=== PATIENT | male | born 1955 | race Caucasian/White ===

== ENCOUNTER 2019-09-11 01:46 | Inpatient (IN) | payer MEDICARE, OTHER ==
[2019-09-11] MEDS ORDERED: ONDANSETRON 4 MG/2 ML VIAL IVP PRN (02:03)
[2019-09-11] MEDS ORDERED: NALOXONE 0.4 MG/ML 1 ML VIAL IV PRN (02:03)
--- NOTE | 2019-09-11 02:03 | ED ---
Extremity Problem HPI - General Stated complaint: foot infection Time Seen by Provider: 09/11/19 01:48 - History of Present Illness Initial comments: This patient is 64-year-old man who presents as a transfer from [facility] to have orthopedic surgery evaluation of his left foot. The patient had been wearing a left foot boot as a constant once of having Charcot foot. Patient reportedly had been wearing the boot for extended period of weeks and then when it was taken off his foot was noted to be red, warm, and swollen. The patient states that he does have a little bit of pain but he has neuropathy so does not feel too much in either foot. He was seen at the other hospital, where he had computed tomography scan showing a what appeared to be infection into the forefoot and he was transferred here. The patient did receive dose of cefepime and reportedly vancomycin as well. MD Complaint: extremity pain, extremity swelling -: week(s) Location: left, lower extremity History of Same: No Radiation: none Quality: dull Consistency: constant Improves with: nothing Associated Symptoms: fever, other (Generalized weakness) - Related Data Home Medications Medication Instructions Recorded Confirmed Albuterol Nebulizer 1 ampul INHALATION QID PRN 03/04/14 03/09/14 Aspirin 325 mg PO DAILY 03/04/14 03/09/14 Insulin NPH Hum/Reg Insulin Hm 100 units SQ BID 03/04/14 03/09/14 [NovoLIN 70-30 100 UNIT/ML VIAL] Lisinopril-Hctz 20-12.5 mg 1 each PO DAILY 03/04/14 03/09/14 [Zestoretic 20-12.5] Metoprolol Er 200 mg PO BID 03/04/14 03/09/14 Simvastatin [Zocor] 20 mg PO DAILY 03/04/14 03/09/14 metFORMIN HCL [Glucophage] 500 mg PO BID 03/04/14 03/09/14 Allergies Allergy/AdvReac Type Severity Reaction Status Date / Time Penicillins Allergy Rash/Hives Verified 09/11/19 02:06 Review of Systems ROS Statement: Those systems with pertinent positive or pertinent negative responses have been documented in the HPI. ROS Other: All systems not noted in ROS Statement are negative. Constitutional: Reports: fever, weakness Respiratory: Denies: cough, dyspnea Cardiovascular: Reports: edema (Left foot). Denies: chest pain, palpitations, syncope Gastrointestinal: Denies: abdominal pain, nausea, vomiting Genitourinary: Denies: dysuria, hematuria Musculoskeletal: Reports: as per HPI, joint swelling (Left foot). Denies: back pain Skin: Denies: rash Neurological: Denies: headache, weakness, numbness Past Medical History Past Medical History: Asthma, Diabetes Mellitus, Hyperlipidemia, Hypertension, Myocardial Infarction ([place]) Additional Past Medical History / Comment(s): PT STATES WAS TOLD HAD SILENT MS IN LOWER HALF OF HEART. CONSTANT SINUS PROBLEMS-RUNNY NOSE-CLEAR- PHLEGM IN THROAT-. HARD TO SWALLOW FOOD AT TIMES-TRIES TO DRINK A LOT OF WATER WITH FOOD- HAS HAD UGI- WAS OK-CAUSES PRESSURE IN CHEST AREA WHEN HAS TO EAT FOOD LIKE BREADS. SOB ON EXERTION-TIRES EASILY. WAS TOLD PROBABLY HAS SLEEP APNEA BUT NEVER TESTED. DIVERTICULOSIS. CATARACT LEFT EYE Last Myocardial Infarction Date:: UNKNOWN History of Any Multi-Drug Resistant Organisms: MRSA Date of last positivie culture/infection: 11/2013 MDRO Source:: BACK Past Surgical History: Heart Catheterization Additional Past Surgical History / Comment(s): LT SHOULDER SURGERY- 4 PINS IN- INJURY @ WORK. LIPOMA OFF AREA BELOW RT BREAST & RT UPPER THIGH Past Anesthesia/Blood Transfusion Reactions: No Reported Reaction Smoking Status: Never smoker - Past Family History Father Family Medical History: Cancer, CVA/TIA, Myocardial Infarction ([place]) Additional Family Medical History / Comment(s): CA-VOICE BOX Mother Family Medical History: Cancer Additional Family Medical History / Comment(s): COLON CA General Exam General appearance: alert, in no apparent distress Head exam: Present: atraumatic, normocephalic Eye exam: Present: normal appearance. Absent: scleral icterus, conjunctival injection ENT exam: Present: normal oropharynx Respiratory exam: Present: normal lung sounds bilaterally. Absent: respiratory distress, wheezes, rales, rhonchi, stridor Cardiovascular Exam: Present: regular rate, normal rhythm, normal heart sounds. Absent: systolic murmur, diastolic murmur, rubs, gallop GI/Abdominal exam: Present: soft. Absent: distended, tenderness, guarding, rebound, rigid Extremities exam: Present: tenderness, pedal edema (Left) Neurological exam: Present: alert Skin exam: Present: warm, dry, erythema (Of the left lower extremity. Also swelling and tenderness of the left foot.). Absent: normal color, cyanosis, diaphoretic, petechiae, pallor Course Vital Signs 09/11/19 02:00 Temperature 100.5 F H Pulse Rate 95 Respiratory 18 Rate Blood Pressure 120/66 O2 Sat by Pulse 95 Oximetry Medical Decision Making - Medical Decision Making Patient is 64-year-old man with history of diabetes. He is transferred here to have evaluation and treatment of left foot infection. The patient has received initial dose of antibiotics. The case was discussed by the transferring facility with the orthopedic surgeon and they will see the patient. Disposition Clinical Impression: Left foot infection Disposition: ADMITTED IP TO THIS HOSP Condition: Serious Is patient prescribed a controlled substance at d/c from ED?: No Referrals: Stanley Murillo MD [Primary Care Provider] - 1-2 days
[2019-09-11] MEDS ORDERED: VANCOMYCIN IV PER PHARMACY 1 EACH MISC MISCELLANE PRN (02:06)
[2019-09-11] MEDS ORDERED: VANCOMYCIN 2,000 MG in SODIUM CHLORIDE 0.9% 500 ML 500 ML IVPB STA (02:08)
[2019-09-11] MEDS: ACETAMINOPHEN TAB 325 MG TAB PO PRN ×3 (02:37→22:06)
[2019-09-11] MEDS: SODIUM CHLORIDE 0.9% 1,000 ML IV SCH ×3 (02:38→17:37)
[2019-09-11] MEDS: HYDROmorphone 1 MG/ML 1 ML SYRINGE IVP PRN (02:38)
[2019-09-11 04:29] LABS: Calcium 8.5 mg/dL (8.4-10.2); Potassium 4.3 mmol/L (3.5-5.1)
[2019-09-11 05:30] LABS: Glucose,Whole Blood 226 mg/dL (75-99)
[2019-09-11 07:05] LABS: Glucose,Whole Blood 209 mg/dL (75-99)
[2019-09-11] MEDS: VANCOMYCIN 1,750 MG in SODIUM CHLORIDE 0.9% 500 ML 500 ML IVPB SCH ×2 (07:15→22:58)
[2019-09-11] MEDS: metFORMIN 500 MG TAB PO SCH ×2 (08:27→20:48)
[2019-09-11] MEDS ORDERED: LISINOPRIL-HCTZ 20-12.5 MG 1 EACH TAB PO SCH (09:00)
--- NOTE | 2019-09-11 09:51 | US ---
EXAMINATION TYPE: US venous doppler duplex LE LT DATE OF EXAM: 09/11/2019 9:36 AM COMPARISON: NONE CLINICAL HISTORY: Calf pain . Left foot infection SIDE PERFORMED: Left TECHNIQUE: The lower extremity deep venous system is examined utilizing real time linear array sonog elsi with graded compression, doppler sonography and color-flow sonography. VESSELS IMAGED: External Iliac Vein (EIV) Common Femoral Vein Deep Femoral Vein Greater Saphenous Vein * Femoral Vein Popliteal Vein Small Saphenous Vein * Proximal Calf Veins (* superficial vessels) Grayscale, color doppler, spectral doppler imaging performed of the deep veins of the left lower extr emity. There is normal flow, compressibility, vascular waveforms. Left Leg: Negative for DVT IMPRESSION: No sonographic evidence of deep venous thrombosis within the left lower extremity.
[2019-09-11] MEDS: FAMOTIDINE 20 MG TAB PO SCH ×2 (09:53→20:07)
[2019-09-11] MEDS: ATORVASTATIN 10 MG TAB PO SCH (09:53)
[2019-09-11] MEDS: LISINOPRIL 20 MG TAB PO SCH (09:53)
[2019-09-11 10:00] LABS: Glucose,Whole Blood 240 mg/dL (75-99)
[2019-09-11] MEDS: INSULIN ASPART (NovoLOG) 100 UNIT/ML VIAL SQ SCH ×4 (10:04→20:48)
--- NOTE | 2019-09-11 10:45 | P.CNOR ---
History of Present Illness - [facility] Consult date: 09/11/19 History of present illness: This patient is a 64-year-old male with a past medical history of diabetes, neuropathy, hypertension, and heart disease that was transferred to [facility] last night 09/10/2019 due to a left foot ulcer and infection. The patient has seen Dr. William as an outpatient for acute Charcot of the left fo ot. The patient states he last saw Dr. William in the office on 08/21/19. He is being followed for acute Charcot of the left foot with multiple tarsal metatarsal joint dislocations. The patient's left foot has been immobilized in a tall CAM boot. He states he takes his boot off daily and washes his foot, although he is unable to check the bottom of his foot. He states his son looked at the bottom of his foot yesterday, and told the patient that he has a large wound on the bottom of his foot. The patient therefore presented to [facility] for evaluation, where blood work and a CT scan of the left foot was obtained, which showed free air consistent with infection. The patient was grande bsequently transferred to [facility] for further evaluation and treatment. The patient was admitted under the care of internal medicine with a consult placed to orthopedic surgery for evaluation of his left foot ulcer. At the time of my exam, the patient states he isn't experiencing pain, as he has neuropathy and is unable to feel his feet. He states he has been feeling well the past week, he has been unable to eat due to nausea and "not feeling right". He states he does not check his feet regularly for wounds. He is unsure how long this ulcer has been present. He denies additional complaints today. Vital signs stable. Past Medical History Past Medical History: Asthma, Diabetes Mellitus, GERD/Reflux, Hearing Disorder / Deafness, Hyperlipidemia, Hypertension, Myocardial Infarction ([place]), Neurologic Disorder, Osteoarthritis (OA), Pneumonia, Sleep Apnea/CPAP/BIPAP Additional Past Medical History / Comment(s): parkinsons, neuropathy, Charcot's disease, PT STATES WAS TOLD HAD SILENT [place] IN LOWER HALF OF HEART. CONSTANT SINUS PROBLEMS-RUNNY NOSE-CLEAR- PHLEGM IN THROAT-. HARD TO SWALLOW FOOD AT TIMES-TRIES TO DRINK A LOT OF WATER WITH FOOD- HAS HAD UGI- WAS OK-CAUSES PRESSURE IN CHEST AREA WHEN HAS TO EAT FOOD LIKE BREADS. SOB ON EXERTION-TIRES EASILY. WAS TOLD PROBABLY HAS SLEEP APNEA BUT NEVER TESTED. DIVERTICULOSIS. CATARACT LEFT EYE Last Myocardial Infarction Date:: UNKNOWN History of Any Multi-Drug Resistant Organisms: MRSA Year Discovered:: 11/2013 MDRO Source:: BACK Past Surgical History: Cholecystectomy, Heart Catheterization, Orthopedic Surgery Additional Past Surgical History / Comment(s): LT SHOULDER SURGERY- 4 PINS IN- INJURY @ WORK. LIPOMA OFF AREA BELOW RT BREAST & RT UPPER THIGH Past Anesthesia/Blood Transfusion Reactions: No Reported Reaction Past Psychological History: No Psychological Hx Reported Smoking Status: Never smoker Past Alcohol Use History: Rare Past Drug Use History: None Reported - Past Family History Father Family Medical History: Cancer, CVA/TIA, Myocardial Infarction ([place]) Additional Family Medical History / Comment(s): CA-VOICE BOX Mother Family Medical History: Cancer Additional Family Medical History / Comment(s): COLON CA Medications and Allergies Home Medications Medication Instructions Recorded Confirmed Type Insulin NPH Hum/Reg Insulin Hm 85 units SQ BID 03/04/14 09/11/19 History [NovoLIN 70-30 100 UNIT/ML VIAL] Aspirin 81 mg PO DAILY 09/11/19 09/11/19 History Lisinopril 20 mg PO DAILY 09/11/19 09/11/19 History Metoprolol Succinate [Toprol XL] 200 mg PO DAILY 09/11/19 09/11/19 History Simvastatin 40 mg PO DAILY 09/11/19 09/11/19 History metFORMIN HCL 1,000 mg PO BID 09/11/19 09/11/19 History Allergies Allergy/AdvReac Type Severity Reaction Status Date / Time Penicillins Allergy Rash/Hives Verified 09/11/19 08:21 Physical Examination On examination, the patient is lying in bed in no apparent distress. He is alert and oriented 3. His head appears normocephalic and atraumatic. His breathing appears nonlabored. On inspection of the left lower extremity, there is diffuse swelling, erythema of the left foot, ankle, calf. There is a <1 cm plantar ulcer in the lateral aspect of the midfoot. There is foul-smelling drainage from the ulcer. No surrounding fluctuance. No pain with passive range of motion of the toes or ankle. There is tenderness to palpation of the calf. Sensation of the foot is subjectively decreased secondary to neuropathy. Motor function appears to be intact of the left lower extremity. The left lower extremity is warm and well-perfused with brisk capillary refill distally. Results Computed tomography scan left foot with contrast 09/10/2019, obtained at [facility] in [place], [place] (per radiology report): Extensive deformity of the midfoot consistent with neuropathic arthropathy with some destructive changes and subluxation deformity. There is Lis franc dislocation of the midfoot with subluxation of the bases of the metatarsals. There soft tissue air that is suspicious for infection. There is an apparent plantar ulcer at the lateral aspect of the midfoot that could be in communication with the intertarsal joints. The findings are certainly suspicious for septic arthritis of the midfoot. - Labs Labs: Abnormal Lab Results - Last 24 Hours (Table) 09/11/19 09/11/19 09/11/19 Range/Units 03:46 05:17 06:54 Sodium 135 L (137-145) mmol/L BUN 42 H (9-20) mg/dL Creatinine 1.38 H (0.66-1.25) mg/dL Glucose 212 H (74-99) mg/dL POC Glucose (mg/dL) 226 H 209 H (75-99) mg/dL Result Diagrams: 09/11/19 03:46 Assessment and Plan Assessment: Acute Charcot left foot with multiple tarsal metatarsal joint dislocations, with open plantar ulcer. Plan: I discussed the clinical and imaging findings with the patient. We will defer management of the patient's left foot plantar ulcer to Dr. Caldwell vascular surgeon and the wound care team. Patient should remain non-weight bearing on left foot. Physical therapy ordered for gait and balance training. The patient will be kept NPO until evaluation by Dr. Caldwell. Left lower extremity Doppler US ordered to rule-out DVT, as the patient has been immobilized in a tall CAM boot. The patient may follow-up in the office as an outpatient in regards to his left foot Charcot arthritis. Patient discussed with Dr. William.
--- NOTE | 2019-09-11 11:06 | P.CONS ---
History of Present Illness - Reason for Consult Consult date: 09/11/19 Wound care - History of Present Illness This is a 64-year-old male who was transferred from [facility] related pain and infection to the left forefoot plantar aspect. Patient has past medical history of diabetes, neuropathy, hypertension, and heart disease. The patient has been seen by Dr. William in the outpatient setting for acute Charcot of left foot. The patient had seen Dr. William in the office on 07/27. The left foot was immobilized in a tall cam boot. The patient stated that he takes the boot off daily and watches his feet however he has not been able to check the bottom of his foot. He was noticing some nuchal see walking, nausea and just not feeling right to the bottom of his foot and his son looked at it finding a large wound to the bottom of the foot. The patient then was presented to the [facility] for evaluation blood work and a computed tomography scan of the foot was obtained. CT showed free air consistent with infection. Review of Systems Review Of Systems: Constitutional: No fever, reports chills, no night sweats. No weight change. Report weakness and fatigue no lethargy. No daytime sleepiness. Integumentary:reports wounds, no lesions. No rash or pruritus. No unusual bruising. No change in hair or nails. Past Medical History Past Medical History: Asthma, Diabetes Mellitus, GERD/Reflux, Hearing Disorder / Deafness, Hyperlipidemia, Hypertension, Myocardial Infarction ([place]), Neurologic Disorder, Osteoarthritis ([place]), Pneumonia, Sleep Apnea/CPAP/BIPAP Additional Past Medical History / Comment(s): parkinsons, neuropathy, Charcot's disease, PT STATES WAS TOLD HAD SILENT AL IN LOWER HALF OF HEART. CONSTANT SINUS PROBLEMS-RUNNY NOSE-CLEAR- PHLEGM IN THROAT-. HARD TO SWALLOW FOOD AT TIMES-TRIES TO DRINK A LOT OF WATER WITH FOOD- HAS HAD UGI- WAS OK-CAUSES PRESSURE IN CHEST AREA WHEN HAS TO EAT FOOD LIKE BREADS. SOB ON EXERTION-TIRES EASILY. WAS TOLD PROBABLY HAS SLEEP APNEA BUT NEVER TESTED. DIVERTICULOSIS. CATARACT LEFT EYE Last Myocardial Infarction Date:: UNKNOWN History of Any Multi-Drug Resistant Organisms: MRSA Year Discovered:: 11/2013 MDRO Source:: BACK Past Surgical History: Cholecystectomy, Heart Catheterization, Orthopedic Surgery Additional Past Surgical History / Comment(s): LT SHOULDER SURGERY- 4 PINS IN- INJURY @ WORK. LIPOMA OFF AREA BELOW RT BREAST & RT UPPER THIGH Past Anesthesia/Blood Transfusion Reactions: No Reported Reaction Past Psychological History: No Psychological Hx Reported Smoking Status: Never smoker Past Alcohol Use History: Rare Past Drug Use History: None Reported - Past Family History Father Family Medical History: Cancer, CVA/TIA, Myocardial Infarction ([place]) Additional Family Medical History / Comment(s): CA-VOICE BOX Mother Family Medical History: Cancer Additional Family Medical History / Comment(s): COLON CA Medications and Allergies Home Medications Medication Instructions Recorded Confirmed Type Insulin NPH Hum/Reg Insulin Hm 85 units SQ BID 03/04/14 09/11/19 History [NovoLIN 70-30 100 UNIT/ML VIAL] Aspirin 81 mg PO DAILY 09/11/19 09/11/19 History Lisinopril 20 mg PO DAILY 09/11/19 09/11/19 History Metoprolol Succinate [Toprol XL] 200 mg PO DAILY 09/11/19 09/11/19 History Simvastatin 40 mg PO DAILY 09/11/19 09/11/19 History metFORMIN HCL 1,000 mg PO BID 09/11/19 09/11/19 History Allergies Allergy/AdvReac Type Severity Reaction Status Date / Time Penicillins Allergy Rash/Hives Verified 09/11/19 08:21 Physical Exam Vitals: Vital Signs Temp Pulse Pulse Resp BP BP Pulse Ox 09/11/19 07:00 98.4 F 90 18 134/74 95 09/11/19 04:26 15 09/11/19 04:08 98.4 F 95 15 114/66 94 L 09/11/19 03:55 88 18 100/53 98 09/11/19 02:00 100.5 F H 95 18 120/66 95 Intake and Output 09/10/19 09/11/19 09/11/19 22:59 06:59 14:59 Other: Voiding Method Urinal Toilet Urinal Weight 113.398 kg Physical exam: General Appearance: Alert, cooperative, no distress, appears stated age. Skin: Ulceration to left forefoot plantar aspect measuring approximately 0.5 x 1 x 3 cm, able to palpate bone, purulent drainage from site, large amount of slough and nonviable tissue noted, erythema and induration to the periwound. Neuropathy noted, 1+ pedal pulse, all other Skin color, texture, tugor normal, no rashes or lesions. Neurologic: Alert oriented x3 Results CBC & Chem 7: 09/11/19 03:46 Labs: Abnormal Lab Results - Last 24 Hours (Table) 09/11/19 09/11/19 09/11/19 Range/Units 03:46 05:17 06:54 Sodium 135 L (137-145) mmol/L BUN 42 H (9-20) mg/dL Creatinine 1.38 H (0.66-1.25) mg/dL Glucose 212 H (74-99) mg/dL POC Glucose (mg/dL) 226 H 209 H (75-99) mg/dL 09/11/19 Range/Units 09:48 Sodium (137-145) mmol/L BUN (9-20) mg/dL Creatinine (0.66-1.25) mg/dL Glucose (74-99) mg/dL POC Glucose (mg/dL) 240 H (75-99) mg/dL Assessment and Plan (1) Type 2 diabetes mellitus with diabetic foot ulcer Current Visit: Yes Status: Acute Code(s): E11.621 - TYPE 2 DIABETES MELLITUS WITH FOOT ULCER; L97.509 - NON-PRESSURE CHRONIC ULCER OTH PRT UNSP FOOT W UNSP SEVERITY SNOMED Code(s): 766142587 (2) Left foot infection Current Visit: Yes Status: Acute Code(s): L08.9 - LOCAL INFECTION OF THE SKIN AND SUBCUTANEOUS TISSUE, UNSP SNOMED Code(s): 749193658 Plan: Diabetic foot ulcer grade 3 Plan: Wound culture obtained, MRI of the foot with and without contrast to rule out osteomyelitis, consult for Dr. Caldwell for possible surgical wound debridement. Arterial Doppler ordered. Venous Dopplers negative for DVT. apply absorptive silver rope moistened, dry gauze and rolled gauze to secure. Remove the absorptive silver rope prior to the MRI and reapply once MRI is complete. Discussed with patient the importance of continuing care treatment in outpatient setting. Patient is agreeable verbalized understanding. Patient to be set up with wound care outpatient. Thank you for the consultation. Any questions please contact the wound care center DNP note has been reviewed and discussed with Dr. Vinson and the impression and plan of care has been directed as dictated.
[2019-09-11 12:10] LABS: Glucose,Whole Blood 199 mg/dL (75-99)
[2019-09-11] MEDS: ASPIRIN 81 MG PO SCH (12:27)
[2019-09-11 13:29] VITALS: BMI 35.9
--- NOTE | 2019-09-11 14:35 | CONS ---
CONSULTATION Patient a 64-year-old diabetic male. Patient has a left Charcot foot under care of Dr. William as an outpatient. Patient developed some redness on the dorsal aspect of the foot and there is an open wound on the plantar aspect of the left foot that she noticed a few days ago and has been admitted for further evaluation. CT scan showed there is soft tissue that is suspicious for infection. Patient also has a Charcot foot deformity of the left foot. MEDICAL HISTORY: History of diabetes mellitus, hyperlipidemia, hypertension, myocardial infarction in the past, sleep apnea. Patient is in his room, lying comfortably in bed. NECK: Supple, trachea central. CHEST: Clear. ABDOMEN: Soft, femorals are not not palpable, posterior tibial, dorsalis pedis by the Doppler. Left foot dorsal aspect has some swelling and there is an open wound on the plantar aspect of the foot which is muscle deep. PLAN: Culture has been taken. Patient on vancomycin, excess silver rope is seen in the wound. We will watch very closely and will continue with the vancomycin. Discussed the options with the patient. We will follow very closely and review this in the morning. He may need some open wound debridement if needed. First we try to use IV antibiotic if cellulitis and the dorsal aspect of the foot will be watched very closely. Thank you very much. MMODL / IJN: [id number] /
--- NOTE | 2019-09-11 16:54 | MR ---
EXAMINATION TYPE: MR foot LT wo/w con DATE OF EXAM: 09/11/2019 COMPARISON: HISTORY: Rule out osteomyelitis, diabetic foot ulceration CONTRAST: Standard multiplanar, multisequence MRI departmental protocol utilizing 11.5 mL intravenous Gadavist gadolinium contrast. There is extensive subcutaneous edema of the forefoot. There is lateral subluxation at the third and fourth and fifth tarsometatarsal joints. There is abnormal decreased signal on the T1 images in the n avicular bone and the second and third cuneiform bones. There is abnormal decreased signal in the bas e of the fourth and fifth metatarsals. There is patchy decreased signal in the first cuneiform bone. Cuboidal bone also shows edema. I see no displaced fracture. Contrast images show no pathologic enhan cement of all of the edematous bones of the midfoot. There are multiple variable sized areas of decre ased signal in multiple areas of the midfoot related to soft tissue air also seen on the CT scan yest andrew. IMPRESSION: Disruption of multiple joints of the midfoot consistent with neuropathic arthropathy. There is latera l subluxation at the third and fourth and fifth tarsal metatarsal joints consistent with Lisfranc dis ruption.. Diffuse subcutaneous edema. Multiple areas of pathologic enhancement are suspicious for ost eomyelitis. There is increase in the soft tissue air bubbles in the mid foot compared to CT scan yest erday and consistent with infection.
[2019-09-11 17:28] LABS: Glucose,Whole Blood 198 mg/dL (75-99)
[2019-09-11] MEDS: CEFEPIME 2 GM in SODIUM CHLORIDE 0.9% 100 ML IVPB SCH (17:38)
[2019-09-11] MEDS: INSULN ASP PRT/INSULIN ASPART 100 UNIT/ML 10 ML VIAL SQ SCH (18:02)
[2019-09-11] MEDS: CLINDAMYCIN 900 MG in DEXTROSE 5% IN WATER 50 ML IVPB SCH ×2 (18:22)
[2019-09-11 20:12] LABS: Glucose,Whole Blood 217 mg/dL (75-99)
[2019-09-11] MEDS: CARBIDOPA-LEVODOPA 25-100 MG 1 EACH TAB PO SCH (20:49)
--- NOTE | 2019-09-11 22:17 | P.HPIM ---
History of Present Illness H&P Date: 09/11/19 Chief Complaint: Left foot wound History of presenting complaint: This is a 64-year-old patient of Dr. Stanley Murillo. Chronic stable medical conditions include diabetes, GERD, hyperlipidemia, Parkinson's disease, severe peripheral neuropathy and some dysphagia. Patient being followed by Dr[facility]. For left Charcot foot. Hasn't his son came and discomfort is a significant wound on the plantar aspect. Patient has minimal sensation in that foot. The baseline patient's vision is slightly blurry.. Patient was sent down here to be evaluated by orthopedics. Because of the significant wound rather deep on the plantar aspect, vascular surgery Dr. Caldwell was also consulted. Has had some low-grade fevers and chills. Appetite is fair. Baseline uses a walker. Lives alone. Review of systems: GEN.: Tired EYES: Baseline blurry vision HEENT: None NECK: None RESPIRATORY: None CARDIOVASCULAR: None GASTROINTESTINAL: Normally has about average of 10 bowel movements a day GENITOURINARY: None MUSCULOSKELETAL: None LYMPHATICS: None HEMATOLOGICAL: None PSYCHIATRY: None NEUROLOGICAL: Poor peripheral sensation Past medical history to include: Diabetes, GERD, hypertension, hyperlipidemia, Parkinson's disease, peripheral neuropathy, some dysphagia, gait dysfunction uses a walker, left Charcot foot Social history: Does not smoke, alcohol, rarely, lives alone. Does use a walker Physical examination: VITAL SIGNS: 100.5, 95, 18, 120/66, 95% room air GENERAL: [BMI 35.9, sitting up, propped up in bed EYES: Pupils equal. Conjunctiva normal. HEENT: External appearance of nose and ears normal, oral cavity grossly normal. NECK: JVD not raised; masses not palpable. HEART: First and second heart sounds are normal; no edema. LUNGS: Respiratory rate normal; clear to auscultation. ABDOMEN: Soft, nontender, liver spleen not palpable, no masses palpable. PSYCH: Alert and oriented x3; mood and affect normal. NEUROLOGICAL: [Cranial nerves grossly intact; no facial asymmetry, decreased sensation distally, bradykinesia LYMPHATICS: No lymph nodes palpable in the axilla and neck EXTREMITY: Left foot is rather large disfigured, large wound on the plantar aspect more details and pictures the chart INVESTIGATIONS, reviewed in the clinical context: Impression 4.3 bun 42 creatinine 1.38 Accu-Cheks 212, 226 Left leg Doppler-negative for DVT Assessment: -This is a patient with long-standing left Charcot foot which has been in a boot for last 3-4 months. Now patient presents with a large deep wound down to the bone. Some gas bubbles noted. Strongly suspicious for gas-forming organism. Patient will need debridement and antibiotics. -Diabetic foot phone on the plantar aspect left foot -Chronic left Charcot foot -Diabetes mellitus type 2 causing peripheral neuropathy -GERD -Hyperlipidemia -Chronic dysphagia likely from Parkinson's -Idiopathic Parkinson's disease -Suspect chronic kidney disease secondary to diabetic nephropathy Plan: Patient is already started on cefepime, clindamycin and vancomycin. Given the renal failure will stopped the vancomycin . Consultations have been made to vascular surgery, ID and orthopedics. Accu-Cheks will be followed home medications resumed. Lovenox for DVT prophylaxis. Patient be taken to the or for debridement. Patient will need more radical surgery down the road. We looking into some protracted course of antibiotics here. Foot MRI was ordered. We will check UA and repeat ultrasound Past Medical History Past Medical History: Asthma, Diabetes Mellitus, GERD/Reflux, Hearing Disorder / Deafness, Hyperlipidemia, Hypertension, Myocardial Infarction ([place]), Neurologic Disorder, Osteoarthritis (OA), Pneumonia, Sleep Apnea/CPAP/BIPAP Additional Past Medical History / Comment(s): parkinsons, neuropathy, Charcot's disease, PT STATES WAS TOLD HAD SILENT [place] IN LOWER HALF OF HEART. CONSTANT SINUS PROBLEMS-RUNNY NOSE-CLEAR- PHLEGM IN THROAT-. HARD TO SWALLOW FOOD AT TIMES-TRIES TO DRINK A LOT OF WATER WITH FOOD- HAS HAD UGI- WAS OK-CAUSES PRESSURE IN CHEST AREA WHEN HAS TO EAT FOOD LIKE BREADS. SOB ON EXERTION-TIRES EASILY. WAS TOLD PROBABLY HAS SLEEP APNEA BUT NEVER TESTED. DIVERTICULOSIS. CATARACT LEFT EYE Last Myocardial Infarction Date:: UNKNOWN History of Any Multi-Drug Resistant Organisms: MRSA Date of last positivie culture/infection: 11/2013 MDRO Source:: BACK Past Surgical History: Cholecystectomy, Heart Catheterization, Orthopedic Surgery Additional Past Surgical History / Comment(s): LT SHOULDER SURGERY- 4 PINS IN- INJURY @ WORK. LIPOMA OFF AREA BELOW RT BREAST & RT UPPER THIGH Past Anesthesia/Blood Transfusion Reactions: No Reported Reaction Past Psychological History: No Psychological Hx Reported Smoking Status: Never smoker Past Alcohol Use History: Rare Past Drug Use History: None Reported - Past Family History Father Family Medical History: Cancer, CVA/TIA, Myocardial Infarction ([place]) Additional Family Medical History / Comment(s): CA-VOICE BOX Mother Family Medical History: Cancer Additional Family Medical History / Comment(s): COLON CA Medications and Allergies Home Medications Medication Instructions Recorded Confirmed Type Insulin NPH Hum/Reg Insulin Hm 85 units SQ BID 03/04/14 09/11/19 History [NovoLIN 70-30 100 UNIT/ML VIAL] Aspirin 81 mg PO DAILY 09/11/19 09/11/19 History Carbidopa-Levodopa 25-100 mg 1 each PO QID 09/11/19 09/11/19 History [Sinemet 25-100] Lisinopril 20 mg PO BID 09/11/19 09/11/19 History Metoprolol Succinate [Toprol XL] 200 mg PO DAILY 09/11/19 09/11/19 History Simvastatin 40 mg PO DAILY 09/11/19 09/11/19 History metFORMIN HCL 1,000 mg PO BID 09/11/19 09/11/19 History Allergies Allergy/AdvReac Type Severity Reaction Status Date / Time Penicillins Allergy Rash/Hives Verified 09/11/19 08:21 Physical Exam Vitals: Vital Signs Temp Pulse Pulse Resp BP BP Pulse Ox 09/11/19 07:00 98.4 F 90 18 134/74 95 09/11/19 04:26 15 09/11/19 04:08 98.4 F 95 15 114/66 94 L 09/11/19 03:55 88 18 100/53 98 09/11/19 02:00 100.5 F H 95 18 120/66 95 Intake and Output 09/10/19 09/11/19 09/11/19 22:59 06:59 14:59 Other: Voiding Method Urinal Toilet Urinal Weight 113.398 kg Results CBC & Chem 7: 09/11/19 03:46 Labs: Abnormal Lab Results - Last 24 Hours (Table) 09/11/19 09/11/19 09/11/19 Range/Units 03:46 05:17 06:54 Sodium 135 L (137-145) mmol/L BUN 42 H (9-20) mg/dL Creatinine 1.38 H (0.66-1.25) mg/dL Glucose 212 H (74-99) mg/dL POC Glucose (mg/dL) 226 H 209 H (75-99) mg/dL 09/11/19 Range/Units 09:48 Sodium (137-145) mmol/L BUN (9-20) mg/dL Creatinine (0.66-1.25) mg/dL Glucose (74-99) mg/dL POC Glucose (mg/dL) 240 H (75-99) mg/dL Thrombosis Risk Factor Assmnt - Choose All That Apply Each Factor Represents 1 point: Obesity (BMI >25), Swollen legs (current) Each Risk Factor Represents 2 Points: Age 61-74 years Each Risk Factor Represents 3 Points: Family history of DVT/PE Thrombosis Risk Factor Assessment Total Risk Factor Score: 7 Thrombosis Risk Factor Assessment Level: High Risk
--- NOTE | 2019-09-12 00:03 | P.CONS ---
History of Present Illness - Reason for Consult Consult date: 09/11/19 left foot cellulitis Requesting physician: Mohit Caldwell - Chief Complaint left foot pain and swelling x 2 days - History of Present Illness Patient is a 64-year male with a past medical history significant for left Charcot foot patient apparently has been awaiting the boot for extended periods of time and he was taken off his foot was noted to be red warm and swollen apparently the son noticed did have a wound on the plantar aspect of his right foot about 2 days ago and subsequently he noticed the foot to be getting swollen and red that has progressively get worse over the last 2 days patient has been complaining of pain to the left foot to be more of a sharp to dull aching intensity about 8 out of 10 and no radiation patient did have some drainage from his left foot plantar wound but no significant foul-smelling fluid patient initially went to [facility] with the patient was evaluated by the ER physician. Have a CT of the foot which did shows evidence of infection patient received a dose of cefepime and vancomycin and subsequently transferred to [facility] for further management patient on arrival to the ER did have a fever of 100.5 F patient was tachycardic no CBC has been done this admission creatinine is 1.38 left foot wound culture has been obtained patient has been continued on the on vancomycin infectious disease consulted for further recommendation regarding the biotics patient also have an MRI of the foot completed which did show some extensive subcutaneous edema of the forefoot foot and multiple areas of pathological enhancement suspicious osteomyelitis did not mention any patient is clinically infectious disease has been consulted for further recommendation regarding antibiotic therapy. Review of Systems CONSTITUTIONAL: Positive for weakness along with the fever. EYES: No complaint. ENT: No complaint. RESPIRATORY: No complaint. CARDIOVASCULAR: No complaint. GENITOURINARY: No complaint. GASTROINTESTINAL: No complaint. MUSCULOSKELETAL: As per history of present illness INTEGUMENTARY: As per history of present illness. PSYCHOLOGIC: No complaint. ENDOCRINE: No complaint. NEUROLOGIC: No complaint. Past Medical History Past Medical History: Asthma, Diabetes Mellitus, GERD/Reflux, Hearing Disorder / Deafness, Hyperlipidemia, Hypertension, Myocardial Infarction ([place]), Neurologic Disorder, Osteoarthritis (OA), Pneumonia, Sleep Apnea/CPAP/BIPAP Additional Past Medical History / Comment(s): parkinsons, neuropathy, Charcot's disease, PT STATES WAS TOLD HAD SILENT [place] IN LOWER HALF OF HEART. CONSTANT SINUS PROBLEMS-RUNNY NOSE-CLEAR- PHLEGM IN THROAT-. HARD TO SWALLOW FOOD AT TIMES-TRIES TO DRINK A LOT OF WATER WITH FOOD- HAS HAD UGI- WAS OK-CAUSES PRESSURE IN CHEST AREA WHEN HAS TO EAT FOOD LIKE BREADS. SOB ON EXERTION-TIRES EASILY. WAS TOLD PROBABLY HAS SLEEP APNEA BUT NEVER TESTED. DIVERTICULOSIS. CATARACT LEFT EYE Last Myocardial Infarction Date:: UNKNOWN History of Any Multi-Drug Resistant Organisms: MRSA Year Discovered:: 11/2013 MDRO Source:: BACK Past Surgical History: Cholecystectomy, Heart Catheterization, Orthopedic Surgery Additional Past Surgical History / Comment(s): LT SHOULDER SURGERY- 4 PINS IN- INJURY @ WORK. LIPOMA OFF AREA BELOW RT BREAST & RT UPPER THIGH Past Anesthesia/Blood Transfusion Reactions: No Reported Reaction Past Psychological History: No Psychological Hx Reported Smoking Status: Never smoker Past Alcohol Use History: Rare Past Drug Use History: None Reported - Past Family History Father Family Medical History: Cancer, CVA/TIA, Myocardial Infarction ([place]) Additional Family Medical History / Comment(s): CA-VOICE BOX Mother Family Medical History: Cancer Additional Family Medical History / Comment(s): COLON CA Medications and Allergies Home Medications Medication Instructions Recorded Confirmed Type Insulin NPH Hum/Reg Insulin Hm 85 units SQ BID 03/04/14 09/11/19 History [NovoLIN 70-30 100 UNIT/ML VIAL] Aspirin 81 mg PO DAILY 09/11/19 09/11/19 History Carbidopa-Levodopa 25-100 mg 1 each PO QID 09/11/19 09/11/19 History [Sinemet 25-100] Lisinopril 20 mg PO BID 09/11/19 09/11/19 History Metoprolol Succinate [Toprol XL] 200 mg PO DAILY 09/11/19 09/11/19 History Simvastatin 40 mg PO DAILY 09/11/19 09/11/19 History metFORMIN HCL 1,000 mg PO BID 09/11/19 09/11/19 History Allergies Allergy/AdvReac Type Severity Reaction Status Date / Time Penicillins Allergy Rash/Hives Verified 09/11/19 08:21 Physical Exam Vitals: Vital Signs Temp Pulse Pulse Resp BP BP Pulse Ox 09/11/19 07:00 98.4 F 90 18 134/74 95 09/11/19 04:26 15 09/11/19 04:08 98.4 F 95 15 114/66 94 L 09/11/19 03:55 88 18 100/53 98 09/11/19 02:00 100.5 F H 95 18 120/66 95 Intake and Output 09/11/19 09/11/19 09/11/19 06:59 14:59 22:59 Intake Total 1000 Balance 1000 Intake: IV 1000 Sodium Chloride 0.9% 1, 1000 000 ml @ 125 mls/hr IV . Q8H [facility] Rx#:[id number] Other: Voiding Method Urinal Toilet Toilet Urinal Urinal Weight 113.398 kg 113.398 kg GENERAL DESCRIPTION: Elderly male lying in bed, no distress. No tachypnea or accessory muscle of respiration use. HEENT: Shows Pallor , no scleral icterus. Oral mucous membrane is dry. NECK: Trachea central, no thyromegaly. LUNGS: Unlabored breathing. Clear to auscultation anteriorly. No wheeze or crackle. HEART: S1, S2, regular rate and rhythm. ABDOMEN: Soft, no tenderness , guarding or rigidity EXTREMITIES: Left foot plantar wound with some drainage no foul-smelling the patient did have a swelling and redness of the left foot which is warm to touch, no significant crepitus was elicited SKIN: No rash, no masses palpable. NEUROLOGICAL: The patient is awake, alert, oriented x3, mood and affect normal. Results CBC & Chem 7: 09/11/19 03:46 Labs: Abnormal Lab Results - Last 24 Hours (Table) 09/11/19 09/11/19 09/11/19 Range/Units 03:46 05:17 06:54 Sodium 135 L (137-145) mmol/L BUN 42 H (9-20) mg/dL Creatinine 1.38 H (0.66-1.25) mg/dL Glucose 212 H (74-99) mg/dL POC Glucose (mg/dL) 226 H 209 H (75-99) mg/dL 09/11/19 09/11/19 Range/Units 09:48 11:59 Sodium (137-145) mmol/L BUN (9-20) mg/dL Creatinine (0.66-1.25) mg/dL Glucose (74-99) mg/dL POC Glucose (mg/dL) 240 H 199 H (75-99) mg/dL Assessment and Plan Assessment: 1-patient presented to the hospital with sepsis in this patient who did have a fever tachycardia source is left foot cellulitis and concern for possible abscess though the MRI he did not show any discrete fluid collection or any features of fasciitis patient did have a CPK checked which has been normal as well we will need to cover for both gram-positive as well as gram-negative pathogen in view of his history of underlying diabetes mellitus 2-patient with penicillin allergy that would limit the number of antibiotics safe to use (1) Left foot infection Current Visit: Yes Status: Acute Code(s): L08.9 - LOCAL INFECTION OF THE SKIN AND SUBCUTANEOUS TISSUE, UNSP SNOMED Code(s): 454814416 (2) Type 2 diabetes mellitus with diabetic foot ulcer Current Visit: Yes Status: Acute Code(s): E11.621 - TYPE 2 DIABETES MELLITUS WITH FOOT ULCER; L97.509 - NON-PRESSURE CHRONIC ULCER OTH PRT UNSP FOOT W UNSP SEVERITY SNOMED Code(s): 535836311 Plan: 1-await surgical debridement and deep culture Case has been discussed in detail with vascular surgery 2-vancomycin pharmacy to dose her with a target trough of 15 while watching her kidney function and Vanco trough closely. 3-cefepime 2 g every 12 hours and clindamycin 900 every 8hr We will follow on clinical condition and cultures to further adjust medication if needed Thank you for this consultation we will follow the patient along with you Time with Patient: Greater than 30
[2019-09-12] MEDS: CLINDAMYCIN 900 MG in DEXTROSE 5% IN WATER 50 ML IVPB SCH ×6 (02:10→16:10)
[2019-09-12] MEDS: SODIUM CHLORIDE 0.9% 1,000 ML IV SCH ×3 (03:25→17:33)
[2019-09-12] MEDS: ACETAMINOPHEN TAB 325 MG TAB PO PRN (05:28)
[2019-09-12] MEDS: CEFEPIME 2 GM in SODIUM CHLORIDE 0.9% 100 ML IVPB SCH ×2 (05:57→17:29)
[2019-09-12 06:56] LABS: Basophils # (A) 0.1 k/uL (0-0.2); Basophils % (A) 1 %; Eosinophils # (A) 0.1 k/uL (0-0.7); Eosinophils % (A) 1 %; HCT 35.5 % (39.0-53.0); HGB 11.6 gm/dL (13.0-17.5); Lymphocytes # (A) 0.6 k/uL (1.0-4.8); Lymphocytes % (A) 5 %; MCHC 32.7 g/dL (31.0-37.0); MCV 88.6 fL (80.0-100.0); Mean Platelet Volume 7.7; Monocytes # (A) 0.8 k/uL (0-1.0); Monocytes % (A) 6 %; Neutrophils # (A) 11.9 k/uL (1.3-7.7); Neutrophils % (A) 86 %; Platelet Count 325 k/uL (150-450); RDW 14.4 % (11.5-15.5); WBC 13.8 k/uL (3.8-10.6)
[2019-09-12 07:05] LABS: Potassium 4.5 mmol/L (3.5-5.1)
[2019-09-12 07:10] LABS: Glucose,Whole Blood 166 mg/dL (75-99)
[2019-09-12] MEDS ORDERED: MIDAZOLAM 2 MG/2 ML VIAL ONE (08:00)
[2019-09-12] MEDS ORDERED: fentaNYL (PF) 50 MCG/ML 2 ML AMP ONE (08:00)
[2019-09-12] MEDS ORDERED: PHENYLEPHRINE-0.9% NACL SYG 1 MG/10 ML SYRINGE ONE (08:00)
[2019-09-12] MEDS ORDERED: KETAMINE 10 MG/ML 20 ML VIAL ONE (08:00)
[2019-09-12] MEDS ORDERED: SUCCINYLCHOLINE CHLORIDE 100 MG/5 ML SYR IV ONE (08:00)
[2019-09-12] MEDS ORDERED: PROPOFOL 10 MG/ML 20 ML VIAL IV ONE (08:00)
[2019-09-12] MEDS ORDERED: LIDOCAINE 1% INJ 10MG/ML (20 ML MDV) ONE (08:00)
[2019-09-12] MEDS: INSULN ASP PRT/INSULIN ASPART 100 UNIT/ML 10 ML VIAL SQ SCH ×2 (08:03→17:20)
[2019-09-12] MEDS: INSULIN ASPART (NovoLOG) 100 UNIT/ML VIAL SQ SCH ×4 (08:03→20:35)
[2019-09-12] MEDS ORDERED: LACTATED RINGERS 1,000 ML IV ONE (08:35)
[2019-09-12] MEDS ORDERED: IV FLUID CONTINUATION 100 ML IV ONE (08:35)
--- NOTE | 2019-09-12 09:19 | PN ---
PROGRESS NOTE This is a 64-year-old diabetic male with Charcot foot. The patient came with wound on plantar aspect of 5 days duration. CTA and MRI showed gas-forming organism. The patient was originally scheduled for I and D and debridement this morning when we saw the foot the whole foot is swollen and is red and infection spreading all the way to on the dorsum and plantar aspect of the foot with marked tenderness noted, most likely is a gas-forming organism. We have discussed with the patient and the family this foot is not salvageable. PLAN: Disarticulation of the foot followed by infection control, detailed above the amputation. The patient and family both agree. Anesthesia agreed. We will proceed with disarticulation of the foot. MMODL / IJN: [id number] /
[2019-09-12 09:26] LABS: Glucose,Whole Blood 237 mg/dL (75-99)
[2019-09-12] MEDS ORDERED: INSULIN ASPART (NovoLOG) 100 UNIT/ML VIAL SQ ONE (09:28)
--- NOTE | 2019-09-12 09:46 | OP ---
OPERATIVE REPORT PREOPERATIVE DIAGNOSIS: Charcot foot with gas-forming organism, plantar aspect of the _left____foot with marked redness of the dorsum aspect of the foot with marked tenderness and fluctuation on the dorsal aspect of the foot and on the plantar aspect. There is open wound which is draining pus with marked tenderness. His MRI findings are dissection of the multiple joints of the mid foot consistent with neuropathic arthropathy. There is also subluxation of the third, fourth and fifth metatarsal joint consistent with Lisfranc disruption and there is diffuse subcutaneous edema. Multiple area of pathological enhancement consistent osteomyelitis. There is increase in the soft tissue air bubbles noted at the mid foot. POSTOPERATIVE DIAGNOSIS: OPERATION: Disarticulation of the foot. DESCRIPTION OF THE PROCEDURE: This patient was seen yesterday. He was scheduled for I and D and debridement this morning. There was diffuse swelling and redness with marked tenderness on the dorsal aspect of the foot and plantar aspect of the foot seems to be this is a gas- forming organism and there was excessive drainage noted from the open wound on the plantar aspect. Discussed with the family and the son, this gentleman will need disarticulation of the foot and then patient will need BK or an AKA amputation. They all agreed. Under anesthesia, _left____leg was prepped and draped in the usual sterile manner and drapes were applied in sterile manner. Incision was made at the ankle on the dorsum aspect of the foot which went circumferentially creating the posterior flap from the tibia and fibula and the foot was kept in flexion position and all the tendons, joints, ligaments were divided. The tibial artery was identified and suture ligated with 3-0 Prolene. Tendo calcaneus was also divided and foot was . We took deep culture and swab culture from the wound. Hemostasis was well controlled and wound was irrigated with hydrogen peroxide and saline. Pressure dressing applied. Patient transferred to the recovery room in satisfactory condition. MMODL / IJN: [id number] / [facility]OREM[facility]el
[2019-09-12] MEDS: METOPROLOL SUCCINATE (ER) 100 MG TAB.ER.24H PO SCH (10:24)
[2019-09-12] MEDS: ATORVASTATIN 10 MG TAB PO SCH (10:25)
[2019-09-12] MEDS: ASPIRIN 81 MG PO SCH (10:25)
[2019-09-12] MEDS: LISINOPRIL 20 MG TAB PO SCH (10:25)
[2019-09-12] MEDS: FAMOTIDINE 20 MG TAB PO SCH ×2 (10:25→20:34)
[2019-09-12] MEDS: metFORMIN 500 MG TAB PO SCH ×2 (10:25→20:35)
[2019-09-12] MEDS: CARBIDOPA-LEVODOPA 25-100 MG 1 EACH TAB PO SCH ×4 (10:25→20:35)
[2019-09-12] MEDS: HYDROmorphone 1 MG/ML 1 ML SYRINGE IVP PRN (10:42)
--- NOTE | 2019-09-12 11:16 | XR ---
EXAMINATION TYPE: XR chest 1V portable DATE OF EXAM: 09/12/2019 HISTORY: shortness of breath. REFERENCE: NONE. FINDINGS: There is apparent elevation right hemidiaphragm. The lungs are clear. Pleural spaces are cl ear. Heart size upper limits of normal. IMPRESSION: NO ACTIVE INTRATHORACIC
[2019-09-12 11:48] LABS: Glucose,Whole Blood 193 mg/dL (75-99)
--- NOTE | 2019-09-12 11:51 | US ---
EXAMINATION TYPE: US kidneys/renal and bladder DATE OF EXAM: 09/12/2019 COMPARISON: NONE CLINICAL HISTORY: Possible CJD. Diabetic, possible CKD EXAM MEASUREMENTS: Right Kidney: 12.9 x 6.3 x 5.3 cm Left Kidney: 13.1 x 6.8 x 6.5 cm Post Void Residual Volume: not assessed on non ambulatory inpatient Right Kidney: No hydronephrosis or masses seen Left Kidney: No hydronephrosis or masses seen ; lobular mid cortex is noted Bladder: wnl Bilateral Jets seen: yes There is no evidence for hydronephrosis at this point in time. No nephrolithiasis is seen. No tigre s are identified. The urinary bladder is anechoic. Bilateral ureteral jets are seen. IMPRESSION: NO EVIDENCE OF HYDRONEPHROSIS OR NEPHROLITHIASIS AT THIS TIME.
[2019-09-12] MEDS: IPRATROPIUM-ALBUTEROL 3 ML NEB INHALATION SCH ×4 (11:52→23:39)
[2019-09-12 14:35] LABS: Appearance,Urine Cloudy (Clear); Bacteria,Urine Rare /hpf; Bilirubin,Urine Negative (Negative); Blood,Urine Small (Negative); Color,Urine Yellow; Glucose,Urine (UA) 1+ (Negative); Granular Casts,Urine 4 /lpf (0); Ketones,Urine 1+ (Negative); Leukocyte Esterase,Urine Negative (Negative); Mucus,Urine Rare /hpf; Nitrite,Urine Negative (Negative); PH, Urine 5.5 (5.0-8.0); Protein,Urine 2+ (Negative); RBC,Urine 1 /hpf (0-5); Specific Gravity,Urine 1.023 (1.001-1.035); Urobilinogen,Urine <2.0 mg/dL (<2.0); WBC,Urine 6 /hpf (0-5)
[2019-09-12 14:41] LABS: Hemoglobin A1C 7.7 % (4.0-6.0)
[2019-09-12 17:00] LABS: Glucose,Whole Blood 205 mg/dL (75-99)
[2019-09-12 20:30] LABS: Glucose,Whole Blood 245 mg/dL (75-99)
--- NOTE | 2019-09-12 22:58 | P.PN ---
Progress Note - Text Progress Note Date: 09/12/19 Chief Complaint: Left foot wound History of presenting complaint: This is a 64-year-old patient of Dr. Stanley Murillo. Chronic stable medical conditions include diabetes, GERD, hyperlipidemia, Parkinson's disease, severe peripheral neuropathy and some dysphagia. Patient being followed by Dr. [facility]. For left Charcot foot. Hasn't his son came and discomfort is a significant wound on the plantar aspect. Patient has minimal sensation in that foot. The baseline patient's vision is slightly blurry.. Patient was sent down here to be evaluated by orthopedics. Because of the significant wound rather deep on the plantar aspect, vascular surgery Dr. Caldwell was also consulted. Has had some low-grade fevers and chills. Appetite is fair. Baseline uses a walker. Lives alone. Today-T interval or by Dr. Chadwick. Patient is found to have gas-forming organism wound infection. He talked to the family and disarticulation was carried out Review of systems: Was done for constitutional, cardiovascular, GI, pulmonary. relevant finding as above Active Medications Acetaminophen (Tylenol Tab) 650 mg PO Q6HR PRN PRN Reason: Mild Pain or Fever > 100.5 Last Admin: 09/12/19 05:28 Dose: 650 mg Documented by: Albuterol/Ipratropium (Duoneb 0.5 Mg-3 Mg/3 Ml Soln) 3 ml INHALATION RT-Q4H [facility] Last Admin: 09/12/19 19:17 Dose: 3 ml Documented by: Aspirin (Aspirin) 81 mg PO DAILY [facility] Last Admin: 09/12/19 10:25 Dose: 81 mg Documented by: Atorvastatin Calcium (Lipitor) 10 mg PO DAILY [facility] Last Admin: 09/12/19 10:25 Dose: 10 mg Documented by: Carbidopa/Levodopa (Sinemet 25-100) 1 each PO QID [facility] Last Admin: 09/12/19 20:35 Dose: 1 each Documented by: Famotidine (Pepcid) 20 mg PO BID [facility] Last Admin: 09/12/19 20:34 Dose: 20 mg Documented by: Hydromorphone HCl (Dilaudid) 1 mg IVP Q3HR PRN PRN Reason: Severe Pain Last Admin: 09/12/19 10:42 Dose: 1 mg Documented by: Sodium Chloride (Saline 0.9%) 1,000 mls @ 125 mls/hr IV .Q8H [facility] Last Admin: 09/12/19 17:33 Dose: 125 mls/hr Documented by: Cefepime HCl 2 gm/ Sodium (Chloride) 100 mls @ 200 mls/hr IVPB Q12H [facility] Last Admin: 09/12/19 17:29 Dose: 200 mls/hr Documented by: Clindamycin Phosphate 900 mg/ (Dextrose/Water) 56 mls @ 50 mls/hr IVPB Q8HR [facility] Last Admin: 09/12/19 16:10 Dose: 50 mls/hr Documented by: Insulin Aspart (Novolog) 0 unit SQ ACHS [facility]; Protocol Last Admin: 09/12/19 20:35 Dose: 5 unit Documented by: Insulin Aspart (Novolog Mix 70-30 Vial) 85 unit SQ AC-BID [facility] Last Admin: 09/12/19 17:20 Dose: 40 unit Documented by: Lisinopril (Zestril) 20 mg PO DAILY [facility] Last Admin: 09/12/19 10:25 Dose: 20 mg Documented by: Metformin HCl (Glucophage) 500 mg PO BID [facility] Last Admin: 09/12/19 20:35 Dose: Not Given Documented by: Metoprolol Succinate (Toprol Xl) 200 mg PO DAILY [facility] Last Admin: 09/12/19 10:24 Dose: 200 mg Documented by: Naloxone HCl (Narcan) 0.2 mg IV Q2M PRN PRN Reason: Opioid Reversal Ondansetron HCl (Zofran) 4 mg IVP Q8HR PRN PRN Reason: Nausea And Vomiting Physical examination: VITAL SIGNS: 97.9, 83, 20, 105/64, 96% room air GENERAL: Laying in bed, awake EYES: Pupils equal. Conjunctiva normal. HEENT: External appearance of nose and ears normal, oral cavity grossly normal. NECK: JVD not raised; masses not palpable. HEART: First and second heart sounds are normal; no edema. LUNGS: Respiratory rate normal; decreased breath sounds. ABDOMEN: Soft, nontender, liver spleen not palpable, no masses palpable. PSYCH: Alert and oriented x3; mood and affect normal. NEUROLOGICAL: [Cranial nerves grossly intact; no facial asymmetry, decreased sensation distally, bradykinesia EXTREMITY: Left foot disarticulated INVESTIGATIONS, reviewed in the clinical context: White count 13.8 hemoglobin 11.6 potassium 4.5 bun 25 creatinine 1.31 Potassium 4.3 bun 42 creatinine 1.38 Accu-Cheks 212, 226 Left leg Doppler-negative for DVT Renal ultrasound unremarkable MRI of the foot-multiple disruption or joints. Multiple areas of suspicious for osteomyelitis. Increasing soft tissue air bubbles. Assessment: -Acute gas-forming organism in the left foot which is a Charcot foot leading to disarticulation today. -Diabetic foot ulcer on the plantar aspect left foot -Chronic left Charcot foot -Diabetes mellitus type 2 causing peripheral neuropathy -GERD -Hyperlipidemia -Chronic dysphagia likely from Parkinson's -Idiopathic Parkinson's disease -Suspect chronic kidney disease secondary to diabetic nephropathy Plan: Discussed surgical results with Dr. Chadwick. Continue with antibiotics. Depending on patient's vascular status will need further surgery in a few days. Care discussed with the patient.
--- NOTE | 2019-09-13 00:14 | PN ---
PROGRESS NOTE DATE OF SERVICE: 09/12/2019. REASON FOR FOLLOWUP: Left diabetic foot infection. INTERVAL HISTORY: The patient is currently afebrile. The patient was taken to the OR this morning. Apparently the patient did have significant worsening overnight and the patient is status post disarticulation at the left ankle by vascular surgery. Patient tolerated the surgery. Pain is currently controlled. Denies any chest pain, shortness of breath or cough. No abdominal pain. No diarrhea. PHYSICAL EXAMINATION: Blood pressure 100/61 with a pulse of 87, temperature 98. He is 100% on 3 L nasal cannula. General description is an elderly male lying in bed in no distress. Respiratory system: Unlabored breathing. Clear to auscultation anteriorly. Heart S1, S2. Regular rate and rhythm. Abdomen soft, no tenderness. Left foot is currently dressed up. No obvious drainage on the dressing. 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 Patient is currently covered with Cefepime. Vancomycin was discontinued while waiting for the culture to finalize. Continue supportive care. MMODL / IJN: [id number] /
[2019-09-13] MEDS: CLINDAMYCIN 900 MG in DEXTROSE 5% IN WATER 50 ML IVPB SCH ×6 (01:05→16:18)
[2019-09-13] MEDS: SODIUM CHLORIDE 0.9% 1,000 ML IV SCH ×3 (03:50→17:25)
[2019-09-13] MEDS: IPRATROPIUM-ALBUTEROL 3 ML NEB INHALATION SCH ×7 (04:11→23:18)
[2019-09-13] MEDS: CEFEPIME 2 GM in SODIUM CHLORIDE 0.9% 100 ML IVPB SCH ×2 (06:01→17:17)
[2019-09-13 07:24] LABS: Glucose,Whole Blood 221 mg/dL (75-99)
[2019-09-13] MEDS: CARBIDOPA-LEVODOPA 25-100 MG 1 EACH TAB PO SCH ×4 (07:33→20:39)
[2019-09-13] MEDS: METOPROLOL SUCCINATE (ER) 100 MG TAB.ER.24H PO SCH (07:33)
[2019-09-13] MEDS: ASPIRIN 81 MG PO SCH (07:33)
[2019-09-13] MEDS: ATORVASTATIN 10 MG TAB PO SCH (07:33)
[2019-09-13] MEDS: LISINOPRIL 20 MG TAB PO SCH (07:34)
[2019-09-13] MEDS: INSULN ASP PRT/INSULIN ASPART 100 UNIT/ML 10 ML VIAL SQ SCH ×2 (07:34→17:16)
[2019-09-13] MEDS: FAMOTIDINE 20 MG TAB PO SCH ×2 (07:34→20:39)
[2019-09-13] MEDS: INSULIN ASPART (NovoLOG) 100 UNIT/ML VIAL SQ SCH ×4 (07:35→20:39)
[2019-09-13] MEDS: metFORMIN 500 MG TAB PO SCH ×2 (07:43→20:38)
[2019-09-13 12:04] LABS: Glucose,Whole Blood 256 mg/dL (75-99)
[2019-09-13 17:21] LABS: Glucose,Whole Blood 262 mg/dL (75-99)
--- NOTE | 2019-09-13 20:44 | P.PN ---
Progress Note - Text Progress Note Date: 09/13/19 Chief Complaint: Left foot wound History of presenting complaint: This is a 64-year-old patient of Dr. Stanley Murillo. Chronic stable medical conditions include diabetes, GERD, hyperlipidemia, Parkinson's disease, severe peripheral neuropathy and some dysphagia. Patient being followed by Dr. William from [facility]. For left Charcot foot. Hasn't his son came and discomfort is a significant wound on the plantar aspect. Patient has minimal sensation in that foot. The baseline patient's vision is slightly blurry.. Patient was sent down here to be evaluated by orthopedics. Because of the significant wound rather deep on the plantar aspect, vascular surgery Dr. Caldwell was also consulted. Baseline uses a walker. Lives alone. Patient was taken to the or and disarticulation artery carried out because of gas-forming organism. Today-sitting upon a chair. Pain control. Family the bedside. Starting a diet. Patient is stable. Review of systems: Was done for constitutional, cardiovascular, GI, pulmonary. relevant finding as above Active Medications Acetaminophen (Tylenol Tab) 650 mg PO Q6HR PRN PRN Reason: Mild Pain or Fever > 100.5 Last Admin: 09/12/19 05:28 Dose: 650 mg Documented by: Albuterol/Ipratropium (Duoneb 0.5 Mg-3 Mg/3 Ml Soln) 3 ml INHALATION RT-Q4H [facility] Last Admin: 09/13/19 19:41 Dose: 3 ml Documented by: Aspirin (Aspirin) 81 mg PO DAILY [facility] Last Admin: 09/13/19 07:33 Dose: 81 mg Documented by: Atorvastatin Calcium (Lipitor) 10 mg PO DAILY [facility] Last Admin: 09/13/19 07:33 Dose: 10 mg Documented by: Carbidopa/Levodopa (Sinemet 25-100) 1 each PO QID [facility] Last Admin: 09/13/19 17:16 Dose: 1 each Documented by: Famotidine (Pepcid) 20 mg PO BID [facility] Last Admin: 09/13/19 07:34 Dose: 20 mg Documented by: Hydromorphone HCl (Dilaudid) 1 mg IVP Q3HR PRN PRN Reason: Severe Pain Last Admin: 09/12/19 10:42 Dose: 1 mg Documented by: Sodium Chloride (Saline 0.9%) 1,000 mls @ 125 mls/hr IV .Q8H [facility] Last Admin: 09/13/19 17:25 Dose: 125 mls/hr Documented by: Cefepime HCl 2 gm/ Sodium (Chloride) 100 mls @ 200 mls/hr IVPB Q12H [facility] Last Admin: 09/13/19 17:17 Dose: 200 mls/hr Documented by: Clindamycin Phosphate 900 mg/ (Dextrose/Water) 56 mls @ 50 mls/hr IVPB Q8HR [facility] Last Admin: 09/13/19 16:18 Dose: 50 mls/hr Documented by: Insulin Aspart (Novolog) 0 unit SQ ACHS [facility]; Protocol Last Admin: 09/13/19 17:16 Dose: 6 unit Documented by: Insulin Aspart (Novolog Mix 70-30 Vial) 85 unit SQ AC-BID [facility] Last Admin: 09/13/19 17:16 Dose: 50 unit Documented by: Lisinopril (Zestril) 20 mg PO DAILY [facility] Last Admin: 09/13/19 07:34 Dose: 20 mg Documented by: Metformin HCl (Glucophage) 500 mg PO BID [facility] Last Admin: 09/13/19 20:38 Dose: Not Given Documented by: Metoprolol Succinate (Toprol Xl) 200 mg PO DAILY [facility] Last Admin: 09/13/19 07:33 Dose: 200 mg Documented by: Naloxone HCl (Narcan) 0.2 mg IV Q2M PRN PRN Reason: Opioid Reversal Ondansetron HCl (Zofran) 4 mg IVP Q8HR PRN PRN Reason: Nausea And Vomiting Physical examination: VITAL SIGNS: 97.2, 94, 20, 161/77, 95% room air GENERAL: Sitting up in a recliner, comfortable awake EYES: Pupils equal. Conjunctiva normal. HEENT: External appearance of nose and ears normal, oral cavity grossly normal. NECK: JVD not raised; masses not palpable. HEART: First and second heart sounds are normal; no edema. LUNGS: Respiratory rate normal; decreased breath sounds. ABDOMEN: Soft, nontender, liver spleen not palpable, no masses palpable. PSYCH: Alert and oriented x3; mood and affect normal. NEUROLOGICAL: [Cranial nerves grossly intact; no facial asymmetry, decreased sensation distally, bradykinesia EXTREMITY: Left foot disarticulated, and a dressing INVESTIGATIONS, reviewed in the clinical context: White count 13.8 hemoglobin 11.6 potassium 4.5 bun 25 creatinine 1.31 Potassium 4.3 bun 42 creatinine 1.38 Accu-Cheks 212, 226 Left leg Doppler-negative for DVT Renal ultrasound unremarkable MRI of the foot-multiple disruption or joints. Multiple areas of suspicious for osteomyelitis. Increasing soft tissue air bubbles. Assessment: -Acute gas-forming organism in the left foot which is a Charcot foot leading to disarticulation on September 12. -Diabetic foot ulcer on the plantar aspect left foot -Chronic left Charcot foot -Diabetes mellitus type 2 causing peripheral neuropathy -GERD -Hyperlipidemia -Chronic dysphagia likely from Parkinson's -Idiopathic Parkinson's disease -Suspect chronic kidney disease secondary to diabetic nephropathy Plan: Continue current medication treatment plan. Follow labs in the morning. Antibiotics to continue. Care discussed with the patient.
[2019-09-13 20:47] LABS: Glucose,Whole Blood 264 mg/dL (75-99)
--- NOTE | 2019-09-13 22:55 | PN ---
PROGRESS NOTE DATE OF SERVICE: 09/13/2019 REASON FOR FOLLOWUP: Left diabetic foot infection. INTERVAL HISTORY: The patient is currently afebrile, has been breathing comfortably. The patient denies having any chest pain, no shortness of breath or cough. No pain to the left foot, amputated site. No nausea, vomiting and no diarrhea. PHYSICAL EXAMINATION: Blood pressure 161/77 with a pulse of 94. Temperature 97.2. He is 95% on room air. General description is an elderly male lying in bed in no distress. Respiratory system: Unlabored breathing, clear to auscultation anteriorly. Heart S1, S2. Regular rate and rhythm. ABDOMEN: Soft, no tenderness. Left foot disarticulation site with minimal drainage on the dressing. No foul smelling. LAB: No new labs have been obtained today. Cultures from the OR and initial culture so far negative. DIAGNOSTIC IMPRESSION AND PLAN: Patient with left diabetic foot infection with concern for possible necrotizing fascia. The patient is status post disarticulation with plan for further surgery down the road. Culture so far negative. We will discontinue clindamycin of C difficile colitis. Continue with vancomycin and cefepime and monitor clinical course closely. The family at the bedside. Questions were answered. MMODL / IJN: [id number] /
[2019-09-14] MEDS: SODIUM CHLORIDE 0.9% 1,000 ML IV SCH ×3 (01:15→17:46)
[2019-09-14] MEDS: IPRATROPIUM-ALBUTEROL 3 ML NEB INHALATION SCH ×5 (03:10→20:29)
[2019-09-14 06:29] LABS: HCT 31.8 % (39.0-53.0); HGB 10.3 gm/dL (13.0-17.5); MCH 28.5 pg (25.0-35.0); MCHC 32.3 g/dL (31.0-37.0); MCV 88.3 fL (80.0-100.0); Mean Platelet Volume 7.2; Platelet Count 430 k/uL (150-450); RDW 14.6 % (11.5-15.5); WBC 8.4 k/uL (3.8-10.6)
[2019-09-14] MEDS: CEFEPIME 2 GM in SODIUM CHLORIDE 0.9% 100 ML IVPB SCH (06:34)
[2019-09-14 06:39] LABS: African American GFR (CKD) >90 (>60 ml/min/1.73 sqM); Anion Gap 6 mmol/L; Blood Urea Nitrogen 17 mg/dL (9-20); Calcium 7.7 mg/dL (8.4-10.2); Carbon Dioxide 24 mmol/L (22-30); Chloride 110 mmol/L (98-107); Glucose 202 mg/dL (74-99); Non-African American GFR(CKD) 86 (>60 ml/min/1.73 sqM); Sodium 140 mmol/L (137-145)
[2019-09-14 07:01] LABS: Glucose,Whole Blood 224 mg/dL (75-99)
[2019-09-14] MEDS: FAMOTIDINE 20 MG TAB PO SCH ×2 (08:31→20:42)
[2019-09-14] MEDS: LISINOPRIL 20 MG TAB PO SCH (08:31)
[2019-09-14] MEDS: metFORMIN 500 MG TAB PO SCH ×2 (08:31→20:42)
[2019-09-14] MEDS: ATORVASTATIN 10 MG TAB PO SCH (08:31)
[2019-09-14] MEDS: ASPIRIN 81 MG PO SCH (08:31)
[2019-09-14] MEDS: INSULN ASP PRT/INSULIN ASPART 100 UNIT/ML 10 ML VIAL SQ SCH ×2 (08:32→17:46)
[2019-09-14] MEDS: INSULIN ASPART (NovoLOG) 100 UNIT/ML VIAL SQ SCH ×4 (08:32→20:42)
[2019-09-14] MEDS: METOPROLOL SUCCINATE (ER) 100 MG TAB.ER.24H PO SCH (08:32)
[2019-09-14] MEDS: CARBIDOPA-LEVODOPA 25-100 MG 1 EACH TAB PO SCH ×4 (08:32→20:42)
[2019-09-14] MEDS: ACETAMINOPHEN TAB 325 MG TAB PO PRN (08:40)
[2019-09-14 11:49] LABS: Glucose,Whole Blood 188 mg/dL (75-99)
[2019-09-14 17:08] LABS: Glucose,Whole Blood 163 mg/dL (75-99)
--- NOTE | 2019-09-14 17:56 | PN ---
PROGRESS NOTE DATE OF SERVICE: 09/14/2019 REASON FOR FOLLOWUP: Left diabetic foot infection, status post disarticulation at the ankle joint. INTERVAL HISTORY: The patient is currently afebrile. The patient has been breathing comfortably. The patient denies having any chest pain or any cough. No nausea, vomiting, abdominal pain or pain to the left leg amputation site. PHYSICAL EXAMINATION: Blood pressure 174/92 with a pulse of 98, temperature 98.3. He is 97% on 2 L nasal cannula. General description is an elderly male lying in bed in no distress. RESPIRATORY SYSTEM: Unlabored breathing. Clear to auscultation anteriorly. HEART: S1, S2. Regular rate and rhythm. ABDOMEN: Soft. No tenderness. Left leg amputation site is currently dressed up with some drainage on the dressing. LABS: Hemoglobin is 10.3, white count 8.4, BUN of 17, creatinine 0.93. DIAGNOSTIC IMPRESSION AND PLAN: Patient with left foot infection in this patient who is status post disarticulation at the ankle joint. Culture positive for Streptococcus agalactiae and coagulase-negative Staph, currently covered with vancomycin; to continue. Will switch the cefepime to cefazolin and monitor his clinical course closely. Continue with supportive care. MMODL / IJN: [id number] /
[2019-09-14 20:32] LABS: Glucose,Whole Blood 159 mg/dL (75-99)
--- NOTE | 2019-09-14 21:50 | P.PN ---
Progress Note - Text Progress Note Date: 09/14/19 Chief Complaint: Left foot wound History of presenting complaint: This is a 64-year-old patient of Dr. Stanley Murillo. Chronic stable medical conditions include diabetes, GERD, hyperlipidemia, Parkinson's disease, severe peripheral neuropathy and some dysphagia. Patient being followed by Dr. William from [facility]. For left Charcot foot. Hasn't his son came and discomfort is a significant wound on the plantar aspect. Patient has minimal sensation in that foot. The baseline patient's vision is slightly blurry.. Patient was sent down here to be evaluated by orthopedics. Because of the significant wound rather deep on the plantar aspect, vascular surgery Dr. Caldwell was also consulted. Baseline uses a walker. Lives alone. Patient had disarticulation carried out because of gas-forming organism. Today-no new issues. Comfortable. Tolerate diet. Laying in bed. Review of systems: Was done for constitutional, cardiovascular, GI, pulmonary. relevant finding as above Physical examination: VITAL SIGNS: 98.3, 87, 18, 174/84, 98% on 2 L GENERAL: Sitting up in a recliner, comfortable awake EYES: Pupils equal. Conjunctiva normal. HEENT: External appearance of nose and ears normal, oral cavity grossly normal. NECK: JVD not raised; masses not palpable. HEART: First and second heart sounds are normal; no edema. LUNGS: Respiratory rate normal; decreased breath sounds. ABDOMEN: Soft, nontender, liver spleen not palpable, no masses palpable. PSYCH: Alert and oriented x3; mood and affect normal. NEUROLOGICAL: Cranial nerves grossly intact; no facial asymmetry, decreased s ensation distally, bradykinesia EXTREMITY: Left foot disarticulated, and a dressing INVESTIGATIONS, reviewed in the clinical context: White count 8.4 hemoglobin 10.3 creatinine 0.93 Previous testing White count 13.8 hemoglobin 11.6 potassium 4.5 bun 25 creatinine 1.31 Potassium 4.3 bun 42 creatinine 1.38 Accu-Cheks 212, 226 Left leg Doppler-negative for DVT Renal ultrasound unremarkable MRI of the foot-multiple disruption or joints. Multiple areas of suspicious for osteomyelitis. Increasing soft tissue air bubbles. Assessment: -Acute gas-forming organism in the left foot which is a Charcot foot leading to disarticulation on September 12. -Diabetic foot ulcer on the plantar aspect left foot -Chronic left Charcot foot -Diabetes mellitus type 2 causing peripheral neuropathy -GERD -Hyperlipidemia -Chronic dysphagia likely from Parkinson's -Idiopathic Parkinson's disease -Acute kidney injury, improved Plan: Continue current medications for plan. Discussed with Dr. Raymon Chadwick. He spoke to the patient earlier. Patient for further amputation tomorrow. Continue antibiotics. On IV Ancef.
--- NOTE | 2019-09-14 22:03 | PN ---
PROGRESS NOTE The patient had a left leg disarticulation of the foot for gas-forming organism. The patient had a culture done which showed coagulase-negative staphylococcus and alpha- hemolytic streptococcus. The patient is on IV antibiotic under the care of Infectious Disease. Today we have changed the dressing. No drainage noted. PLAN: The plan is for left below-knee amputation. The risks and complications of bleeding, infection and nonhealing have been discussed. The patient and family agree. MMODL / IJN: [id number] /
[2019-09-15] MEDS: IPRATROPIUM-ALBUTEROL 3 ML NEB INHALATION SCH ×6 (00:57→20:10)
[2019-09-15] MEDS: SODIUM CHLORIDE 0.9% 1,000 ML IV SCH ×3 (04:33→17:36)
[2019-09-15 07:19] LABS: Glucose,Whole Blood 88 mg/dL (75-99)
[2019-09-15] MEDS: METOPROLOL SUCCINATE (ER) 100 MG TAB.ER.24H PO SCH (08:04)
[2019-09-15] MEDS: INSULIN ASPART (NovoLOG) 100 UNIT/ML VIAL SQ SCH ×4 (08:09→22:26)
[2019-09-15] MEDS: CARBIDOPA-LEVODOPA 25-100 MG 1 EACH TAB PO SCH ×4 (08:10→20:51)
[2019-09-15] MEDS: ATORVASTATIN 10 MG TAB PO SCH (08:10)
[2019-09-15] MEDS: ASPIRIN 81 MG PO SCH (08:10)
[2019-09-15] MEDS: FAMOTIDINE 20 MG TAB PO SCH ×2 (08:10→20:51)
[2019-09-15] MEDS: INSULN ASP PRT/INSULIN ASPART 100 UNIT/ML 10 ML VIAL SQ SCH ×2 (08:10→18:09)
[2019-09-15] MEDS: LISINOPRIL 20 MG TAB PO SCH (08:11)
[2019-09-15] MEDS: metFORMIN 500 MG TAB PO SCH ×2 (08:11→20:51)
[2019-09-15] MEDS ORDERED: IV FLUID CONTINUATION 1,000 ML IV ONE (09:37)
[2019-09-15] MEDS ORDERED: fentaNYL (PF) 50 MCG/ML 2 ML AMP ONE (09:37)
[2019-09-15] MEDS ORDERED: NEOSTIGMINE 1 MG/ML 10 ML VIAL ONE (09:37)
[2019-09-15] MEDS ORDERED: PHENYLEPHRINE-0.9% NACL SYG 1 MG/10 ML SYRINGE ONE (09:37)
[2019-09-15] MEDS ORDERED: ROCURONIUM BROMIDE 10 MG/ML 10 ML VIAL IV ONE (09:37)
[2019-09-15] MEDS ORDERED: MIDAZOLAM 2 MG/2 ML VIAL ONE (09:37)
[2019-09-15] MEDS ORDERED: SUCCINYLCHOLINE CHLORIDE 100 MG/5 ML SYR IV ONE (09:37)
[2019-09-15] MEDS ORDERED: PROPOFOL 10 MG/ML 20 ML VIAL IV ONE (09:37)
[2019-09-15] MEDS ORDERED: DEXAMETHASONE SOD PHOSPHATE 10 MG/ML 1 ML VIAL IV ONE (09:37)
[2019-09-15] MEDS ORDERED: GLYCOPYRROLATE 0.2 MG/ML 2 ML VIAL ONE (09:37)
[2019-09-15] MEDS ORDERED: LIDOCAINE 1% INJ 10MG/ML (20 ML MDV) ONE (09:37)
[2019-09-15] MEDS ORDERED: SODIUM CHLORIDE 0.9% 1,000 ML IV ONE (11:20)
[2019-09-15 11:53] LABS: Glucose,Whole Blood 139 mg/dL (75-99)
[2019-09-15] MEDS ORDERED: ONDANSETRON 4 MG/2 ML VIAL IVP ONE (12:04)
[2019-09-15] MEDS: HYDROmorphone 1 MG/ML 1 ML SYRINGE IVP ONE ×2 (12:06→13:40)
[2019-09-15] MEDS ORDERED: HYDROmorphone 1 MG/ML 1 ML SYRINGE IVP ONE ×2 (12:19→12:33)
[2019-09-15] MEDS ORDERED: METOPROLOL TARTRATE 5 MG/5 ML VIAL IVP ONE (13:15)
[2019-09-15] MEDS ORDERED: LABETALOL SYRINGE 5 MG/ML IVP ONE (14:00)
[2019-09-15] MEDS ORDERED: fentaNYL (PF) 50 MCG/ML 2 ML AMP IVP ONE (14:03)
[2019-09-15] MEDS ORDERED: MAGNESIUM HYDROXIDE 2,400 MG/10 ML CUP PO PRN (15:47)
[2019-09-15] MEDS: HYDROcodone/APAP 10-325MG 1 EACH TAB PO PRN (16:09)
[2019-09-15 17:16] LABS: Glucose,Whole Blood 167 mg/dL (75-99)
[2019-09-15] MEDS: HYDROmorphone 1 MG/ML 1 ML SYRINGE IVP PRN ×3 (17:45→23:55)
[2019-09-15 20:49] LABS: Glucose,Whole Blood 128 mg/dL (75-99)
--- NOTE | 2019-09-15 23:44 | PN ---
PROGRESS NOTE DATE OF SERVICE: 09/15/2019 REASON FOR FOLLOWUP: Left diabetic foot infection. INTERVAL HISTORY: The patient is currently afebrile. The patient is status post left [id number] amputation this morning. The patient tolerated the procedure. Denies any chest pain or cough. No nausea, vomiting. No abdominal pain or diarrhea. PHYSICAL EXAMINATION: Blood pressure 167/81 with a pulse of 84, temperature of 98.3. He is 97% on 2 L nasal cannula. General description is an elderly male lying in bed in no distress. RESPIRATORY SYSTEM: Unlabored breathing. Clear to auscultation anteriorly. HEART: S1, S2. Regular rate and rhythm. ABDOMEN: Soft. No tenderness. LABS: No new labs been obtained today. DIAGNOSTIC IMPRESSION AND PLAN: Patient with left diabetic foot infection, polymicrobial, with Staphylococcus simulans and anaerobic Gram-negative bacilli and streptococcus in this patient who is status post left [id number] amputation, and infected part has been removed. He will not need to be on long-term antibiotic therapy. Currently covered with cefazolin and vancomycin; to be continued for another day or two and continue with supportive care. MMODL / IJN: [id number] /
[2019-09-16] MEDS: IPRATROPIUM-ALBUTEROL 3 ML NEB INHALATION SCH ×6 (00:51→21:41)
--- NOTE | 2019-09-16 00:53 | P.PN ---
Progress Note - Text Progress Note Date: 09/15/19 Chief Complaint: Left foot wound History of presenting complaint: This is a 64-year-old patient of Dr. Stanley Murillo. Chronic stable medical conditions include diabetes, GERD, hyperlipidemia, Parkinson's disease, severe peripheral neuropathy and some dysphagia. Patient being followed by Dr. William from [facility]. For left Charcot foot. Hasn't his son came and discomfort is a significant wound on the plantar aspect. Patient has minimal sensation in that foot. The baseline patient's vision is slightly blurry.. Patient was sent down here to be evaluated by orthopedics. Because of the significant wound rather deep on the plantar aspect, vascular surgery Dr. Caldwell was also consulted. Baseline uses a walker. Lives alone. Patient had disarticulation carried out because of gas-forming organism. Taken back to the operating room earlier today. (He had palpitations carried out. Dressing in place. Had postoperative pain. 6 L of pain in the blood pressure was elevated. Review of systems: Was done for constitutional, cardiovascular, GI, pulmonary. relevant finding as above Active Medications Acetaminophen (Tylenol Tab) 650 mg PO Q6HR PRN PRN Reason: Mild Pain or Fever > 100.5 Last Admin: 09/14/19 08:40 Dose: 650 mg Documented by: Hydrocodone Bitart/Acetaminophen ([place] 10) 1 each PO Q6H PRN PRN Reason: Pain Last Admin: 09/15/19 16:09 Dose: 1 each Documented by: Albuterol/Ipratropium (Duoneb 0.5 Mg-3 Mg/3 Ml Soln) 3 ml INHALATION RT-Q4H [facility] Last Admin: 09/16/19 00:51 Dose: 3 ml Documented by: Aspirin (Aspirin) 81 mg PO DAILY [facility] Last Admin: 09/15/19 08:10 Dose: Not Given Documented by: Atorvastatin Calcium (Lipitor) 10 mg PO DAILY [facility] Last Admin: 09/15/19 08:10 Dose: Not Given Documented by: Carbidopa/Levodopa (Sinemet 25-100) 1 each PO QID [facility] Last Admin: 09/15/19 20:51 Dose: 1 each Documented by: Famotidine (Pepcid) 20 mg PO BID [facility] Last Admin: 09/15/19 20:51 Dose: 20 mg Documented by: Hydromorphone HCl (Dilaudid) 1 mg IVP Q3HR PRN PRN Reason: Severe Pain Last Admin: 09/15/19 23:55 Dose: 1 mg Documented by: Sodium Chloride (Saline 0.9%) 1,000 mls @ 125 mls/hr IV .Q8H [facility] Last Admin: 09/15/19 17:36 Dose: 125 mls/hr Documented by: Cefazolin Sodium 2 gm/ Sodium (Chloride) 50 mls @ 100 mls/hr IVPB Q8HR [facility] Last Admin: 09/15/19 23:54 Dose: 100 mls/hr Documented by: Insulin Aspart (Novolog) 0 unit SQ ACHS [facility]; Protocol Last Admin: 09/15/19 22:26 Dose: Not Given Documented by: Insulin Aspart (Novolog Mix 70-30 Vial) 85 unit SQ AC-BID [facility] Last Admin: 09/15/19 18:09 Dose: 85 unit Documented by: Lisinopril (Zestril) 20 mg PO DAILY [facility] Last Admin: 09/15/19 08:11 Dose: Not Given Documented by: Magnesium Hydroxide (Milk Of Magnesia) 1,200 mg PO QID PRN PRN Reason: Indigestion Last Admin: 09/15/19 16:10 Dose: 1,200 mg Documented by: Metformin HCl (Glucophage) 500 mg PO BID [facility] Last Admin: 09/15/19 20:51 Dose: 500 mg Documented by: Metoprolol Succinate (Toprol Xl) 200 mg PO DAILY [facility] Last Admin: 09/15/19 08:04 Dose: 200 mg Documented by: Naloxone HCl (Narcan) 0.2 mg IV Q2M PRN PRN Reason: Opioid Reversal Ondansetron HCl (Zofran) 4 mg IVP Q8HR PRN PRN Reason: Nausea And Vomiting Last Admin: 09/15/19 09:37 Dose: 4 mg Documented by: Physical examination: VITAL SIGNS: 98.3, 93, 18, 167/81, 97% on 2 L GENERAL: Resting in the bed EYES: Pupils equal. Conjunctiva normal. HEENT: External appearance of nose and ears normal, oral cavity grossly normal. NECK: JVD not raised; masses not palpable. HEART: First and second heart sounds are normal; no edema. LUNGS: Respiratory rate normal; decreased breath sounds. ABDOMEN: Soft, nontender, liver spleen not palpable, no masses palpable. PSYCH: Tired but able to answer simple question NEUROLOGICAL: Cranial nerves grossly intact; no facial asymmetry, decreased sensation distally, bradykinesia EXTREMITY: Left below-knee amputation stump and a dressing INVESTIGATIONS, reviewed in the clinical context: White count 8.4 hemoglobin 10.3 creatinine 0.93 Previous testing White count 13.8 hemoglobin 11.6 potassium 4.5 bun 25 creatinine 1.31 Potassium 4.3 bun 42 creatinine 1.38 Accu-Cheks 212, 226 Left leg Doppler-negative for DVT Renal ultrasound unremarkable MRI of the foot-multiple disruption or joints. Multiple areas of suspicious for osteomyelitis. Increasing soft tissue air bubbles. Assessment: -Acute gas-forming organism in the left foot which is a Charcot foot leading to disarticulation on September 12. Followed by left below-knee amputation on September 16 -Diabetic foot ulcer on the plantar aspect left foot -Chronic left Charcot foot -Diabetes mellitus type 2 causing peripheral neuropathy -GERD -Hyperlipidemia -Chronic dysphagia likely from Parkinson's -Idiopathic Parkinson's disease -Acute kidney injury, improved Plan: Patient remains on IV Ancef. Other medication treatment plans to continue. With better pain control his blood pressure should come down. Spoke to the nurse at length.
[2019-09-16] MEDS: SODIUM CHLORIDE 0.9% 1,000 ML IV SCH (03:28)
--- NOTE | 2019-09-16 05:51 | OP ---
OPERATIVE REPORT PREOPERATIVE DIAGNOSIS: Hemolytic streptococcus infection of the left foot causing gas-forming organism. POSTOPERATIVE DIAGNOSIS: OPERATION: Left below-knee amputation. DESCRIPTION OF PROCEDURE: This patient came with gas-forming organism. The patient will be treated in two stages, first stage we treated with disarticulation of the foot and today we brought the patient back for left below-knee amputation. Under general anesthesia, the left leg was prepped and draped for in usual sterile manner. Incision was made about 8 cm below the tibial tuberosity for anterior flap incision, deepened through skin, fat, and fascia until we reached the anterior compartment muscles which were divided and then the posterior flap incision was made deep into skin, fat and fascia. Then the posterior flap incision was longer than the anterior flap incision. After that, we divided the medial compartment muscles and also tibia and fibula were isolated. Using periosteum elevator, we elevated the periosteum from tibia and fibula. Using the electric saw, we divided the tibia and also the fibula. The fibula was divided shorter than the tibia and traction was made with a hook to retract the tibia and fibula and a posterior flap was created. At this point, the tibial vessels were isolated and divided and tied with 2-0 silk and tibial nerve was also divided by traction and tied with 0 silk. The posterior flap was created including the gastrocnemius and soleus muscles. Soleus muscle was also divided and gastrocnemius muscle was preserved. Also the saphenous vein and nerve were also divided and ligated. After that, we removed the specimen and hemostasis was well controlled. The wound was copiously irrigated with hydrogen peroxide and saline. Then the gastrocnemius muscle was approximated by the anterior compartment muscles and then fascia was approximated with 0 Vicryl with interrupted sutures and skin was approximated with 3-0 Prolene with mattress interrupted suture. Pressure dressing applied. The patient tolerated the procedure well. The blood loss was less than 200. The patient tolerated the procedure well and transferred to the recovery room in satisfactory condition. MMODL / IJN: [id number] /
[2019-09-16] MEDS: HYDROmorphone 1 MG/ML 1 ML SYRINGE IVP PRN ×4 (06:25→21:18)
[2019-09-16 07:11] LABS: Glucose,Whole Blood 46 mg/dL (75-99)
[2019-09-16 07:19] LABS: Glucose,Whole Blood 47 mg/dL (75-99)
[2019-09-16] MEDS: INSULIN ASPART (NovoLOG) 100 UNIT/ML VIAL SQ SCH ×4 (07:33→21:19)
[2019-09-16] MEDS: INSULN ASP PRT/INSULIN ASPART 100 UNIT/ML 10 ML VIAL SQ SCH ×3 (07:42→18:26)
[2019-09-16 07:56] LABS: Glucose,Whole Blood 72 mg/dL (75-99)
[2019-09-16] MEDS: metFORMIN 500 MG TAB PO SCH ×2 (07:59→21:18)
[2019-09-16] MEDS: ASPIRIN 81 MG PO SCH (07:59)
[2019-09-16] MEDS: ATORVASTATIN 10 MG TAB PO SCH (07:59)
[2019-09-16] MEDS: METOPROLOL SUCCINATE (ER) 100 MG TAB.ER.24H PO SCH (08:00)
[2019-09-16] MEDS: FAMOTIDINE 20 MG TAB PO SCH ×2 (08:00→21:18)
[2019-09-16] MEDS: CARBIDOPA-LEVODOPA 25-100 MG 1 EACH TAB PO SCH ×3 (08:01→21:18)
[2019-09-16] MEDS: LISINOPRIL 20 MG TAB PO SCH (08:01)
--- NOTE | 2019-09-16 09:44 | P.ARTDOP ---
Arterial Doppler LOWER EXTREMITY ARTERIAL DOPPLER: DATE OF SERVICE: 09/11/2019 Reason for study: Diabetic foot infection with ulcer left foot. Doppler waveforms: Multiphasic throughout on the right. Atypical throughout on the left.. Pulse volume recording: Normal configuration bilaterally. Pressure gradients: Only at the toe level. Ankle-brachial indices: Greater than 1 bilaterally. Toe pressures: 84 on the right, 73 on the left Impression: Normal study proximally. Decreased toe pressures probably related to vasospastic phenomenon. Distal diabetic type vascular disease less likely. Toe pressures should be adequate for healing..
[2019-09-16 11:47] LABS: Glucose,Whole Blood 122 mg/dL (75-99)
[2019-09-16] MEDS ORDERED: LACTULOSE 20 GM/30 ML CUP PO ONE (12:23)
[2019-09-16] MEDS: amLODIPine 5 MG TAB PO SCH (13:44)
[2019-09-16 17:25] LABS: Glucose,Whole Blood 142 mg/dL (75-99)
[2019-09-16 20:44] LABS: Glucose,Whole Blood 172 mg/dL (75-99)
[2019-09-16] MEDS: LISINOPRIL-HCTZ 10-12.5 MG 1 EACH TAB PO SCH (21:18)
--- NOTE | 2019-09-16 23:17 | PN ---
PROGRESS NOTE DATE OF SERVICE: 09/16/2019 REASON FOR FOLLOWUP: Left diabetic foot infection. INTERVAL HISTORY: The patient is currently afebrile, has been breathing comfortably. Pain is currently controlled. Denies having any chest pain. Some shortness of breath. Occasional cough. No nausea or vomiting. No abdominal pain. No diarrhea. PHYSICAL EXAMINATION: Blood pressure 100/99, pulse of 80, temperature 99, he is 95% on 2 L nasal cannula. General description is an elderly male lying in bed in no distress. Respiratory system: Unlabored breathing, clear to auscultation anteriorly. Heart S1, S2. Regular rate and rhythm. Abdomen soft, no tenderness. Left BKA stump is currently dressed. No obvious drainage on the dressing. LABS: Wound culture multiple pathogens. DIAGNOSTIC IMPRESSION AND PLAN: Patient with left diabetic foot infection in this patient who is status post disorder followed by left [id number] amputation as infected part has been removed and the patient was not bacteremic. He will not need to be on long-term antibiotic therapy. This has been discussed in detail with the patient. Cefazolin will be continued. Monitor clinical course closely. MMODL / IJN: [id number] /
--- NOTE | 2019-09-17 00:39 | P.PN ---
Progress Note - Text Progress Note Date: 09/16/19 Chief Complaint: Left foot wound Interval history: This is a 64-year-old patient of Dr. Stanley Murillo. Chronic stable medical conditions include diabetes, GERD, hyperlipidemia, Parkinson's disease, severe peripheral neuropathy and some dysphagia. Patient being followed by Dr. [facility]. For left Charcot foot. Hasn't his son came and discomfort is a significant wound on the plantar aspect. Patient has minimal sensation in that foot. The baseline patient's vision is slightly blurry.. Patient was sent down here to be evaluated by orthopedics. Because of the significant wound rather deep on the plantar aspect, vascular surgery Dr. Caldwell was also consulted. Baseline uses a walker. Lives alone. Patient had disarticulation carried out because of gas-forming organism. On September 15 left below-knee amputation was carried out. Today-pain present. Blood pressures running high. Amlodipine added. Getting IV antibiotics. Did tolerate some diet. Family present. Review of systems: Was done for constitutional, cardiovascular, GI, pulmonary. relevant finding as above Active Medications Acetaminophen (Tylenol Tab) 650 mg PO Q6HR PRN PRN Reason: Mild Pain or Fever > 100.5 Last Admin: 09/14/19 08:40 Dose: 650 mg Documented by: Hydrocodone Bitart/Acetaminophen ([place] 10) 1 each PO Q6H PRN PRN Reason: Pain Last Admin: 09/15/19 16:09 Dose: 1 each Documented by: Albuterol/Ipratropium (Duoneb 0.5 Mg-3 Mg/3 Ml Soln) 3 ml INHALATION RT-Q4H [facility] Last Admin: 09/16/19 21:41 Dose: 3 ml Documented by: Amlodipine Besylate (Norvasc) [address] [facility] Last Admin: 09/16/19 13:44 Dose: 5 mg Documented by: Aspirin (Aspirin) [address] [facility] Last Admin: 09/16/19 07:59 Dose: 81 mg Documented by: Atorvastatin Calcium (Lipitor) [address] [facility] Last Admin: 09/16/19 07:59 Dose: 10 mg Documented by: Carbidopa/Levodopa (Sinemet 25-100) [address] [facility] Last Admin: 09/16/19 21:18 Dose: 1 each Documented by: Famotidine (Pepcid) [address] [facility] Last Admin: 09/16/19 21:18 Dose: 20 mg Documented by: Lisinopril/HCTZ (Zestoretic 10-12.5) [address] [facility] Last Admin: 09/16/19 21:18 Dose: 1 each Documented by: Hydromorphone HCl (Dilaudid) 1 mg IVP Q3HR PRN PRN Reason: Severe Pain Last Admin: 09/16/19 21:18 Dose: 1 mg Documented by: Cefazolin Sodium 2 gm/ Sodium (Chloride) 50 mls @ 100 mls/hr IVPB Q8HR [facility] Last Admin: 09/16/19 16:21 Dose: 100 mls/hr Documented by: Insulin Aspart (Novolog) [address] [facility]; Protocol Last Admin: 09/16/19 21:19 Dose: 2 unit Documented by: Insulin Aspart (Novolog Mix 70-30 Vial) 60 unit SQ AC-BID [facility] Last Admin: 09/16/19 18:26 Dose: Not Given Documented by: Insulin Aspart (Novolog Mix 70-30 Vial) 20 unit SQ AC-LUNCH [facility] Last Admin: 09/16/19 13:44 Dose: 20 unit Documented by: Magnesium Hydroxide (Milk Of Magnesia) 1,200 mg PO QID PRN PRN Reason: Indigestion Last Admin: 09/15/19 16:10 Dose: 1,200 mg Documented by: Metformin HCl (Glucophage) [address] [facility] Last Admin: 09/16/19 21:18 Dose: 500 mg Documented by: Metoprolol Succinate (Toprol Xl) [address] [facility] Last Admin: 09/16/19 08:00 Dose: 200 mg Documented by: Naloxone HCl (Narcan) 0.2 mg IV Q2M PRN PRN Reason: Opioid Reversal Ondansetron HCl (Zofran) 4 mg IVP Q8HR PRN PRN Reason: Nausea And Vomiting Last Admin: 09/15/19 09:37 Dose: 4 mg Documented by: Physical examination: VITAL SIGNS: 97.8, 92, 22, 212/110, 97% on 2 L GENERAL: Propped up in bed, EYES: Pupils equal. Conjunctiva normal. HEENT: External appearance of nose and ears normal, oral cavity grossly normal. NECK: JVD not raised; masses not palpable. HEART: First and second heart sounds are normal; no edema. LUNGS: Respiratory rate normal; decreased breath sounds. ABDOMEN: Soft, nontender, liver spleen not palpable, no masses palpable. PSYCH: Tired but able to answer simple question NEUROLOGICAL: Cranial nerves grossly intact; no facial asymmetry, decreased sensation distally, bradykinesia EXTREMITY: Left below-knee amputation stump and a dressing INVESTIGATIONS, reviewed in the clinical context: Accu-Cheks 46, 47, 72 Previous testing White count 13.8 hemoglobin 11.6 potassium 4.5 bun 25 creatinine 1.31 Potassium 4.3 bun 42 creatinine 1.38 Accu-Cheks 212, 226 Left leg Doppler-negative for DVT Renal ultrasound unremarkable MRI of the foot-multiple disruption or joints. Multiple areas of suspicious for osteomyelitis. Increasing soft tissue air bubbles. Assessment: -Acute gas-forming organism in the left foot which is a Charcot foot leading to disarticulation on September 12. Followed by left below-knee amputation on September 16 -Diabetic foot ulcer on the plantar aspect left foot -Chronic left Charcot foot -Diabetes mellitus type 2 causing peripheral neuropathy, uncontrolled with hypo- glycemia -GERD -Hyperlipidemia -Essential hypertension with urgency -Chronic dysphagia likely from Parkinson's -Idiopathic Parkinson's disease -Acute kidney injury, improved Plan: Patient remains on IV Ancef. Patient does of Novolin 70/30 is being adjusted. Did discuss with the patient. Also discussed with Dr. Chadwick. We need a short course of antibiotics. Also consult Dr. Garland from [facility] for possible [facility] rehab. Possible discharge tomorrow. If okay with Dr. Chadwick. Lisinopril changed to 10/12.5 twice a day. Amlodipine added.
[2019-09-17] MEDS: IPRATROPIUM-ALBUTEROL 3 ML NEB INHALATION SCH ×5 (01:34→19:23)
[2019-09-17] MEDS ORDERED: IPRATROPIUM-ALBUTEROL 3 ML NEB INHALATION PRN (01:37)
[2019-09-17] MEDS: HYDROmorphone 1 MG/ML 1 ML SYRINGE IVP PRN ×5 (01:40→23:57)
[2019-09-17] MEDS: CARBIDOPA-LEVODOPA 25-100 MG 1 EACH TAB PO SCH ×5 (07:03→23:55)
[2019-09-17 07:14] LABS: Glucose,Whole Blood 156 mg/dL (75-99)
[2019-09-17] MEDS ORDERED: LACTULOSE 20 GM/30 ML CUP PO ONE (07:25)
--- NOTE | 2019-09-17 08:03 | P.CONS ---
History of Present Illness - Chief Complaint Walking difficulty due to left BKA - History of Present Illness I had the opportunity to see patient for inpatient rehab consultation with regard to walking difficulty. He was admitted to [facility] September 11 with left Charcot foot and wound. Seen in consultation by Drs. William and Javi. Eventually underwent left BKA 121. PT and OT prescribed but on hold yesterday due to BP. Seen medically by Dr. Douglas. Previous functional history as elicited from patient: 54-year-old right-handed white male who is lives in a first-floor apartment alone. His boys do the cooking and laundry. Patient retired, and so security. Describes independent with driving and standing shower previously. Dr. Murillo is PMD. Denies tobacco or alcohol. Family history both parents with cancer. Review of Systems Review of systems: ENT: Denies sneezes or discharge. Eyes: Denies discharge or photophobia. Cardiac: Denies chest pain or palpitation. Pulmonary: Denies cough or shortness of breath. Gastrointestinal: Denies nausea, emesis, constipation, diarrhea. Genitourinary: Denies discharge or frequency. Musculoskeletal: Denies muscle or bone aches. Neurologic: Denies motor or sensory change. Unsteadiness of gait due to BKA. Endocrine: Denies shakes or sweats. Oncology: Denies cancers. Dermatologic: Denies rash, itching, pruritus. ALLERGY/immunology: Denies sneezes, rashes. Past Medical History Past Medical History: Asthma, Diabetes Mellitus, GERD/Reflux, Hearing Disorder / Deafness, Hyperlipidemia, Hypertension, Myocardial Infarction (NE), Neurologic Disorder, Osteoarthritis (OA), Pneumonia, Sleep Apnea/CPAP/BIPAP Additional Past Medical History / Comment(s): parkinsons, neuropathy, Charcot's disease, PT STATES WAS TOLD HAD SILENT NE IN LOWER HALF OF HEART. CONSTANT SINUS PROBLEMS-RUNNY NOSE-CLEAR- PHLEGM IN THROAT-. HARD TO SWALLOW FOOD AT TIMES-TRIES TO DRINK A LOT OF WATER WITH FOOD- HAS HAD UGI- WAS OK-CAUSES PRESSURE IN CHEST AREA WHEN HAS TO EAT FOOD LIKE BREADS. SOB ON EXERTION-TIRES EASILY. WAS TOLD PROBABLY HAS SLEEP APNEA BUT NEVER TESTED. DIVERTICULOSIS. CATARACT LEFT EYE Last Myocardial Infarction Date:: UNKNOWN History of Any Multi-Drug Resistant Organisms: MRSA Year Discovered:: 11/2013 MDRO Source:: BACK Past Surgical History: Cholecystectomy, Heart Catheterization, Orthopedic Surgery Additional Past Surgical History / Comment(s): LT SHOULDER SURGERY- 4 PINS IN- INJURY @ WORK. LIPOMA OFF AREA BELOW RT BREAST & RT UPPER THIGH Past Anesthesia/Blood Transfusion Reactions: No Reported Reaction Past Psychological History: No Psychological Hx Reported Smoking Status: Never smoker Past Alcohol Use History: Rare Past Drug Use History: None Reported - Past Family History Father Family Medical History: Cancer, CVA/TIA, Myocardial Infarction (NE) Additional Family Medical History / Comment(s): CA-VOICE BOX Mother Family Medical History: Cancer Additional Family Medical History / Comment(s): COLON CA Medications and Allergies Home Medications Medication Instructions Recorded Confirmed Type Insulin NPH Hum/Reg Insulin Hm 85 units SQ BID 03/04/14 09/11/19 History [NovoLIN 70-30 100 UNIT/ML VIAL] Aspirin 81 mg PO DAILY 09/11/19 09/11/19 History Carbidopa-Levodopa 25-100 mg 1 each PO QID 09/11/19 09/11/19 History [Sinemet 25-100] Lisinopril 20 mg PO BID 09/11/19 09/11/19 History Metoprolol Succinate [Toprol XL] 200 mg PO DAILY 09/11/19 09/11/19 History Simvastatin 40 mg PO DAILY 09/11/19 09/11/19 History metFORMIN HCL 1,000 mg PO BID 09/11/19 09/11/19 History Allergies Allergy/AdvReac Type Severity Reaction Status Date / Time Penicillins Allergy Rash/Hives Verified 09/11/19 08:21 Physical Exam Vitals: Vital Signs Temp Pulse Pulse Resp BP Pulse Ox 09/17/19 02:03 98.6 F 105 H 18 200/107 97 09/17/19 01:47 99 09/17/19 01:34 99 09/16/19 21:55 88 09/16/19 21:41 88 09/16/19 19:52 99.0 F 101 H 18 200/99 95 09/16/19 19:33 92 16 09/16/19 16:51 82 09/16/19 16:41 88 09/16/19 16:26 98 F 94 12 187/90 97 09/16/19 16:00 94 18 09/16/19 13:38 84 09/16/19 13:26 86 09/16/19 11:04 187/111 09/16/19 11:03 187/111 09/16/19 10:15 24 199/91 09/16/19 09:21 84 09/16/19 09:08 86 09/16/19 08:45 92 22 Intake and Output 09/16/19 09/17/19 09/17/19 22:59 06:59 14:59 Output Total 1200 1500 Balance -1200 -1500 Output: Urine 1200 1500 Other: Voiding Method Indwelling Catheter Skin: Good color, texture, turgor. General: Obese build and comfortable appearance. Head: Normocephalic, atraumatic. Eyes: Symmetric. Pupils equal round. Ears: Symmetric. Hearing diminished bilaterally. Mouth: Clear. Neck: Supple. Carotid without bruit. Cardiac: Regular rate and rhythm. Lungs: Clear anteriorly and posteriorly. Abdomen: Soft active nontender. Extremities: Normal tone. Left BKA clean and dressed. Neurological: Mental status: Alert, cooperative, pleasant. Cranial nerves: Symmetric facial tone and trapezius. Motor: Normal strength and isolation all 4 limbs. Sensation: Intact throughout. DTRs: Symmetric and equal throughout. Mobility: Physical assistance for transfers due to BKA. Results CBC & Chem 7: 09/14/19 06:07 09/14/19 06:07 Labs: Abnormal Lab Results - Last 24 Hours (Table) 09/16/19 09/16/19 09/16/19 Range/Units 11:27 17:14 20:33 POC Glucose (mg/dL) 122 H 142 H 172 H (75-99) mg/dL 09/17/19 Range/Units 07:02 POC Glucose (mg/dL) 156 H (75-99) mg/dL Microbiology - Last 24 Hours (Table) 09/11/19 18:24 Blood Culture - Preliminary Blood No Growth after 120 hours 09/11/19 18:15 Blood Culture - Preliminary Blood No Growth after 120 hours 09/12/19 07:05 Gram Stain - Final Foot - Left Wound Culture - Final Staphylococcus simulans Alpha Hemolytic Streptococcus 09/12/19 07:05 Gram Stain - Final Foot - Left Wound Culture - Final Staphylococcus simulans Alpha Hemolytic Streptococcus 09/12/19 07:05 Gram Stain - Final Foot - Left Wound Culture - Final Staphylococcus simulans Alpha Hemolytic Streptococcus Assessment and Plan (1) Type 2 diabetes mellitus with diabetic foot ulcer Current Visit: Yes Status: Acute Code(s): E11.621 - TYPE 2 DIABETES MELLITUS WITH FOOT ULCER; L97.509 - NON-PRESSURE CHRONIC ULCER OTH PRT UNSP FOOT W UNSP SEVERITY SNOMED Code(s): 741562422 Plan: Impression: 1. Walk difficulty. 2. Left Charcot foot with diabetes and foot ulcer. 3. New left BKA. 4. Morbidly obese. 5. Hypertension. 6. Osteoarthritis. 7. Sleep apnea. 8. Hard of hearing. 9. Asthma. 10. Coronary artery disease with history of NE. 11. Dyslipidemia. 12. Deafness. Comments and plan: At this time PT and OT are prescribed. We'll follow therapies with yourself for possible need and benefit of inpatient rehab. This possibility was discussed with patient and he seems agreeable if necessary.
[2019-09-17] MEDS: FAMOTIDINE 20 MG TAB PO SCH ×2 (08:11→23:55)
[2019-09-17] MEDS: METOPROLOL SUCCINATE (ER) 100 MG TAB.ER.24H PO SCH (08:11)
[2019-09-17] MEDS: metFORMIN 500 MG TAB PO SCH ×2 (08:11→23:55)
[2019-09-17] MEDS: ASPIRIN 81 MG PO SCH (08:11)
[2019-09-17] MEDS: amLODIPine 5 MG TAB PO SCH (08:11)
[2019-09-17] MEDS: ATORVASTATIN 10 MG TAB PO SCH (08:11)
[2019-09-17] MEDS: LISINOPRIL-HCTZ 10-12.5 MG 1 EACH TAB PO SCH ×2 (08:11→23:55)
[2019-09-17] MEDS: HYDROcodone/APAP 10-325MG 1 EACH TAB PO PRN (08:12)
[2019-09-17] MEDS: INSULIN ASPART (NovoLOG) 100 UNIT/ML VIAL SQ SCH ×4 (08:13→21:29)
[2019-09-17] MEDS: INSULN ASP PRT/INSULIN ASPART 100 UNIT/ML 10 ML VIAL SQ SCH ×3 (08:13→18:21)
[2019-09-17 11:44] LABS: Glucose,Whole Blood 61 mg/dL (75-99)
[2019-09-17 12:01] LABS: Glucose,Whole Blood 61 mg/dL (75-99)
[2019-09-17 12:20] LABS: Glucose,Whole Blood 74 mg/dL (75-99)
--- NOTE | 2019-09-17 16:12 | PN ---
PROGRESS NOTE Mr. Louise had a left BK amputation done. The patient's dressing was changed today. Stump site is healing well. The patient is on IV antibiotic under the care of Infectious Disease. We have changed the dressing today. The patient goes to a [facility] and will follow up in my office in 2 weeks. He was advised to change the dressing every 48 hours. MMODL / JESSICAN: [id number] /
[2019-09-17 16:54] LABS: Glucose,Whole Blood 67 mg/dL (75-99)
[2019-09-17 17:17] LABS: Glucose,Whole Blood 78 mg/dL (75-99)
--- NOTE | 2019-09-17 18:39 | PN ---
PROGRESS NOTE DATE OF SERVICE: 09/17/2019 REASON FOR FOLLOWUP: Left diabetic foot infection. INTERVAL HISTORY: The patient is currently afebrile. The patient has been breathing comfortably. The patient denies having any chest pain or shortness of breath or cough. No nausea, vomiting or any worsening pain to the left BKA stump area. PHYSICAL EXAMINATION: Blood pressure 166/78 with a pulse of 94, temperature 97.6. He is 92% on room air. General description is an elderly male lying in bed in no distress. RESPIRATORY SYSTEM: Unlabored breathing. Clear to auscultation anteriorly. HEART: S1, S2. Regular rate and rhythm. ABDOMEN: Soft. No tenderness. Left BK stump is currently dressed. No drainage on the dressing. LABS: White count normal at 8.4. DIAGNOSTIC IMPRESSION AND PLAN: Patient with left diabetic foot infection in this patient who is status post left foot disarticulation followed by left BKA and had the infected part removed. The patient is not bacteremic and will not need to be on long-term antibiotic therapy. May consider short course of IV cefazolin 2 grams q.8 hours for about a week. This was discussed in detail with the admitting physician who was working on discharge. MMODL / IJN: [id number] /
[2019-09-17 20:27] LABS: Glucose,Whole Blood 105 mg/dL (75-99)
[2019-09-18 06:20] LABS: Glucose,Whole Blood 118 mg/dL (75-99)
[2019-09-18 07:30] LABS: Glucose,Whole Blood 122 mg/dL (75-99)
[2019-09-18] MEDS: INSULN ASP PRT/INSULIN ASPART 100 UNIT/ML 10 ML VIAL SQ SCH (07:30)
[2019-09-18] MEDS: INSULIN ASPART (NovoLOG) 100 UNIT/ML VIAL SQ SCH ×2 (07:30→12:36)
[2019-09-18] MEDS: HYDROcodone/APAP 10-325MG 1 EACH TAB PO PRN ×2 (08:00→14:09)
[2019-09-18] MEDS: METOPROLOL SUCCINATE (ER) 100 MG TAB.ER.24H PO SCH (08:01)
[2019-09-18] MEDS: metFORMIN 500 MG TAB PO SCH (08:01)
[2019-09-18] MEDS: CARBIDOPA-LEVODOPA 25-100 MG 1 EACH TAB PO SCH ×2 (08:01→12:36)
[2019-09-18] MEDS: FAMOTIDINE 20 MG TAB PO SCH (08:01)
[2019-09-18] MEDS: amLODIPine 5 MG TAB PO SCH (08:01)
[2019-09-18] MEDS: ATORVASTATIN 10 MG TAB PO SCH (08:01)
[2019-09-18] MEDS: LISINOPRIL-HCTZ 10-12.5 MG 1 EACH TAB PO SCH (08:01)
[2019-09-18] MEDS: ASPIRIN 81 MG PO SCH (08:01)
[2019-09-18 08:21] VITALS: BP 177/86; RESP 21; TEMP 97.8
[2019-09-18] MEDS: IPRATROPIUM-ALBUTEROL 3 ML NEB INHALATION SCH ×2 (09:09→12:24)
--- NOTE | 2019-09-18 11:31 | P.PN ---
Progress Note - Text Progress Note Date: 09/17/19 Chief Complaint: Left foot wound Interval history: This is a 64-year-old patient of Dr. Stanley Murillo. Chronic stable medical conditions include diabetes, GERD, hyperlipidemia, Parkinson's disease, severe peripheral neuropathy and some dysphagia. Patient being followed by Dr. [facility]. For left Charcot foot. Hasn't his son came and discomfort is a significant wound on the plantar aspect. Patient has minimal sensation in that foot. The baseline patient's vision is slightly blurry.. Patient was sent down here to be evaluated by orthopedics. Because of the significant wound rather deep on the plantar aspect, vascular surgery Dr. Caldwell was also consulted. Baseline uses a walker. Lives alone. Patient had disarticulation carried out because of gas-forming organism. On September 15 left below-knee amputation was carried out. Today-. Pain better controlled. Dressing change every Dr. Caldwell. No new issues. Feeling better. Review of systems: Was done for constitutional, cardiovascular, GI, pulmonary. relevant finding as above Active Medications Acetaminophen (Tylenol Tab) 650 mg PO Q6HR PRN PRN Reason: Mild Pain or Fever > 100.5 Last Admin: 09/14/19 08:40 Dose: 650 mg Documented by: Hydrocodone Bitart/Acetaminophen ([place] 10) 1 each PO Q6H PRN PRN Reason: Pain Last Admin: 09/18/19 08:00 Dose: 1 each Documented by: Albuterol/Ipratropium (Duoneb 0.5 Mg-3 Mg/3 Ml Soln) 3 ml INHALATION RT-QID PRN PRN Reason: Shortness Of Breath Or Wheezing Last Admin: 09/18/19 00:28 Dose: 3 ml Documented by: Albuterol/Ipratropium (Duoneb 0.5 Mg-3 Mg/3 Ml Soln) 3 ml INHALATION RT-QID LANE Last Admin: 09/18/19 09:09 Dose: 3 ml Documented by: Amlodipine Besylate (Norvasc) 5 mg PO DAILY [facility] Last Admin: 09/18/19 08:01 Dose: 5 mg Documented by: Aspirin (Aspirin) 81 mg PO DAILY [facility] Last Admin: 09/18/19 08:01 Dose: 81 mg Documented by: Atorvastatin Calcium (Lipitor) 10 mg PO DAILY [facility] Last Admin: 09/18/19 08:01 Dose: 10 mg Documented by: Carbidopa/Levodopa (Sinemet 25-100) 1 each PO QID [facility] Last Admin: 09/18/19 08:01 Dose: 1 each Documented by: Famotidine (Pepcid) 20 mg PO BID [facility] Last Admin: 09/18/19 08:01 Dose: 20 mg Documented by: Lisinopril/HCTZ (Zestoretic 10-12.5) 1 each PO BID [facility] Last Admin: 09/18/19 08:01 Dose: 1 each Documented by: Hydromorphone HCl (Dilaudid) 1 mg IVP Q3HR PRN PRN Reason: Severe Pain Last Admin: 09/17/19 23:57 Dose: 1 mg Documented by: Cefazolin Sodium 2 gm/ Sodium (Chloride) 50 mls @ 100 mls/hr IVPB Q8HR [facility] Last Admin: 09/18/19 08:00 Dose: 100 mls/hr Documented by: Insulin Aspart (Novolog) 0 unit SQ ACHS [facility]; Protocol Last Admin: 09/18/19 07:30 Dose: Not Given Documented by: Insulin Aspart (Novolog Mix 70-30 Vial) 60 unit SQ AC-BID [facility] Last Admin: 09/18/19 07:30 Dose: Not Given Documented by: Insulin Aspart (Novolog Mix 70-30 Vial) 20 unit SQ AC-LUNCH [facility] Last Admin: 09/17/19 13:11 Dose: Not Given Documented by: Magnesium Hydroxide (Milk Of Magnesia) 1,200 mg PO QID PRN PRN Reason: Indigestion Last Admin: 09/15/19 16:10 Dose: 1,200 mg Documented by: Metformin HCl (Glucophage) 500 mg PO BID [facility] Last Admin: 09/18/19 08:01 Dose: 500 mg Documented by: Metoprolol Succinate (Toprol Xl) 200 mg PO DAILY [facility] Last Admin: 09/18/19 08:01 Dose: 200 mg Documented by: Naloxone HCl (Narcan) 0.2 mg IV Q2M PRN PRN Reason: Opioid Reversal Ondansetron HCl (Zofran) 4 mg IVP Q8HR PRN PRN Reason: Nausea And Vomiting Last Admin: 09/15/19 09:37 Dose: 4 mg Documented by: Physical examination: VITAL SIGNS: 98.5, 84, 16, 134/64, 94% on 2 L GENERAL: Propped up in bed,, comfortable EYES: Pupils equal. Conjunctiva normal. HEENT: External appearance of nose and ears normal, oral cavity grossly normal. NECK: JVD not raised; masses not palpable. HEART: First and second heart sounds are normal; no edema. LUNGS: Respiratory rate normal; decreased breath sounds. ABDOMEN: Soft, nontender, liver spleen not palpable, no masses palpable. PSYCH: Tired but able to answer simple question NEUROLOGICAL: Cranial nerves grossly intact; no facial asymmetry, decreased sensation distally, bradykinesia EXTREMITY: Left below-knee amputation stump and a dressing INVESTIGATIONS, reviewed in the clinical context: Accu-Cheks 61, 61, 74, 67 Previous testing White count 13.8 hemoglobin 11.6 potassium 4.5 bun 25 creatinine 1.31 Potassium 4.3 bun 42 creatinine 1.38 Accu-Cheks 212, 226 Left leg Doppler-negative for DVT Renal ultrasound unremarkable MRI of the foot-multiple disruption or joints. Multiple areas of suspicious for osteomyelitis. Increasing soft tissue air bubbles. Assessment: -Acute gas-forming organism in the left foot which is a Charcot foot leading to disarticulation on September 12. Followed by left below-knee amputation on September 16 -Diabetic foot ulcer on the plantar aspect left foot -Chronic left Charcot foot -Diabetes mellitus type 2 causing peripheral neuropathy, uncontrolled with hypo- glycemia, persisting slow to respond -GERD -Hyperlipidemia -Essential hypertension with urgency -Chronic dysphagia likely from Parkinson's -Idiopathic Parkinson's disease -Acute kidney injury, improved Plan: Continue with IV Ancef. PICC line be placed. We'll cut back the dose of insulin. Discussed with the patient. Discussed with social worker aide. Pending authorization. Discussed with Dr. Chadwick from vascular and Dr. Sanabria from ID. Total time spent today was about 40 minutes with over 25 minutes of discussion.
[2019-09-18 11:49] LABS: Glucose,Whole Blood 189 mg/dL (75-99)
--- NOTE | 2019-09-18 12:24 | P.DS ---
Providers Date of admission: 09/11/19 02:03 Expected date of discharge: 09/18/19 Attending physician: Julio Douglas Consults: 09/11/19 08:23 Consult Physician Routine Consulting Provider: Mohit Caldwell Consult Reason/Comments: Left foot ulcer Do you want consulting provider notified?: Yes 09/11/19 14:39 Consult Physician Routine Consulting Provider: Thomas Valladares Consult Reason/Comments: wound left foot Do you want consulting provider notified?: Yes 09/17/19 00:33 Consult Physician Routine Consulting Provider: Tomy Baxter Consult Reason/Comments: [facility]-rehab Do you want consulting provider notified?: Yes Primary care physician: [facility] Course: Chief Complaint: Left foot wound Interval history: This is a 64-year-old patient of Dr. Stanley Murillo. Chronic stable medical conditions include diabetes, GERD, hyperlipidemia, Parkinson's disease, severe peripheral neuropathy and some dysphagia. Patient being followed [facility] Dr[facility]. For left Charcot foot. Hasn't his son came and discomfort is a significant wound on the plantar aspect. Patient has minimal sensation in that foot. The baseline patient's vision is slightly blurry.. Patient was sent down here to be evaluated by orthopedics. Because of the significant wound rather deep on the plantar aspect, vascular surgery Dr. Caldwell was also consulted. Baseline uses a walker. Lives alone. Patient had disarticulation carried out because of gas-forming organism. On September 15 left below-knee amputation was carried out. Today-. Decreased appetite. Has sugars running a bit low. Dose of insulin adjusted. Pain controlled. Discussed with social media designer. Patient to go to rehab today. Discussed in detail with the patient. Discussion and discharge planning more than 35 minutes Consultations: Dr. Raymon Chadwick from vascular surgery Dr. Raymon valladares from ID Dr. William from [facility] Physical examination: VITAL SIGNS: 97.8, 96, 21, 144/60, 97% on 2 L GENERAL: Sitting up in a recliner, comfortable EYES: Pupils equal. Conjunctiva normal. HEENT: External appearance of nose and ears normal, oral cavity grossly normal. NECK: JVD not raised; masses not palpable. HEART: First and second heart sounds are normal; no edema. LUNGS: Respiratory rate normal; decreased breath sounds. ABDOMEN: Soft, nontender, liver spleen not palpable, no masses palpable. PSYCH: Tired but able to answer simple question NEUROLOGICAL: Cranial nerves grossly intact; no facial asymmetry, decreased sensation distally, bradykinesia EXTREMITY: Left below-knee amputation stump and a dressing INVESTIGATIONS, reviewed in the clinical context: Accu-Cheks 118, 122, 189 Previous testing White count 13.8 hemoglobin 11.6 potassium 4.5 bun 25 creatinine 1.31 Potassium 4.3 bun 42 creatinine 1.38 Accu-Cheks 212, 226 Left leg Doppler-negative for DVT Renal ultrasound unremarkable MRI of the foot-multiple disruption or joints. Multiple areas of suspicious for osteomyelitis. Increasing soft tissue air bubbles. Wound culture-multiple different organisms including streptococci Assessment: -Acute gas-forming organism in the left foot which is a Charcot foot leading to disarticulation on September 12. Followed by left below-knee amputation on September 16 -Diabetic foot ulcer on the plantar aspect left foot -Chronic left Charcot foot -Diabetes mellitus type 2 causing peripheral neuropathy, uncontrolled with hypo- glycemia, persisting slow to respond -GERD -Hyperlipidemia -Essential hypertension with urgency -Chronic dysphagia likely from Parkinson's -Idiopathic Parkinson's disease -Acute kidney injury, improved Disposition: [facility], [facility] Plan - Discharge Summary Discharge Rx Participant: Yes New Discharge Prescriptions: New Ipratropium-Albuterol Nebulize [Duoneb 0.5 mg-3 mg/3 ml Soln] 3 ml INHALATION RT-QID ampul.neb Cefazolin Sodium/D5w [Kefzol 2 Gm/D5w 100 ml] 2 gm IV Q8H #21 ml Atorvastatin [Lipitor] 10 mg PO DAILY tab HYDROcodone/APAP 10-325MG [Diablo 10-325] 1 each PO Q6H PRN #10 tab PRN Reason: Pain amLODIPine [Norvasc] 5 mg PO HS tab INSULIN ASPART (NovoLOG) [NovoLOG (formulary)] 0 unit SQ ACHS vial Insuln Asp Prt/Insulin Aspart [NovoLOG MIX 70-30 VIAL] 36 unit SQ AC-BID vial Insuln Asp Prt/Insulin Aspart [NovoLOG MIX 70-30 VIAL] 14 unit SQ AC-LUNCH vial Famotidine [Pepcid] 20 mg PO BID tab Acetaminophen Tab [Tylenol] 650 mg PO Q6HR PRN tab PRN Reason: Mild Pain Or Fever > 100.5 Lisinopril-Hctz 10-12.5 mg [Zestoretic 10-12.5] 1 each PO BID tab Continue Aspirin 81 mg PO DAILY metFORMIN HCL 1,000 mg PO BID Metoprolol Succinate [Toprol XL] 200 mg PO DAILY Carbidopa-Levodopa 25-100 mg [Sinemet 25-100 mg] 1 each PO QID Discontinued Insulin NPH Hum/Reg Insulin Hm [NovoLIN 70-30 100 UNIT/ML VIAL] 85 units SQ BID Simvastatin 40 mg PO DAILY Lisinopril 20 mg PO BID Discharge Medication List Aspirin 81 mg PO DAILY 09/11/19 [History] Carbidopa-Levodopa 25-100 mg [Sinemet 25-100 mg] 1 each PO QID 09/11/19 [History] Metoprolol Succinate [Toprol XL] 200 mg PO DAILY 09/11/19 [History] metFORMIN HCL 1,000 mg PO BID 09/11/19 [History] Acetaminophen Tab [Tylenol] 650 mg PO Q6HR PRN tab 09/18/19 [Rx] Atorvastatin [Lipitor] 10 mg PO DAILY tab 09/18/19 [Rx] Cefazolin Sodium/D5w [Kefzol 2 Gm/D5w 100 ml] 2 gm IV Q8H #21 ml 09/18/19 [Rx] Famotidine [Pepcid] 20 mg PO BID tab 09/18/19 [Rx] HYDROcodone/APAP 10-325MG [Diablo 10-325] 1 each PO Q6H PRN #10 tab 09/18/19 [Rx] INSULIN ASPART (NovoLOG) [NovoLOG (formulary)] 0 unit SQ ACHS vial 09/18/19 [Rx] Insuln Asp Prt/Insulin Aspart [NovoLOG MIX 70-30 VIAL] 14 unit SQ AC-LUNCH vial 09/18/19 [Rx] Insuln Asp Prt/Insulin Aspart [NovoLOG MIX 70-30 VIAL] 36 unit SQ AC-BID vial 09/18/19 [Rx] Ipratropium-Albuterol Nebulize [Duoneb 0.5 mg-3 mg/3 ml Soln] 3 ml INHALATION RT-QID ampul.neb 09/18/19 [Rx] Lisinopril-Hctz 10-12.5 mg [Zestoretic 10-12.5] 1 each PO BID tab 09/18/19 [Rx] amLODIPine [Norvasc] 5 mg PO HS tab 09/18/19 [Rx] Follow up Appointment(s)/Referral(s): Stanley Murillo MD [Primary Care Provider] - 1-2 days [facility] [NON-STAFF] - 1 Week Mohit Caldwell MD [STAFF PHYSICIAN] - 1 Week Thomas Valladares MD [STAFF PHYSICIAN] - 10 Days Kurt William MD [Medical Doctor] - As Needed Activity/Diet/Wound Care/Special Instructions: Wound care per Dr. Chadwick
[2019-09-18 12:27] VITALS: PULSE 84
[2019-09-18] MEDS ORDERED: INSULN ASP PRT/INSULIN ASPART 100 UNIT/ML 10 ML VIAL SQ SCH ×2 (12:30→17:30)
[2019-09-18 13:45] LABS: HCT 33.8 % (39.0-53.0); MCH 28.8 pg (25.0-35.0); MCHC 32.5 g/dL (31.0-37.0); MCV 88.7 fL (80.0-100.0); Mean Platelet Volume 6.7; Platelet Count 423 k/uL (150-450); RBC 3.81 m/uL (4.30-5.90); RDW 14.7 % (11.5-15.5); WBC 9.1 k/uL (3.8-10.6)
[2019-09-18 13:53] LABS: African American GFR (CKD) >90 (>60 ml/min/1.73 sqM); Anion Gap 7 mmol/L; Blood Urea Nitrogen 15 mg/dL (9-20); Calcium 8.5 mg/dL (8.4-10.2); Carbon Dioxide 35 mmol/L (22-30); Chloride 97 mmol/L (98-107); Glucose 203 mg/dL (74-99); Non-African American GFR(CKD) 84 (>60 ml/min/1.73 sqM); Potassium 4.3 mmol/L (3.5-5.1); Sodium 139 mmol/L (137-145)
--- NOTE | 2019-09-18 13:59 | PN ---
PROGRESS NOTE DATE OF SERVICE: 09/18/2019 REASON FOR FOLLOWUP: Left diabetic foot infection. INTERVAL HISTORY: The patient is currently afebrile, has been breathing comfortably. Waiting for placement. No chest pain, shortness of breath or cough. No nausea, no vomiting, no abdominal pain. No pain to the left BK stump. PHYSICAL EXAMINATION: Blood pressure is 177/86, pulse of 96, temperature of 97.8, she is 97% on 2 L nasal cannula. General description is an elderly male, lying in bed in no distress. RESPIRATORY SYSTEM: Unlabored breathing, clear to auscultation anteriorly. HEART: S1, S2. Regular rate and rhythm. ABDOMEN: Soft, no tenderness. Left BK stump with no obvious drainage on the dressing. LABS: No new labs have been obtained today. DIAGNOSTIC IMPRESSION AND PLAN: Patient with left diabetic foot infection in this patient who did have a rapidly spreading infection, status post disarticulation followed by left [id number] amputation. Patient is not bacteremic. The culture positive for strep. He will continue with cefazolin for about a week and close outpatient followup. MMODL / IJN: [id number] /
== END 2019-09-18 15:36 | DRG 617 ==
LOC: EC 01:46 → 4SSUR 02:03
PROVIDERS: ADMIT Hospitalist; ATTEND Hospitalist
PROC: 0Y6N0Z0 Detachment at Left Foot, Complete, Open Approach (ICD-10-PCS; principal; 2019-09-12 07:28)
PROC: 0Y6J0Z1 Detachment at Left Lower Leg, High, Open Approach (ICD-10-PCS; 2019-09-15)
DX: E11.628 Type 2 diabetes mellitus with other skin complications (principal); M86.9 Osteomyelitis, unspecified; N17.9 Acute kidney failure, unspecified; E11.610 Type 2 diabetes mellitus with diabetic neuropathic arthropathy; G20 Parkinson's disease; E11.69 Type 2 diabetes mellitus with other specified complication; E11.621 Type 2 diabetes mellitus with foot ulcer; E11.649 Type 2 diabetes mellitus with hypoglycemia without coma; E11.42 Type 2 diabetes mellitus with diabetic polyneuropathy; L97.529 Non-pressure chronic ulcer of other part of left foot with unspecified severity; E66.01 Morbid (severe) obesity due to excess calories; E78.5 Hyperlipidemia, unspecified; G47.30 Sleep apnea, unspecified; H91.90 Unspecified hearing loss, unspecified ear; I25.10 Atherosclerotic heart disease of native coronary artery without angina pectoris; I25.2 Old myocardial infarction; J45.909 Unspecified asthma, uncomplicated; K21.9 Gastro-esophageal reflux disease without esophagitis; M19.90 Unspecified osteoarthritis, unspecified site; R13.10 Dysphagia, unspecified; H26.9 Unspecified cataract; K57.90 Diverticulosis of intestine, part unspecified, without perforation or abscess without bleeding; R26.9 Unspecified abnormalities of gait and mobility; I10 Essential (primary) hypertension; Z68.35 Body mass index [BMI] 35.0-35.9, adult; Z79.4 Long term (current) use of insulin; Z79.82 Long term (current) use of aspirin; Z79.899 Other long term (current) drug therapy; Z88.0 Allergy status to penicillin; Z90.49 Acquired absence of other specified parts of digestive tract; Z87.01 Personal history of pneumonia (recurrent); Z86.14 Personal history of Methicillin resistant Staphylococcus aureus infection; Z80.0 Family history of malignant neoplasm of digestive organs; Z82.49 Family history of ischemic heart disease and other diseases of the circulatory system; Z82.3 Family history of stroke
CPT/HCPCS: 36410; 71045; 76770; 76937; 80048; 81001; 82550; 83036; 85025; 85027; 87040; 87070; 87075; 87077; 87186; 87205; 88307; 88311; 93923; 94640; 94760; 96374; 99285

== ENCOUNTER 2024-01-06 11:23 | Inpatient (IN) | payer MEDICARE ==
--- NOTE | 2024-01-06 13:08 | ED ---
Altered Mental Status HPI - General Chief Complaint: Altered Mental Status Stated Complaint: Fever/Weakness Time Seen by Provider: 01/06/24 12:15 Source: patient, RN notes reviewed, old records reviewed, Caregiver Mode of arrival: wheelchair Limitations: no limitations, altered mental status - History of Present Illness Initial Comments: This is 68-year-old male who is unable provide history presents today for evaluation of altered mental status unknown baseline unknown current condition. Patient comes in for evaluation regarding decreased and alteration of mental status. Patient was sent to us from wound care where he was found to have a fever MD Complaint: altered mental status, confusion -: unknown Severity: moderate Consistency of Symptoms: getting worse Context: history of similar presentation, recent fever Associated Symptoms: weakness Treatments Prior to Arrival: other pre-hospital medication - Related Data Home Medications Medication Instructions Recorded Confirmed Carbidopa-Levodopa 25-100 mg 1 tab PO Q8H 09/11/19 01/06/24 [Sinemet 25-100 mg] Acetaminophen Tab [Tylenol] 650 mg PO Q4H PRN 01/06/24 01/06/24 Active Liquid Protein 30 ml PO DAILY 01/06/24 01/06/24 Atorvastatin [Lipitor] 10 mg PO HS 01/06/24 01/06/24 FLUoxetine HCL [PROzac] 10 mg PO DAILY 01/06/24 01/06/24 Fluticasone Propion/Salmeterol 1 puff PO RT-BID 01/06/24 01/06/24 [Advair 100-50 Diskus] House Supplement 120 ml PO BID 01/06/24 01/06/24 INSULIN LISPRO (HumaLOG) [humaLOG] See Protocol SQ ACHS 01/06/24 01/06/24 Insulin Glargine,Hum.rec.anlog 20 units SQ DAILY 01/06/24 01/06/24 [Lantus Solostar Pen] Magnesium Hydroxide [Milk of 2,400 mg PO DAILY PRN 01/06/24 01/06/24 Magnesia] Metoprolol Succinate (ER) [Toprol 100 mg PO DAILY 01/06/24 01/06/24 XL] Pimavanserin Tartrate [Nuplazid] 34 mg PO HS 01/06/24 01/06/24 Sennosides/Docusate Sodium 2 tab PO DAILY 01/06/24 01/06/24 [Senna-S 8.6-50 mg Tablet] Tamsulosin HCl [Flomax] 0.4 mg PO DAILY 01/06/24 01/06/24 Tussin Dm 10 ml PO Q4H PRN 01/06/24 01/06/24 guaiFENesin 400 mg PO Q4H PRN 01/06/24 01/06/24 lisinopriL [Zestril] 10 mg PO BID 01/06/24 01/06/24 Previous Rx's Medication Instructions Recorded Collagenase [Santyl Ointment] 1 applic TOPICAL DAILY each 01/13/24 Fluconazole [Diflucan] 100 mg PO DAILY 14 Days #14 tab 01/13/24 Heparin Sodium,Porcine (1 ml) 5,000 unit SQ Q12HR each 01/13/24 [Heparin Sodium] amLODIPine [Norvasc] 10 mg PO DAILY tab 01/13/24 cefTRIAXone [Rocephin] 2 gm IVPB Q24H 42 Days #42 each 01/13/24 metroNIDAZOLE [Flagyl] 500 mg PO TID 42 Days #126 tab 01/13/24 traMADol HCL 50 mg PO TID PRN #8 tab 01/13/24 Allergies Allergy/AdvReac Type Severity Reaction Status Date / Time Penicillins Allergy Rash/Hives Verified 01/06/24 15:19 Review of Systems ROS Statement: Those systems with pertinent positive or pertinent negative responses have been documented in the HPI. ROS Other: All systems not noted in ROS Statement are negative. Past Medical History Past Medical History: Asthma, Diabetes Mellitus, GERD/Reflux, Hearing Disorder / Deafness, Hyperlipidemia, Hypertension, Myocardial Infarction (TN), Neurologic Disorder, Osteoarthritis (OA), Pneumonia, Sleep Apnea/CPAP/BIPAP Additional Past Medical History / Comment(s): parkinsons, neuropathy, Charcot's disease, PT STATES WAS TOLD HAD SILENT TN IN LOWER HALF OF HEART. CONSTANT SINUS PROBLEMS-RUNNY NOSE-CLEAR- PHLEGM IN THROAT-. HARD TO SWALLOW FOOD AT TIMES-TRIES TO DRINK A LOT OF WATER WITH FOOD- HAS HAD UGI- WAS OK-CAUSES PRE SSURE IN CHEST AREA WHEN HAS TO EAT FOOD LIKE BREADS. SOB ON EXERTION-TIRES EASILY. WAS TOLD PROBABLY HAS SLEEP APNEA BUT NEVER TESTED. DIVERTICULOSIS. CATARACT LEFT EYE Last Myocardial Infarction Date:: UNKNOWN History of Any Multi-Drug Resistant Organisms: MRSA Date of last positivie culture/infection: 11/2013 MDRO Source:: BACK Past Surgical History: Cholecystectomy, Heart Catheterization, Orthopedic Surgery Additional Past Surgical History / Comment(s): LT SHOULDER SURGERY- 4 PINS IN- INJURY @ WORK. LIPOMA OFF AREA BELOW RT BREAST & RT UPPER THIGH Past Anesthesia/Blood Transfusion Reactions: No Reported Reaction Past Psychological History: No Psychological Hx Reported Past Alcohol Use History: Rare Past Drug Use History: None Reported - Past Family History Father Family Medical History: Cancer, CVA/TIA, Myocardial Infarction (TN) Additional Family Medical History / Comment(s): CA-VOICE BOX Mother Family Medical History: Cancer Additional Family Medical History / Comment(s): COLON CA General Exam Limitations: no limitations, altered mental status General appearance: alert, in no apparent distress Head exam: Present: atraumatic, normocephalic, normal inspection Eye exam: Present: normal appearance, PERRL, EOMI. Absent: scleral icterus, conjunctival injection, periorbital swelling ENT exam: Present: normal exam, mucous membranes moist Neck exam: Present: normal inspection. Absent: tenderness, meningismus, lymphadenopathy Respiratory exam: Present: normal lung sounds bilaterally. Absent: respiratory distress, wheezes, rales, rhonchi, stridor Cardiovascular Exam: Present: regular rate, normal rhythm, normal heart sounds. Absent: systolic murmur, diastolic murmur, rubs, gallop, clicks GI/Abdominal exam: Present: soft, normal bowel sounds. Absent: distended, tenderness, guarding, rebound, rigid Extremities exam: Present: normal inspection, full ROM, normal capillary refill. Absent: tenderness, pedal edema, joint swelling, calf tenderness Back exam: Present: normal inspection Neurological exam: Present: alert, oriented X3, CN II-XII intact Psychiatric exam: Present: normal affect, normal mood Skin exam: Present: warm, dry, intact, normal color. Absent: rash Course Vital Signs 01/06/24 01/06/24 01/06/24 11:31 14:43 16:58 Temperature 98.6 F 98.2 F Pulse Rate 127 H 94 89 Respiratory 20 20 20 Rate Blood Pressure 146/72 140/63 134/78 O2 Sat by Pulse 97 95 97 Oximetry 01/06/24 01/06/24 01/06/24 18:50 19:35 20:00 Temperature 98.5 F Pulse Rate 84 86 87 Respiratory 18 18 18 Rate Blood Pressure 118/67 118/67 118/67 O2 Sat by Pulse 94 L 94 L 95 Oximetry 01/06/24 01/06/24 01/07/24 21:00 23:00 00:00 Temperature Pulse Rate 85 85 86 Respiratory 19 17 18 Rate Blood Pressure 135/70 148/67 144/72 O2 Sat by Pulse 94 L 95 94 L Oximetry - Reevaluation(s) Reevaluation #1: 01/06/24 14:06 Records reviewed Reevaluation #2: Patient has no improvement in symptoms here in the ER Reevaluation #3: Informed of results questions answered Reevaluation #4: Was pt. sent in by a medical professional or institution ([facility], GLASS INSTALLER TECHNICIAN, urgent care, hospital, or residential...) When possible be specific @ -no Did you speak to anyone other than the patient for history (EMS, parent, family, police, friend...)? What history was obtained from this source @ -no Did you review nursing and triage notes (agree or disagree)? Why? @ -agree Are old charts reviewed (outside hosp., previous admission, EMS record, old EKG, old radiological studies, urgent care reports/EKG's, residential records)? Report findings @ -yes Differential Diagnosis (chest pain, altered mental status, abdominal pain women, abdominal pain men, vaginal bleeding, weakness, fever, dyspnea, syncope, headache, dizziness, GI bleed, back pain, seizure, CVA, palpatations, mental health, musculoskeletal)? @ -prior EKG interpreted by me (3pts min.). @ -yes X-rays interpreted by me (1pt min.). @ -yes negative for acute disease CT interpreted by me (1pt min.). @ -no U/S interpreted by me (1pt. min.). @ -no What testing was considered but not performed or refused? (CT, X-rays, U/S, labs)? Why? @ -none What meds were considered but not given or refused? Why? @ -none Did you discuss the management of the patient with other professionals (professionals i.e. EMM[facility], GLASS INSTALLER TECHNICIAN, lab, RT, psych nurse, social human services assistants, telecommunications field technician, teacher, air crew officer, case maker)? Give summary @ -no Was smoking cessation discussed for >3mins.? @ -no Was critical care preformed (if so, how long)? @ -no Were there social determinants of health that impacted care today? How? (Homelessness, low income, unemployed, alcoholism, drug addiction, transportation, low edu. Level, literacy, decrease access to med. care, long term, rehab)? @ -none Was there de-escalation of care discussed even if they declined (Discuss DNR or withdrawal of care, Hospice)? DNR status @ -no What co-morbidities impacted this encounter? (DM, HTN, Smoking, COPD, CAD, Cancer, CVA, ARF, Chemo, Hep., AIDS, mental health diagnosis, sleep apnea, morbid obesity)? @ -none Was patient admitted / discharged? Hospital course, mention meds given and route, prescriptions, significant lab abnormalities, going to OR and other pertinent info. @ - 68 male to the ER for evaluation patient presents today for evaluation of altered mental status uncertain of cause found for altered mental status likely delirium with chronic medical disease. Patient will be admitted for further evaluation and management patient did have reported fever will be placed on antibiotics Admitted Undiagnosed new problem with uncertain prognosis? @ -no Drug Therapy requiring intensive monitoring for toxicity (Heparin, Nitro, Insulin, Cardizem)? @ -no Were any procedures done? @ -no Diagnosis/symptom? @ -UTI weakness altered mental status sacral decubitus ulcer Acute, or Chronic, or Acute on Chronic? @ -Acute Uncomplicated (without systemic symptoms) or Complicated (systemic symptoms)? @ -Complicated Side effects of treatment? @ -no Exacerbation, Progression, or Severe Exacerbation? @ -exacerbation Poses a threat to life or bodily function? How? (Chest pain, [place], [place], pneumonia, PE, COPD, DKA, ARF, appy, cholecystitis, CVA, Diverticulitis, Homicidal, S uicidal, threat to staff... and all critical care pts) @ -yes with significant infection likely sacral decub with UTI Reevaluation #5: Differential Fever: Pneumonia, viral URI, endocarditis, myocarditis, pericarditis, otitis, sinusitis, peritonsillar Abscess, retropharyngeal Abscess, epiglottitis, peritonitis, appendicitis, G[place] cystitis, diverticulitis, hepatitis, colitis, UTI, PID, TOA, pyelonephritis, prostatitis, epididymitis, meningitis, encephalitis, pulmonary embolism, CVA, thyroid storm, pancreatitis, adrenal crisis, cavernous sinus thrombosis, this is not meant to be an all-inclusive list. Differential Altered Mental Status: Hypoglycemia, DKA, hypercapnia, ETOH, overdose, CO poisoning, trauma, myxedema coma, HTN encephalopathy, infection, encephalitis, psychosis, intercranial hemorrhage, hepatic encephalopathy, meningitis, CVA, this is not meant to be an all-inclusive list - Consultations Consultation #1: Spoke with admitting physicians who agreed to admit this patient Medical Decision Making - Medical Decision Making 68 male to the ER for evaluation patient presents today for evaluation of altered mental status uncertain of cause found for altered mental status likely delirium with chronic medical disease. Patient will be admitted for further evaluation and management patient did have reported fever will be placed on antibiotics - Lab Data Result diagrams: 01/09/24 05:54 01/13/24 04:27 Lab Results 01/06/24 01/06/24 01/06/24 Range/Units 13:05 13:05 13:05 WBC 10.6 (3.8-10.6) k/uL RBC 4.59 (4.30-5.90) m/uL Hgb 12.7 L (13.0-17.5) gm/dL Hct 40.5 (39.0-53.0) % MCV 88.1 (80.0-100.0) fL MCH 27.7 (25.0-35.0) pg MCHC 31.5 (31.0-37.0) g/dL RDW 13.7 (11.5-15.5) % Plt Count 408 (150-450) k/uL MPV 7.3 Neutrophils % 78 % Lymphocytes % 11 % Monocytes % 6 % Eosinophils % 2 % Basophils % 0 % Neutrophils # 8.3 H (1.3-7.7) k/uL Lymphocytes # 1.2 (1.0-4.8) k/uL Monocytes # 0.7 (0-1.0) k/uL Eosinophils # 0.2 (0-0.7) k/uL Basophils # 0.0 (0-0.2) k/uL PT 10.9 (10.0-12.5) sec INR 1.0 (<1.2) APTT 23.8 (22.0-30.0) sec Sodium 138 (137-145) mmol/L Potassium 4.7 (3.5-5.1) mmol/L Chloride 104 (98-107) mmol/L Carbon Dioxide 29 (22-30) mmol/L Anion Gap 5 mmol/L BUN 25 H (9-20) mg/dL Creatinine 0.73 (0.66-1.25) mg/dL Est GFR (CKD-EPI)AfAm >90 (>60 ml/min/1.73 sqM) Est GFR (CKD-EPI)NonAf >90 (>60 ml/min/1.73 sqM) Glucose 204 H (74-99) mg/dL Plasma Lactic Acid Taras (0.7-2.0) mmol/L Calcium 8.6 (8.4-10.2) mg/dL Phosphorus 2.6 (2.5-4.5) mg/dL Magnesium 2.0 (1.6-2.3) mg/dL Total Bilirubin 0.4 (0.2-1.3) mg/dL AST 19 (17-59) U/L ALT 10 (4-49) U/L Alkaline Phosphatase 123 (38-126) U/L Ammonia (<30) umol/L Troponin I (0.000-0.034) ng/mL NT-Pro-B Natriuret Pep 468 pg/mL Total Protein 6.8 (6.3-8.2) g/dL Albumin 2.9 L (3.5-5.0) g/dL TSH 1.580 (0.465-4.680) mIU/L Urine Color Urine Appearance (Clear) Urine pH (5.0-8.0) Ur Specific [place] (1.001-1.035) Urine Protein (Negative) Urine Glucose (UA) (Negative) Urine Ketones (Negative) Urine Blood (Negative) Urine Nitrite (Negative) Urine Bilirubin (Negative) Urine Urobilinogen (<2.0) mg/dL Ur Leukocyte Esterase (Negative) Urine RBC (0-5) /hpf Urine WBC (0-5) /hpf Uric Acid Crystals (None) /hpf Urine Bacteria (None) /hpf Hyaline Casts (0-2) /lpf Urine Mucus (None) /hpf 01/06/24 01/06/24 01/06/24 Range/Units 13:05 13:05 13:15 WBC (3.8-10.6) k/uL RBC (4.30-5.90) m/uL Hgb (13.0-17.5) gm/dL Hct (39.0-53.0) % MCV (80.0-100.0) fL MCH (25.0-35.0) pg MCHC (31.0-37.0) g/dL RDW (11.5-15.5) % Plt Count (150-450) k/uL MPV Neutrophils % % Lymphocytes % % Monocytes % % Eosinophils % % Basophils % % Neutrophils # (1.3-7.7) k/uL Lymphocytes # (1.0-4.8) k/uL Monocytes # (0-1.0) k/uL Eosinophils # (0-0.7) k/uL Basophils # (0-0.2) k/uL PT (10.0-12.5) sec INR (<1.2) APTT (22.0-30.0) sec Sodium (137-145) mmol/L Potassium (3.5-5.1) mmol/L Chloride (98-107) mmol/L Carbon Dioxide (22-30) mmol/L Anion Gap mmol/L BUN (9-20) mg/dL Creatinine (0.66-1.25) mg/dL Est GFR (CKD-EPI)AfAm (>60 ml/min/1.73 sqM) Est GFR (CKD-EPI)NonAf (>60 ml/min/1.73 sqM) Glucose (74-99) mg/dL Plasma Lactic Acid Taras 1.4 (0.7-2.0) mmol/L Calcium (8.4-10.2) mg/dL Phosphorus (2.5-4.5) mg/dL Magnesium (1.6-2.3) mg/dL Total Bilirubin (0.2-1.3) mg/dL AST (17-59) U/L ALT (4-49) U/L Alkaline Phosphatase (38-126) U/L Ammonia <9 (<30) umol/L Troponin I <0.012 (0.000-0.034) ng/mL NT-Pro-B Natriuret Pep pg/mL Total Protein (6.3-8.2) g/dL Albumin (3.5-5.0) g/dL TSH (0.465-4.680) mIU/L Urine Color Yellow Urine Appearance Cloudy (Clear) Urine pH 5.5 (5.0-8.0) Ur Specific [place] 1.027 (1.001-1.035) Urine Protein 1+ H (Negative) Urine Glucose (UA) Trace H (Negative) Urine Ketones Negative (Negative) Urine Blood Moderate H (Negative) Urine Nitrite Negative (Negative) Urine Bilirubin Negative (Negative) Urine Urobilinogen <2.0 (<2.0) mg/dL Ur Leukocyte Esterase Large H (Negative) Urine RBC 115 H (0-5) /hpf Urine WBC 37 H (0-5) /hpf Uric Acid Crystals Few H (None) /hpf Urine Bacteria Rare H (None) /hpf Hyaline Casts 3 H (0-2) /lpf Urine Mucus Moderate H (None) /hpf - EKG Data -: EKG Interpreted by Me (EKG is sinus 85 SC 113 QRS 144 QTc 435) - Radiology Data Radiology results: report reviewed (Chest x-ray is negative for acute disease), image reviewed Disposition Clinical Impression: Altered mental status, Weakness, Delirium due to general medical condition, UTI (urinary tract infection), Left foot infection, Infected decubitus ulcer Disposition: ADMITTED IP TO THIS HOSP Condition: Fair Is patient prescribed a controlled substance at d/c from ED?: No Time of Disposition: 16:00
[2024-01-06] MEDS: SODIUM CHLORIDE 0.9% 1,000 ML IV STA (13:09)
[2024-01-06 13:12] LABS: Basophils % (A) 0 %; Eosinophils # (A) 0.2 k/uL (0-0.7); Eosinophils % (A) 2 %; HCT 40.5 % (39.0-53.0); HGB 12.7 gm/dL (13.0-17.5); Lymphocytes # (A) 1.2 k/uL (1.0-4.8); Lymphocytes % (A) 11 %; MCH 27.7 pg (25.0-35.0); MCHC 31.5 g/dL (31.0-37.0); MCV 88.1 fL (80.0-100.0); Mean Platelet Volume 7.3; Monocytes # (A) 0.7 k/uL (0-1.0); Monocytes % (A) 6 %; Neutrophils # (A) 8.3 k/uL (1.3-7.7); Neutrophils % (A) 78 %; Platelet Count 408 k/uL (150-450); RBC 4.59 m/uL (4.30-5.90); RDW 13.7 % (11.5-15.5); WBC 10.6 k/uL (3.8-10.6)
[2024-01-06 13:22] LABS: Partial Thromboplastin Time 23.8 sec (22.0-30.0); Prothrombin Time 10.9 sec (10.0-12.5)
[2024-01-06 13:31] LABS: Lactic Acid, Venous 1.4 mmol/L (0.7-2.0)
[2024-01-06 13:34] LABS: Appearance,Urine Cloudy (Clear); Bacteria,Urine Rare /hpf; Bilirubin,Urine Negative (Negative); Blood,Urine Moderate (Negative); Color,Urine Yellow; Glucose,Urine (UA) Trace (Negative); Hyaline Casts,Urine 3 /lpf (0-2); Ketones,Urine Negative (Negative); Leukocyte Esterase,Urine Large (Negative); Mucus,Urine Moderate /hpf; Nitrite,Urine Negative (Negative); PH, Urine 5.5 (5.0-8.0); Protein,Urine 1+ (Negative); RBC,Urine 115 /hpf (0-5); Specific Gravity,Urine 1.027 (1.001-1.035); Uric Acid Crystals,Urine Few /hpf; Urobilinogen,Urine <2.0 mg/dL (<2.0); WBC,Urine 37 /hpf (0-5)
[2024-01-06 13:34] LABS: ALT 10 U/L (4-49); AST 19 U/L (17-59); African American GFR (CKD) >90 (>60 ml/min/1.73 sqM); Albumin 2.9 g/dL (3.5-5.0); Alkaline Phosphatase 123 U/L (38-126); Anion Gap 5 mmol/L; Blood Urea Nitrogen 25 mg/dL (9-20); Calcium 8.6 mg/dL (8.4-10.2); Carbon Dioxide 29 mmol/L (22-30); Chloride 104 mmol/L (98-107); Glucose 204 mg/dL (74-99); Non-African American GFR(CKD) >90 (>60 ml/min/1.73 sqM); Phosphorus 2.6 mg/dL (2.5-4.5); Potassium 4.7 mmol/L (3.5-5.1); Sodium 138 mmol/L (137-145); Total Bilirubin 0.4 mg/dL (0.2-1.3); Total Protein 6.8 g/dL (6.3-8.2)
[2024-01-06 13:42] LABS: NT-Pro-B-Type Natriuretic Pept 468 pg/mL
--- NOTE | 2024-01-06 13:54 | XR ---
EXAMINATION TYPE: XR chest 2V DATE OF EXAM: 01/06/2024 COMPARISON: 09/12/2019 HISTORY: Shortness of breath TECHNIQUE: Frontal and lateral views of the chest are obtained. FINDINGS: Scattered senescent parenchymal changes noted. No evidence for infiltrate. No evidence for atelectasis. Heart size is stable. Mediastinal structures are stable and grossly unremarkable. No evidence for hilar prominence. Degenerative changes dorsal spine. IMPRESSION: 1. No evidence for acute pulmonary disease.
[2024-01-06] MEDS: ACETAMINOPHEN IV (For NPO) 1,000 MG in EMPTY BAG 1 BAG IVPB STA (14:41)
[2024-01-06] MEDS: IBUPROFEN IV 800 MG in SODIUM CHLORIDE 0.9% 250 ML IV ONE (15:40)
[2024-01-06] MEDS ORDERED: NALOXONE 0.4 MG/ML 1 ML VIAL IV PRN (16:07)
[2024-01-06] MEDS ORDERED: VANCOMYCIN IV PER PHARMACY 1 EACH MISC MISCELLANE PRN (16:18)
[2024-01-06] MEDS: SODIUM CHLORIDE 0.9% 1,000 ML IV SCH (17:04)
[2024-01-06] MEDS: VANCOMYCIN 1,750 MG in SODIUM CHLORIDE 0.9% 500 ML 500 ML IVPB STA (19:01)
[2024-01-07] MEDS: MORPHINE SULFATE 4 MG/ML SYRINGE IV PRN (02:23)
[2024-01-07] MEDS: VANCOMYCIN 1,750 MG in SODIUM CHLORIDE 0.9% 500 ML 500 ML IVPB SCH (06:19)
[2024-01-07 06:33] LABS: Glucose,Whole Blood 148 mg/dL (70-110)
[2024-01-07] MEDS ORDERED: MAGNESIUM HYDROXIDE 2,400 MG/30 ML CUP PO PRN (07:39)
[2024-01-07] MEDS ORDERED: guaiFENesin SYRUP 100MG/5ML 200 MG/10 ML CUP PO PRN (07:39)
[2024-01-07] MEDS ORDERED: guaiFENesin-DM 100-10MG/5ML 10 ML CUP PO PRN (07:39)
[2024-01-07] MEDS ORDERED: DEXTROSE 50% SYRINGE 50 ML IVP PRN ×2 (07:42)
[2024-01-07 08:48] LABS: ALT 17 U/L (10-49); AST 21 U/L (14-35); Albumin 2.7 g/dL (3.8-4.9); Alkaline Phosphatase 100 U/L (41-126); BUN/Creat Ratio 24.67 Ratio (12.00-20.00); Blood Urea Nitrogen 14.8 mg/dL (9.0-27.0); Calcium 7.9 mg/dL (8.7-10.3); Carbon Dioxide 26.9 mmol/L (21.6-31.8); Chloride 105 mmol/L (96-109); Glucose 165 mg/dL (70-110); Magnesium 1.8 mg/dL (1.5-2.4); Phosphorus 2.1 mg/dL (2.4-5.1); Potassium 4.1 mmol/L (3.5-5.5); Sodium 140 mmol/L (135-145); Total Bilirubin 0.3 mg/dL (0.3-1.2); Total Protein 5.7 g/dL (6.2-8.2)
[2024-01-07 09:31] LABS: Basophils # (A) 0.02 X 10*3/uL (0.00-0.10); Basophils % (A) 0.2 %; Eosinophils # (A) 0.17 X 10*3/uL (0.04-0.35); Eosinophils % (A) 1.9 %; HCT 34.9 % (39.6-50.0); HGB 10.9 g/dL (13.0-17.0); Lymphocytes # (A) 0.74 X 10*3/uL (0.90-5.00); Lymphocytes % (A) 8.2 %; MCH 27.7 pg (27.0-32.0); MCHC 31.2 g/dL (32.0-37.0); MCV 88.8 FL (80.0-97.0); Mean Platelet Volume 9.6 FL (9.5-12.2); Monocytes # (A) 0.59 X 10*3/uL (0.20-1.00); Monocytes % (A) 6.6 %; NRBC Per 100 WBC 0 X 10*3/uL (0.00-0.01); Neutrophils # (A) 7.43 X 10*3/uL (1.80-7.70); Neutrophils % (A) 82.8 %; Platelet Count 332 X 10*3/uL (140-440); RBC 3.93 X 10*6/uL (4.40-5.60); RDW 13.5 % (11.5-14.5); WBC 8.98 X 10*3/uL (4.50-10.00)
[2024-01-07] MEDS: SYMBICORT 80-4.5 MCG INHALER INHALATION SCH (09:34)
[2024-01-07] MEDS: TAMSULOSIN 0.4 MG CAP.ER.24H PO SCH (10:28)
[2024-01-07] MEDS: SENNOSIDES-DOCUSATE SODIUM 1 EACH TAB PO SCH (10:28)
[2024-01-07] MEDS: lisinopriL 10 MG TAB PO SCH (10:28)
[2024-01-07] MEDS: traMADol 50 MG TAB PO SCH (10:29)
[2024-01-07] MEDS: FLUoxetine HCL 10 MG CAP PO SCH (10:29)
[2024-01-07] MEDS: METOPROLOL SUCCINATE (ER) 100 MG TAB.ER.24H PO SCH (10:29)
[2024-01-07] MEDS: QUEtiapine 100 MG TAB PO SCH (10:29)
[2024-01-07] MEDS: INSULIN DETEMIR (LEVEMIR) 100 UNIT/ML SYR SQ SCH (10:31)
[2024-01-07] MEDS: CARBIDOPA-LEVODOPA 25-100 MG 1 EACH TAB PO SCH (10:32)
[2024-01-07 11:38] LABS: Glucose,Whole Blood 172 mg/dL (70-110)
--- NOTE | 2024-01-07 11:39 | P.CONS ---
History of Present Illness - Reason for Consult Consult date: 01/07/24 wound care - History of Present Illness This is a 68-year-old patient who is known to the wound care center who was seen yesterday in wound care and sent to the emergency room for decline in ulceration increased hallucinations and elevated heart rate. Patient has a stage IV pressure ulcer to the sacrum with significant amount of eschar undermining and tunneling noted. Able to palpate bone. Have been utilizing Santyl to the site. Patient had an aggressive debridement last week however the ulceration has declined in 1 week with increased eschar and odiferous.Patient is a poor historian. He is having visual hallucinations. Patient has history of Parkinson and diabetes. Original cause of wound was Pressure Injury. The date acquired was: 10/30/2023. The wound has been in treatment 1 weeks. The wound is currently classified as a Category/Stage IV wound with etiology of Pressure Ulcer and is located on the Medial Coccyx. The wound measures 4.1cm length x 3.2cm width x 3cm depth; 10.304cm^2 area and 30.913cm^3 volume. There is Fat Layer (Subcutaneous Tissue) and fascia exposed. There is no tunneling or undermining noted. There is a medium amount of serous drainage noted. The wound margin is distinct with the outline attached to the wound base. There is small (1-33%) pink granulation within the wound bed. There is a large (67-100%) amount of necrotic tissue within the wound bed including Adherent Slough. The periwound skin appearance had no abnormalities noted for moisture. The periwound skin appearance had no abnormalities noted for color. The periwound skin appearance exhibited: Scarring. The periwound skin appearance did not exhibit: Callus, Crepitus, Excoriation, Induration, Rash. Periwound temperature was noted as No Abnormality. Review Of Systems: Constitutional: No fever, no chills, no night sweats. No weight change. No weakness, fatigue or lethargy. No daytime sleepiness. Integumentary:reports wounds, no lesions. No rash or pruritus. No unusual bruising. No change in hair or nails. Physical exam: General Appearance: Alert, cooperative, no distress, appears stated age. Skin: See HPI all other Skin color, texture, tugor normal, no rashes or lesions. Neurologic: Alert oriented x3 Assessment: 1. Stage IV pressure ulcer 2. Diabetes with skin ulceration 3. Parkinson Plan: 1. Surgical consult for surgical debridement with possible application of negative pressure wound VAC if the ulceration has greater than 70% of granulation noted. Until that time continue with Santyl. Patient will return to the wound care center upon discharge. Thank you for the consultation any questions please contact the wound care center DNP note has been reviewed and discussed with Dr. Vinson and the impression and plan of care has been directed as dictated. Past Medical History Past Medical History: Asthma, Coronary Artery Disease (CAD), Diabetes Mellitus, GERD/Reflux, Hearing Disorder / Deafness, Hyperlipidemia, Hypertension, Bill cardial Infarction ([place]), Neurologic Disorder, Osteoarthritis (OA), Pneumonia, Sleep Apnea/CPAP/BIPAP Additional Past Medical History / Comment(s): CKD, parkinsons, neuropathy, Charcot's disease, PT STATES WAS TOLD HAD SILENT IN IN LOWER HALF OF HEART. CONSTANT SINUS PROBLEMS-RUNNY NOSE-CLEAR- PHLEGM IN THROAT-. HARD TO SWALLOW FOOD AT TIMES-TRIES TO DRINK A LOT OF WATER WITH FOOD- HAS HAD UGI- WAS OK- CAUSES PRESSURE IN CHEST AREA WHEN HAS TO EAT FOOD LIKE BREADS. SOB ON EXERTION-TIRES EASILY. WAS TOLD PROBABLY HAS SLEEP APNEA BUT NEVER TESTED. DIVERTICULOSIS. CATARACT LEFT EYE Last Myocardial Infarction Date:: UNKNOWN History of Any Multi-Drug Resistant Organisms: MRSA Year Discovered:: 11/2013 MDRO Source:: BACK Past Surgical History: Cholecystectomy, Heart Catheterization, Orthopedic Surgery Additional Past Surgical History / Comment(s): LT SHOULDER SURGERY- 4 PINS IN- INJURY @ WORK. LIPOMA OFF AREA BELOW RT BREAST & RT UPPER THIGH Past Anesthesia/Blood Transfusion Reactions: No Reported Reaction Past Psychological History: Depression Smoking Status: Unknown if ever smoked Past Alcohol Use History: Rare Past Drug Use History: None Reported - Past Family History Father Family Medical History: Cancer, CVA/TIA, Myocardial Infarction ([place]) Additional Family Medical History / Comment(s): CA-VOICE BOX Mother Family Medical History: Cancer Additional Family Medical History / Comment(s): COLON CA Medications and Allergies Home Medications Medication Instructions Recorded Confirmed Type Carbidopa-Levodopa 25-100 mg 1 tab PO Q8H 09/11/19 01/06/24 History [Sinemet 25-100 mg] ALPRAZolam [Xanax] 0.5 mg PO Q8H PRN 01/06/24 01/06/24 History Acetaminophen Tab [Tylenol] 650 mg PO BID 01/06/24 01/06/24 History Acetaminophen Tab [Tylenol] 650 mg PO Q4H PRN 01/06/24 01/06/24 History Active Liquid Protein 30 ml PO DAILY 01/06/24 01/06/24 History Atorvastatin [Lipitor] 10 mg PO HS 01/06/24 01/06/24 History FLUoxetine HCL [PROzac] 10 mg PO DAILY 01/06/24 01/06/24 History Fluticasone Propion/Salmeterol 1 puff PO RT-BID 01/06/24 01/06/24 History [Advair 100-50 Diskus] House Supplement 120 ml PO BID 01/06/24 01/06/24 History INSULIN LISPRO (HumaLOG) [humaLOG] See Protocol SQ ACHS 01/06/24 01/06/24 History Insulin Glargine,Hum.rec.anlog 20 units SQ DAILY 01/06/24 01/06/24 History [Lantus Solostar Pen] Magnesium Hydroxide [Milk of 2,400 mg PO DAILY PRN 01/06/24 01/06/24 History Magnesia] Metoprolol Succinate (ER) [Toprol 100 mg PO DAILY 01/06/24 01/06/24 History Xl] Pimavanserin Tartrate [Nuplazid] 34 mg PO HS 01/06/24 01/06/24 History QUEtiapine [SEROquel] 100 mg PO BID 01/06/24 01/06/24 History Sennosides/Docusate Sodium 2 tab PO DAILY 01/06/24 01/06/24 History [Senna-S 8.6-50 mg Tablet] Tamsulosin HCl [Flomax] 0.4 mg PO DAILY 01/06/24 01/06/24 History Tussin Dm 10 ml PO Q4H PRN 01/06/24 01/06/24 History guaiFENesin 400 mg PO Q4H PRN 01/06/24 01/06/24 History lisinopriL [Zestril] 10 mg PO BID 01/06/24 01/06/24 History traMADol HCL 50 mg PO TID 01/06/24 01/06/24 History Allergies Allergy/AdvReac Type Severity Reaction Status Date / Time Penicillins Allergy Rash/Hives Verified 01/06/24 15:19 Physical Exam Vitals: Vital Signs Temp Pulse Pulse Resp BP BP Pulse Ox 01/07/24 08:00 92 18 01/07/24 07:08 98.1 F 92 18 172/85 95 01/07/24 01:09 98.3 F 85 17 112/64 95 01/07/24 00:00 86 18 144/72 94 L 01/06/24 23:00 85 17 148/67 95 01/06/24 21:00 85 19 135/70 94 L 01/06/24 20:00 87 18 118/67 95 01/06/24 19:35 98.5 F 86 18 118/67 94 L 01/06/24 18:50 84 18 118/67 94 L 01/06/24 16:58 89 20 134/78 97 01/06/24 14:43 98.2 F 94 20 140/63 95 Intake and Output 01/06/24 01/07/24 01/07/24 22:59 06:59 14:59 Other: Voiding Method Indwelling Catheter Indwelling Catheter Weight 113.398 kg Results CBC & Chem 7: 01/07/24 04:00 01/07/24 04:00 Labs: Abnormal Lab Results - Last 24 Hours (Table) 01/06/24 01/06/24 01/06/24 Range/Units 13:05 13:05 13:15 RBC (4.40-5.60) X 10*6/uL Hgb 12.7 L (13.0-17.5) gm/dL Hct (39.6-50.0) % MCHC (32.0-37.0) g/dL Neutrophils # 8.3 H (1.3-7.7) k/uL Lymphocytes # (0.90-5.00) X 10*3/uL BUN 25 H (9-20) mg/dL BUN/Creatinine Ratio (12.00-20.00) Ratio Glucose 204 H (74-99) mg/dL POC Glucose (mg/dL) (70-110) mg/dL Calcium (8.7-10.3) mg/dL Phosphorus (2.4-5.1) mg/dL Total Protein (6.2-8.2) g/dL Albumin 2.9 L (3.5-5.0) g/dL Albumin/Globulin Ratio (1.60-3.17) Ratio Urine Protein 1+ H (Negative) Urine Glucose (UA) Trace H (Negative) Urine Blood Moderate H (Negative) Ur Leukocyte Esterase Large H (Negative) Urine RBC 115 H (0-5) /hpf Urine WBC 37 H (0-5) /hpf Uric Acid Crystals Few H (None) /hpf Urine Bacteria Rare H (None) /hpf Hyaline Casts 3 H (0-2) /lpf Urine Mucus Moderate H (None) /hpf 01/07/24 01/07/24 01/07/24 Range/Units 04:00 04:00 06:32 RBC 3.93 L (4.40-5.60) X 10*6/uL Hgb 10.9 L (13.0-17.5) gm/dL Hct 34.9 L (39.6-50.0) % MCHC 31.2 L (32.0-37.0) g/dL Neutrophils # (1.3-7.7) k/uL Lymphocytes # 0.74 L (0.90-5.00) X 10*3/uL BUN (9-20) mg/dL BUN/Creatinine Ratio 24.67 H (12.00-20.00) Ratio Glucose 165 H (74-99) mg/dL POC Glucose (mg/dL) 148 H (70-110) mg/dL Calcium 7.9 L (8.7-10.3) mg/dL Phosphorus 2.1 L (2.4-5.1) mg/dL Total Protein 5.7 L (6.2-8.2) g/dL Albumin 2.7 L (3.5-5.0) g/dL Albumin/Globulin Ratio 0.90 L (1.60-3.17) Ratio Urine Protein (Negative) Urine Glucose (UA) (Negative) Urine Blood (Negative) Ur Leukocyte Esterase (Negative) Urine RBC (0-5) /hpf Urine WBC (0-5) /hpf Uric Acid Crystals (None) /hpf Urine Bacteria (None) /hpf Hyaline Casts (0-2) /lpf Urine Mucus (None) /hpf Assessment and Plan (1) Pressure ulcer of sacral region, stage 4 Current Visit: Yes Status: Acute Code(s): L89.154 - PRESSURE ULCER OF SACRAL REGION, STAGE 4 SNOMED Code(s): 26962229312318 (2) Type 2 diabetes mellitus with other skin ulcer Current Visit: Yes Status: Acute Code(s): E11.622 - TYPE 2 DIABETES MELLITUS WITH OTHER SKIN ULCER; L98.499 - NON-PRESSURE CHRONIC ULCER OF SKIN OF SITES W UNSP SEVERITY SNOMED Code(s): 667969736 (3) Parkinsonism, unspecified Current Visit: Yes Status: Acute Code(s): G20.C - PARKINSONISM, UNSPECIFIED SNOMED Code(s): 56439593
[2024-01-07] MEDS: INSULIN ASPART (NovoLOG) 100 UNIT/ML VIAL SQ SCH (12:18)
[2024-01-07 13:04] VITALS: BMI 39.1
[2024-01-07] MEDS: COLLAGENASE 250 UNIT/GM OINTMENT 30 GM TUBE TOPICAL SCH (14:53)
[2024-01-07] MEDS: ACETAMINOPHEN IV (For NPO) 1,000 MG in EMPTY BAG 1 BAG IVPB PRN (14:53)
--- NOTE | 2024-01-07 15:47 | P.GSCN ---
History of Present Illness Consult date: 01/07/24 History of present illness: CHIEF COMPLAINT: Altered mental status HISTORY OF PRESENT ILLNESS: This is a 68-year-old male who presented to the hospital with altered mental status. Patient was sent from the wound care service due to hallucinations and elevated heart rate. Patient with history of Parkinson's and diabetes. Patient has a stage IV decubitus ulcer in which she follows at wound care center. Wound care service would like wound VAC placed after debridement. PAST MEDICAL HISTORY: CKD, parkinsons, neuropathy, Charcot's disease, PT STATES WAS TOLD HAD SILENT NH IN LOWER HALF OF HEART. CONSTANT SINUS PROBLEMS-RUNNY NOSE-CLEAR- PHLEGM IN THROAT-. HARD TO SWALLOW FOOD AT TIMES-TRIES TO DRINK A LOT OF WATER WITH FOOD- HAS HAD UGI- WAS OK-CAUSES PRESSURE IN CHEST AREA WHEN HAS TO EAT FOOD LIKE BREADS. SOB ON EXERTION-TIRES EASILY. WAS TOLD PROBABLY HAS SLEEP APNEA BUT NEVER TESTED. DIVERTICULOSIS. CATARACT LEFT EYE PAST SURGICAL HISTORY: Cholecystectomy, Heart Catheterization, Orthopedic Surgery MEDICATIONS: See below ALLERGIES: See below SOCIAL HISTORY: No illicit drug use. REVIEW OF SYSTEMS: CONSTITUTIONAL: Denies fever or chills. HEENT: Denies blurred vision, vision changes, or eye pain. Denies hemoptysis CARDIOVASCULAR: Denies chest pain or pressure. RESPIRATORY: No shortness of breath. GASTROINTESTINAL: See HPI for pertinent findings HEMATOLOGIC: Denies bleeding disorders. GENITOURINARY: Denies any blood in urine or increased urinary frequency. SKIN: Denies pruitis. Denies rash. PHYSICAL EXAM: VITAL SIGNS: Reviewed GENERAL: no acute distress. ABDOMEN: Soft. Nondistended. Nondistended NEUROLOGIC: Confused SKIN: sacral decubitus ulcer with tunneling and eschar tissue. Foul odor LABORATORY DATA: WBC 8.98 Hgb 10.9 platelets 332 Sodium is 140 potassium is 4.1 creatinine 0.6 IMAGING: ASSESSMENT: 1. Stage IV sacral decubitus ulcer 2. Diabetes mellitus PLAN: -Patient scheduled for debridement of sacral decubitus ulcer tomorrow with Dr. Eric -N.p.o. after midnight -Antibiotics per ID service Physician Jewelry Bearing Maker note has been reviewed by physician. Signing provider agrees with the documented findings, assessment, and plan of care. Past Medical History Past Medical History: Asthma, Coronary Artery Disease (CAD), Diabetes Mellitus, GERD/Reflux, Hearing Disorder / Deafness, Hyperlipidemia, Hypertension, Myocardial Infarction ([place]), Neurologic Disorder, Osteoarthritis (OA), Pneumonia, Sleep Apnea/CPAP/BIPAP Additional Past Medical History / Comment(s): CKD, parkinsons, neuropathy, Charcot's disease, PT STATES WAS TOLD HAD SILENT NH IN LOWER HALF OF HEART. CONSTANT SINUS PROBLEMS-RUNNY NOSE-CLEAR- PHLEGM IN THROAT-. HARD TO SWALLOW FOOD AT TIMES-TRIES TO DRINK A LOT OF WATER WITH FOOD- HAS HAD UGI- WAS OK- CAUSES PRESSURE IN CHEST AREA WHEN HAS TO EAT FOOD LIKE BREADS. SOB ON EXERTION-TIRES EASILY. WAS TOLD PROBABLY HAS SLEEP APNEA BUT NEVER TESTED. DIVERTICULOSIS. CATARACT LEFT EYE Last Myocardial Infarction Date:: UNKNOWN History of Any Multi-Drug Resistant Organisms: MRSA Year Discovered:: 11/2013 MDRO Source:: BACK Past Surgical History: Cholecystectomy, Heart Catheterization, Orthopedic Surgery Additional Past Surgical History / Comment(s): LT SHOULDER SURGERY- 4 PINS IN- INJURY @ WORK. LIPOMA OFF AREA BELOW RT BREAST & RT UPPER THIGH Past Anesthesia/Blood Transfusion Reactions: No Reported Reaction Past Psychological History: Depression Smoking Status: Unknown if ever smoked Past Alcohol Use History: Rare Past Drug Use History: None Reported - Past Family History Father Family Medical History: Cancer, CVA/TIA, Myocardial Infarction ([place]) Additional Family Medical History / Comment(s): CA-VOICE BOX Mother Family Medical History: Cancer Additional Family Medical History / Comment(s): COLON CA Medications and Allergies Home Medications Medication Instructions Recorded Confirmed Type Carbidopa-Levodopa 25-100 mg 1 tab PO Q8H 09/11/19 01/06/24 History [Sinemet 25-100 mg] ALPRAZolam [Xanax] 0.5 mg PO Q8H PRN 01/06/24 01/06/24 History Acetaminophen Tab [Tylenol] 650 mg PO BID 01/06/24 01/06/24 History Acetaminophen Tab [Tylenol] 650 mg PO Q4H PRN 01/06/24 01/06/24 History Active Liquid Protein 30 ml PO DAILY 01/06/24 01/06/24 History Atorvastatin [Lipitor] 10 mg PO HS 01/06/24 01/06/24 History FLUoxetine HCL [PROzac] 10 mg PO DAILY 01/06/24 01/06/24 History Fluticasone Propion/Salmeterol 1 puff PO RT-BID 01/06/24 01/06/24 History [Advair 100-50 Diskus] House Supplement 120 ml PO BID 01/06/24 01/06/24 History INSULIN LISPRO (HumaLOG) [humaLOG] See Protocol SQ ACHS 01/06/24 01/06/24 Histor y Insulin Glargine,Hum.rec.anlog 20 units SQ DAILY 01/06/24 01/06/24 History [Lantus Solostar Pen] Magnesium Hydroxide [Milk of 2,400 mg PO DAILY PRN 01/06/24 01/06/24 History Magnesia] Metoprolol Succinate (ER) [Toprol 100 mg PO DAILY 01/06/24 01/06/24 History Xl] Pimavanserin Tartrate [Nuplazid] 34 mg PO HS 01/06/24 01/06/24 History QUEtiapine [SEROquel] 100 mg PO BID 01/06/24 01/06/24 History Sennosides/Docusate Sodium 2 tab PO DAILY 01/06/24 01/06/24 History [Senna-S 8.6-50 mg Tablet] Tamsulosin HCl [Flomax] 0.4 mg PO DAILY 01/06/24 01/06/24 History Tussin Dm 10 ml PO Q4H PRN 01/06/24 01/06/24 History guaiFENesin 400 mg PO Q4H PRN 01/06/24 01/06/24 History lisinopriL [Zestril] 10 mg PO BID 01/06/24 01/06/24 History traMADol HCL 50 mg PO TID 01/06/24 01/06/24 History Allergies Allergy/AdvReac Type Severity Reaction Status Date / Time Penicillins Allergy Rash/Hives Verified 01/06/24 15:19 Surgical - Exam Vital Signs Temp Pulse Resp BP Pulse Ox 98.6 F 127 H 20 146/72 97 01/06/24 11:31 01/06/24 11:31 01/06/24 11:31 01/06/24 11:31 01/06/24 11:31 Results - Labs 01/07/24 04:00 01/07/24 04:00 Abnormal Lab Results - Last 24 Hours (Table) 0501/07/24 01/07/24 Range/Units 04:00 04:00 06:32 RBC 3.93 L (4.40-5.60) X 10*6/uL Hgb 10.9 L (13.0-17.0) g/dL Hct 34.9 L (39.6-50.0) % MCHC 31.2 L (32.0-37.0) g/dL Lymphocytes # 0.74 L (0.90-5.00) X 10*3/uL BUN/Creatinine Ratio 24.67 H (12.00-20.00) Ratio Glucose 165 H (70-110) mg/dL POC Glucose (mg/dL) 148 H (70-110) mg/dL Calcium 7.9 L (8.7-10.3) mg/dL Phosphorus 2.1 L (2.4-5.1) mg/dL Total Protein 5.7 L (6.2-8.2) g/dL Albumin 2.7 L (3.8-4.9) g/dL Albumin/Globulin Ratio 0.90 L (1.60-3.17) Ratio 01/07/24 Range/Units 11:36 RBC (4.40-5.60) X 10*6/uL Hgb (13.0-17.0) g/dL Hct (39.6-50.0) % MCHC (32.0-37.0) g/dL Lymphocytes # (0.90-5.00) X 10*3/uL BUN/Creatinine Ratio (12.00-20.00) Ratio Glucose (70-110) mg/dL POC Glucose (mg/dL) 172 H (70-110) mg/dL Calcium (8.7-10.3) mg/dL Phosphorus (2.4-5.1) mg/dL Total Protein (6.2-8.2) g/dL Albumin (3.8-4.9) g/dL Albumin/Globulin Ratio (1.60-3.17) Ratio Diabetes panel 01/07/24 Range/Units 04:00 Sodium 140 (135-145) mmol/L Potassium 4.1 (3.5-5.5) mmol/L Chloride 105 (96-109) mmol/L Carbon Dioxide 26.9 (21.6-31.8) mmol/L BUN 14.8 (9.0-27.0) mg/dL Creatinine 0.6 (0.6-1.5) mg/dL Glucose 165 H (70-110) mg/dL Calcium 7.9 L (8.7-10.3) mg/dL AST 21 (14-35) U/L ALT 17 (10-49) U/L Alkaline Phosphatase 100 (41-126) U/L Total Protein 5.7 L (6.2-8.2) g/dL Albumin 2.7 L (3.8-4.9) g/dL Calcium panel 01/07/24 Range/Units 04:00 Calcium 7.9 L (8.7-10.3) mg/dL Phosphorus 2.1 L (2.4-5.1) mg/dL Albumin 2.7 L (3.8-4.9) g/dL Pituitary panel 01/07/24 Range/Units 04:00 Sodium 140 (135-145) mmol/L Potassium 4.1 (3.5-5.5) mmol/L Chloride 105 (96-109) mmol/L Carbon Dioxide 26.9 (21.6-31.8) mmol/L BUN 14.8 (9.0-27.0) mg/dL Creatinine 0.6 (0.6-1.5) mg/dL Glucose 165 H (70-110) mg/dL Calcium 7.9 L (8.7-10.3) mg/dL Adrenal panel 01/07/24 Range/Units 04:00 Sodium 140 (135-145) mmol/L Potassium 4.1 (3.5-5.5) mmol/L Chloride 105 (96-109) mmol/L Carbon Dioxide 26.9 (21.6-31.8) mmol/L BUN 14.8 (9.0-27.0) mg/dL Creatinine 0.6 (0.6-1.5) mg/dL Glucose 165 H (70-110) mg/dL Calcium 7.9 L (8.7-10.3) mg/dL Total Bilirubin 0.3 (0.3-1.2) mg/dL AST 21 (14-35) U/L ALT 17 (10-49) U/L Alkaline Phosphatase 100 (41-126) U/L Total Protein 5.7 L (6.2-8.2) g/dL Albumin 2.7 L (3.8-4.9) g/dL
[2024-01-07 16:46] LABS: Glucose,Whole Blood 142 mg/dL (70-110)
[2024-01-07] MEDS: metroNIDAZOLE-NS PMX 500 MG in SALINE 1 100ML.BAG IVPB SCH (17:28)
[2024-01-07] MEDS: PIPERACILLIN-TAZOBACTAM 3.375 GM in SODIUM CHLORIDE 0.9% 100 ML IVPB SCH (18:30)
[2024-01-07] MEDS: NON FORMULARY DRUG (Pimavanserin Tartrate [Nuplazid] 34 MG Capsule) PO SCH (19:44)
[2024-01-07 20:07] LABS: Glucose,Whole Blood 151 mg/dL (70-110)
[2024-01-07] MEDS: ATORVASTATIN 10 MG TAB PO SCH (21:12)
[2024-01-07] MEDS: HEPARIN SODIUM,PORCINE 5,000 UNIT/ML 1 ML VIAL SQ SCH (21:12)
[2024-01-07] MEDS: HALOPERIDOL LACTATE 5 MG/ML 1 ML VIAL IM STA (21:41)
--- NOTE | 2024-01-07 22:19 | P.CONS ---
History of Present Illness - Reason for Consult Consult date: 01/07/24 Infected sacral wound, AMS Requesting physician: Yesica Urena - Chief Complaint Worsening sacral wound x days - History of Present Illness Patient is a 68-year-old male with a past medical his significant for diabetes mellitus hypertension hyperlipidemia coronary disease NM patient has been brought into the hospital for evaluation of mental status changes ap parently patient was evaluated the wound care center with the patient was noticed to have elevated heart rate and hallucination, apparently the patient did have a pressure ulcer to the sacral area started beginning of October 2023 and apparently continue to get worse for the patient was referred to the [facility] wound care center, patient presented to hospital was afebrile no fever have recorded subsequently patient was tachycardic but not hypotensive or hypoxic no need for supplemental oxygen patient did have a white count of 10.6 with a left shift creatinine 0.73 electrolytes are normal liver enzymes are normal urine has been positive patient was started on Zosyn and vancomycin as well as Flagyl infectious was consulted for further management of antibiotic repeat most information has been obtained from review the chart as the patient himself not a very good historian has been complaining of some discomfort to the affected area but unable to elaborate any further Review of Systems positive points has been mentioned in HPI complete review could not be obtained because of his underlying mental status Past Medical History Past Medical History: Asthma, Coronary Artery Disease (CAD), Diabetes Mellitus, GERD/Reflux, Hearing Disorder / Deafness, Hyperlipidemia, Hypertension, Myocardial Infarction (NM), Neurologic Disorder, Osteoarthritis (OA), Pneumonia, Sleep Apnea/CPAP/BIPAP Additional Past Medical History / Comment(s): CKD, parkinsons, neuropathy, Charcot's disease, PT STATES WAS TOLD HAD SILENT NM IN LOWER HALF OF HEART. CONSTANT SINUS PROBLEMS-RUNNY NOSE-CLEAR- PHLEGM IN THROAT-. HARD TO SWALLOW FOOD AT TIMES-TRIES TO DRINK A LOT OF WATER WITH FOOD- HAS HAD UGI- WAS OK- CAUSES PRESSURE IN CHEST AREA WHEN HAS TO EAT FOOD LIKE BREADS. SOB ON EXERTION-TIRES EASILY. WAS TOLD PROBABLY HAS SLEEP APNEA BUT NEVER TESTED. DIVERTICULOSIS. CATARACT LEFT EYE Last Myocardial Infarction Date:: UNKNOWN History of Any Multi-Drug Resistant Organisms: MRSA Year Discovered:: 11/2013 MDRO Source:: BACK Past Surgical History: Cholecystectomy, Heart Catheterization, Orthopedic Surgery Additional Past Surgical History / Comment(s): LT SHOULDER SURGERY- 4 PINS IN- INJURY @ WORK. LIPOMA OFF AREA BELOW RT BREAST & RT UPPER THIGH Past Anesthesia/Blood Transfusion Reactions: No Reported Reaction Past Psychological History: Depression Smoking Status: Unknown if ever smoked Past Alcohol Use History: Rare Past Drug Use History: None Reported - Past Family History Father Family Medical History: Cancer, CVA/TIA, Myocardial Infarction (NM) Additional Family Medical History / Comment(s): CA-VOICE BOX Mother Family Medical History: Cancer Additional Family Medical History / Comment(s): COLON CA Medications and Allergies Home Medications Medication Instructions Recorded Confirmed Type Carbidopa-Levodopa 25-100 mg 1 tab PO Q8H 09/11/19 01/06/24 History [Sinemet 25-100 mg] Acetaminophen Tab [Tylenol] 650 mg PO Q4H PRN 01/06/24 01/06/24 History Active Liquid Protein 30 ml PO DAILY 01/06/24 01/06/24 History Atorvastatin [Lipitor] 10 mg PO HS 01/06/24 01/06/24 History FLUoxetine HCL [PROzac] 10 mg PO DAILY 01/06/24 01/06/24 History Fluticasone Propion/Salmeterol 1 puff PO RT-BID 01/06/24 01/06/24 History [Advair 100-50 Diskus] House Supplement 120 ml PO BID 01/06/24 01/06/24 History INSULIN LISPRO (HumaLOG) [humaLOG] See Protocol SQ ACHS 01/06/24 01/06/24 History Insulin Glargine,Hum.rec.anlog 20 units SQ DAILY 01/06/24 01/06/24 History [Lantus Solostar Pen] Magnesium Hydroxide [Milk of 2,400 mg PO DAILY PRN 01/06/24 01/06/24 History Magnesia] Metoprolol Succinate (ER) [Toprol 100 mg PO DAILY 01/06/24 01/06/24 History XL] Pimavanserin Tartrate [Nuplazid] 34 mg PO HS 01/06/24 01/06/24 History Sennosides/Docusate Sodium 2 tab PO DAILY 01/06/24 01/06/24 History [Senna-S 8.6-50 mg Tablet] Tamsulosin HCl [Flomax] 0.4 mg PO DAILY 01/06/24 01/06/24 History Tussin Dm 10 ml PO Q4H PRN 01/06/24 01/06/24 History guaiFENesin 400 mg PO Q4H PRN 01/06/24 01/06/24 History lisinopriL [Zestril] 10 mg PO BID 01/06/24 01/06/24 History Collagenase [Santyl Ointment] 1 applic TOPICAL DAILY each 01/13/24 Rx Fluconazole [Diflucan] 100 mg PO DAILY 14 Days #14 tab 01/13/24 Rx Heparin Sodium,Porcine (1 ml) 5,000 unit SQ Q12HR each 01/13/24 Rx [Heparin Sodium] amLODIPine [Norvasc] 10 mg PO DAILY tab 01/13/24 Rx cefTRIAXone [Rocephin] 2 gm IVPB Q24H 42 Days #42 each 01/13/24 Rx metroNIDAZOLE [Flagyl] 500 mg PO TID 42 Days #126 tab 01/13/24 Rx traMADol HCL 50 mg PO TID PRN #8 tab 01/13/24 Rx Allergies Allergy/AdvReac Type Severity Reaction Status Date / Time Penicillins Allergy Rash/Hives Verified 01/06/24 15:19 Physical Exam Vitals: Vital Signs Temp Pulse Pulse Resp BP BP Pulse Ox 01/07/24 13:12 99.9 F H 100 16 130/70 96 01/07/24 08:00 92 18 01/07/24 07:08 98.1 F 92 18 172/85 95 01/07/24 01:09 98.3 F 85 17 112/64 95 01/07/24 00:00 86 18 144/72 94 L 01/06/24 23:00 85 17 148/67 95 01/06/24 21:00 85 19 135/70 94 L 01/06/24 20:00 87 18 118/67 95 01/06/24 19:35 98.5 F 86 18 118/67 94 L 01/06/24 18:50 84 18 118/67 94 L Intake and Output 01/07/24 01/07/24 01/07/24 06:59 14:59 22:59 Other: Voiding Method Indwelling Catheter Indwelling Catheter Weight 113.398 kg 113.398 kg GENERAL DESCRIPTION: Elderly male lying in bed, no distress. No tachypnea or accessory muscle of respiration use. HEENT: Shows Pallor , no scleral icterus. Oral mucous membrane is dry. No pharyngeal erythema or thrush NECK: Trachea central, no thyromegaly. LUNGS: Unlabored breathing. Clear to auscultation anteriorly. No wheeze or crackle. HEART: S1, S2, regular rate and rhythm. No loud murmur ABDOMEN: Soft, no tenderness , guarding or rigidity, no organomegaly EXTREMITIES: No edema of feet. SKIN: Patient did have a unstageable sacral pressure ulcer with necrotic tissue surrounding redness and some foul-smelling NEUROLOGICAL: The patient is lethargic not really good historian orientation could not determine Results CBC & Chem 7: 01/09/24 05:54 01/13/24 04:27 Labs: Abnormal Lab Results - Last 24 Hours (Table) 01/07/24 01/07/24 01/07/24 Range/Units 04:00 04:00 06:32 RBC 3.93 L (4.40-5.60) X 10*6/uL Hgb 10.9 L (13.0-17.0) g/dL Hct 34.9 L (39.6-50.0) % MCHC 31.2 L (32.0-37.0) g/dL Lymphocytes # 0.74 L (0.90-5.00) X 10*3/uL BUN/Creatinine Ratio 24.67 H (12.00-20.00) Ratio Glucose 165 H (70-110) mg/dL POC Glucose (mg/dL) 148 H (70-110) mg/dL Calcium 7.9 L (8.7-10.3) mg/dL Phosphorus 2.1 L (2.4-5.1) mg/dL Total Protein 5.7 L (6.2-8.2) g/dL Albumin 2.7 L (3.8-4.9) g/dL Albumin/Globulin Ratio 0.90 L (1.60-3.17) Ratio 01/07/24 01/07/24 Range/Units 11:36 16:45 RBC (4.40-5.60) X 10*6/uL Hgb (13.0-17.0) g/dL Hct (39.6-50.0) % MCHC (32.0-37.0) g/dL Lymphocytes # (0.90-5.00) X 10*3/uL BUN/Creatinine Ratio (12.00-20.00) Ratio Glucose (70-110) mg/dL POC Glucose (mg/dL) 172 H 142 H (70-110) mg/dL Calcium (8.7-10.3) mg/dL Phosphorus (2.4-5.1) mg/dL Total Protein (6.2-8.2) g/dL Albumin (3.8-4.9) g/dL Albumin/Globulin Ratio (1.60-3.17) Ratio Assessment and Plan (1) Infected decubitus ulcer Status: Acute Code(s): L89.90 - PRESSURE ULCER OF UNSPECIFIED SITE, UNSPECIFIED STAGE; L08.9 - LOCAL INFECTION OF THE SKIN AND SUBCUTANEOUS TISSUE, UNSP SNOMED Code(s): 336640443 (2) Pressure ulcer of sacral region, stage 4 Status: Acute Code(s): L89.154 - PRESSURE ULCER OF SACRAL REGION, STAGE 4 SNOMED Code(s): 58992331870207 (3) Penicillin allergy Status: Acute Code(s): Z88.0 - ALLERGY STATUS TO PENICILLIN SNOMED Code(s): 03479727 Plan: 1patient presented to hospital with infected sacral pressure ulcer to the sacral area stage IV with the patient has for couple of months and apparently failing outpatient therapy no concern for possible deeper infection likely from gram-positive skin jethro gram-negative pressure not entirely excluded 2-patient with a penicillin allergy however has tolerated Zosyn without any problem clinical doubt true penicillin allergy 3-patient to continue with the vancomycin however switch Zosyn to cefepime to decrease risk of nephrotoxicity 4-await surgical debridement and deep culture We will follow on clinical condition and cultures to further adjust medication if needed Thank you for this consultation we will follow the patient along with you Dictation was produced using [employer] dictation software. please excuse any grammatical, word or spelling errors. Time with Patient: Greater than 30
--- NOTE | 2024-01-07 23:52 | HP ---
HISTORY AND PHYSICAL CHIEF COMPLAINT: Change in mental status, fever, and decubitus ulcers. HISTORY OF PRESENT ILLNESS: This is a 68-year-old gentleman, who is an and was brought to the hospital with change in mental status, fever, and as well as significant decubitus ulcer with necrotic areas. The patient is unable to give a coherent history. Most history is taken by my discussion with staff and review of chart. The patient is being admitted for further evaluation and treatment. There is no history of any headache, loss of consciousness, or seizures. PAST MEDICAL HISTORY: Reviewed include diabetes mellitus, hypertension, hyperlipidemia, neurological disorder, Parkinson's, Charcot disease. Rest of the history and rest of the chart is also reviewed. HOME MEDICATIONS: Reviewed include Xanax. Rest of the medications and doses are reviewed. ALLERGIES: Penicillin. FAMILY HISTORY: History of CVA, TIA, myocardial infarction. Rest of the history and rest of the chart is also reviewed. REVIEW OF SYSTEMS: Could not be taken because of change in mental status. PHYSICAL EXAMINATION: VITAL SIGNS: Pulse 92, blood pressure 172/84, respirations 18. HEENT: Conjunctivae normal. NECK: No JVD. CARDIOVASCULAR: S1, S2. RESPIRATIONS: A few scattered rhonchi and crackles. ABDOMEN: Soft. NERVOUS SYSTEM: Diffusely weak. SKIN: Significant decubitus ulcer, possibly stage IV with necrotic areas and foul- smelling also present. JOINTS: No active deforming arthropathy. LABORATORY DATA: WBC 8.9. ASSESSMENT: 1. Significant decubitus ulcer with necrotic areas with failure of outpatient treatment. 2. Change in mental status, metabolic encephalopathy. 3. Asthma. 4. Coronary artery disease. 5. Diabetes mellitus, type 2. 6. Hypertension. 7. Hyperlipidemia. 8. History of Parkinson's. 9. History of Charcot disease. 10.History of Methicillin-resistant Staphylococcus aureus. RECOMMENDATIONS: Recommend to continue current medications and continue symptomatic treatment. I would recommend broad-spectrum IV antibiotics, Zosyn, vancomycin and Flagyl and Infectious Disease evaluation, cultures. Surgical evaluation for possible debridement and DVT prophylaxis. Resume home medications once they are confirmed. I would also recommend CT scan of the brain for completion of the workup. Prognosis guarded. Further recommendations to follow. MMODL / IJN: [id number] / [facility]US[facility]
[2024-01-08] MEDS: CEFEPIME 2 GM in SODIUM CHLORIDE 0.9% 100 ML IVPB SCH (00:16)
[2024-01-08 06:00] LABS: Glucose,Whole Blood 192 mg/dL (70-110)
[2024-01-08 08:48] LABS: Basophils # (A) 0.02 X 10*3/uL (0.00-0.10); Basophils % (A) 0.2 %; Eosinophils # (A) 0.15 X 10*3/uL (0.04-0.35); Eosinophils % (A) 1.7 %; HCT 35.1 % (39.6-50.0); HGB 10.9 g/dL (13.0-17.0); Lymphocytes # (A) 0.89 X 10*3/uL (0.90-5.00); Lymphocytes % (A) 10.2 %; MCH 27.1 pg (27.0-32.0); MCHC 31.1 g/dL (32.0-37.0); MCV 87.3 FL (80.0-97.0); Mean Platelet Volume 9.3 FL (9.5-12.2); Monocytes # (A) 0.62 X 10*3/uL (0.20-1.00); Monocytes % (A) 7.1 %; NRBC Per 100 WBC 0 X 10*3/uL (0.00-0.01); Neutrophils # (A) 7.01 X 10*3/uL (1.80-7.70); Neutrophils % (A) 80.6 %; Platelet Count 349 X 10*3/uL (140-440); RBC 4.02 X 10*6/uL (4.40-5.60); RDW 13.5 % (11.5-14.5); WBC 8.71 X 10*3/uL (4.50-10.00)
[2024-01-08 08:50] LABS: Glucose,Whole Blood 169 mg/dL (70-110)
[2024-01-08 08:54] LABS: Blood Urea Nitrogen 9.3 mg/dL (9.0-27.0); Carbon Dioxide 25.6 mmol/L (21.6-31.8); Chloride 104 mmol/L (96-109); Glucose 160 mg/dL (70-110); Potassium 4.1 mmol/L (3.5-5.5); Sodium 141 mmol/L (135-145)
[2024-01-08] MEDS: LORazepam 1 MG/0.5 ML VIAL IV PRN (09:44)
[2024-01-08 11:28] LABS: Glucose,Whole Blood 135 mg/dL (70-110)
--- NOTE | 2024-01-08 15:13 | PN ---
PROGRESS NOTE DATE OF SERVICE: 01/08/2024 SUBJECTIVE: This is a 68-year-old gentleman, who was admitted with decubitus ulcer necrosis and multiple medical issues, being closely monitored at this time. Debridement is being planned today. The patient had foul-smelling discharge from the necrotic wound. PAST MEDICAL HISTORY: Could not be taken. REVIEW OF SYSTEMS: Could not be taken. CURRENT MEDICATIONS: Reviewed include Symbicort, dose and rest of medications noted. PHYSICAL EXAMINATION: GENERAL: The patient is stuporous. VITAL SIGNS: Pulse is 103, blood pressure 180/70, and respirations 18. CHEST: Scattered rhonchi and crackles. ABDOMEN: Soft. Extension of the back and significant decubitus ulcer with foul- smelling discharge present. LABORATORY DATA: Reviewed. ASSESSMENT: 1. Significant decubitus ulcer stage IV with possible necrotic areas with failure of outpatient treatment. 2. Change in mental status, acute metabolic encephalopathy. 3. Asthma. 4. CAD. 5. Diabetes mellitus type 2. 6. Hypertension. 7. Hyperlipidemia. 8. History of Parkinson's. 9. History of Charcot disease. 10.History of MRSA. RECOMMENDATIONS AND DISCUSSION: I recommend to continue current management and continue broad-spectrum IV antibiotics. Await cultures. Closely follow. Debridement today per Surgery. CAT scan of the brain reviewed. We will continue with DVT prophylaxis. Repeat labs. Guarded prognosis. Further recommendations to follow. See orders for details. MMODL / IJN: [id number] /
--- NOTE | 2024-01-08 15:29 | CT ---
EXAMINATION TYPE: CT brain wo con DATE OF EXAM: 01/08/2024 COMPARISON: None HISTORY: Dementia CT DLP: 1109.[address] of the brain was performed. The ventricles, basal cisterns and sulci overlying the cerebral convexities demonstrate mild enlargem ent. There is no evidence for intracranial hemorrhage or sulcal effacement. There is decreased attenuation about the periventricular white matter and deep white matter of both c erebral hemispheres, compatible with chronic small vessel ischemia. Differential diagnosis does inclu de demyelination. No mass effects are seen.No midline shift. Osseous calvarium is intact. If symptoms persist consider MRI. IMPRESSION: 1. Age related atrophic and chronic small vessel ischemic change without acute intracranial process s een at this time.
[2024-01-08 16:20] LABS: Glucose,Whole Blood 92 mg/dL (70-110)
[2024-01-08] MEDS: LACTATED RINGERS 1,000 ML IV ONE (16:29)
[2024-01-08] MEDS: ONDANSETRON 4 MG/2 ML VIAL IVP PRN (16:33)
[2024-01-08] MEDS ORDERED: PHENYLEPHRINE-0.9% NACL SYG 1,000 MCG/10 ML SYRINGE ONE (17:01)
[2024-01-08] MEDS ORDERED: ROCURONIUM 10 MG/ML (5 ML VIAL) IV ONE (17:01)
[2024-01-08] MEDS ORDERED: ePHEDrine 50 MG/ML 1 ML VIAL ONE (17:01)
[2024-01-08] MEDS ORDERED: LIDOCAINE 1% INJ 10MG/ML (20 ML MDV) ONE (17:01)
[2024-01-08] MEDS ORDERED: fentaNYL (PF) 50 MCG/ML 2 ML AMP ONE (17:01)
[2024-01-08] MEDS ORDERED: PROPOFOL 10 MG/ML 20 ML VIAL IV ONE (17:01)
[2024-01-08] MEDS ORDERED: NEOSTIGMINE 1 MG/ML 10 ML VIAL ONE (17:01)
[2024-01-08] MEDS ORDERED: GLYCOPYRROLATE 0.2 MG/ML 2 ML VIAL ONE (17:01)
[2024-01-08] MEDS: LIDOCAINE 1%-EPI 1:100,000 20 ML VIAL SQ ONE (17:39)
--- NOTE | 2024-01-08 17:48 | P.OP ---
Date of Procedure: 01/08/24 Preoperative Diagnosis: sacral decubitus ulcer Postoperative Diagnosis: sacral decubitus ulcer Procedure(s) Performed: debridement of sacral decubitus ulcer of necrotic skin and fat and muscle Anesthesia: MISSAEL Surgeon: Jhonatan Eric Pathology: other (decubitus ulcer) Condition: stable Disposition: PACU Operative Findings: ulcer measurements 8 x 6 x 6 cm Description of Procedure: the patient's placed on the operative table in the supine position. He received general endotracheal tube anesthesia. His then placed in the lateral position. His sacral decub ulcer was prepped and draped usual sterile fashion. There was necrotic skin muscle flap. Using a 10 blade the decubitus ulcer was sharply debrided. Then using electrocautery the specimen was further dissected and sent to pathology. He was achieved with left cautery. The wound was irrigated. The wound was then packed with dry Kerlix. Patient top she will. He was sent to recovery room stable condition.
[2024-01-08 18:31] LABS: Glucose,Whole Blood 87 mg/dL (70-110)
[2024-01-08 22:30] LABS: Glucose,Whole Blood 85 mg/dL (70-110)
[2024-01-08] MEDS: HALOPERIDOL LACTATE 5 MG/ML 1 ML VIAL IM STA (23:42)
[2024-01-09] MEDS: VANCOMYCIN TROUGH DUE 1 EACH MISC MISCELLANE ONE (06:48)
[2024-01-09 08:44] LABS: Basophils # (A) 0.03 X 10*3/uL (0.00-0.10); Basophils % (A) 0.4 %; Eosinophils # (A) 0.24 X 10*3/uL (0.04-0.35); Eosinophils % (A) 2.9 %; HCT 35.2 % (39.6-50.0); HGB 11.1 g/dL (13.0-17.0); Lymphocytes # (A) 0.79 X 10*3/uL (0.90-5.00); Lymphocytes % (A) 9.4 %; MCH 27.2 pg (27.0-32.0); MCHC 31.5 g/dL (32.0-37.0); MCV 86.3 FL (80.0-97.0); Mean Platelet Volume 9.5 FL (9.5-12.2); NRBC Per 100 WBC 0 X 10*3/uL (0.00-0.01); Neutrophils # (A) 6.77 X 10*3/uL (1.80-7.70); Neutrophils % (A) 80.8 %; Platelet Count 351 X 10*3/uL (140-440); RBC 4.08 X 10*6/uL (4.40-5.60); RDW 13.6 % (11.5-14.5); WBC 8.37 X 10*3/uL (4.50-10.00)
[2024-01-09 09:14] LABS: BUN/Creat Ratio 12.71 Ratio (12.00-20.00); Blood Urea Nitrogen 8.9 mg/dL (9.0-27.0); Calcium 7.9 mg/dL (8.7-10.3); Carbon Dioxide 25.9 mmol/L (21.6-31.8); Chloride 106 mmol/L (96-109); Glucose 108 mg/dL (70-110); Potassium 3.7 mmol/L (3.5-5.5); Sodium 141 mmol/L (135-145)
[2024-01-09 11:01] LABS: Glucose,Whole Blood 131 mg/dL (70-110)
--- NOTE | 2024-01-09 11:57 | P.PN ---
Subjective Progress Note Date: 01/09/24 CHIEF COMPLAINT: sacral decubitus ulcer HISTORY OF PRESENT ILLNESS: Postop day #1 status post debridement of sacral decubitus ulcer of necrotic skin and fat and muscle. Patient has no new complaints. Afebrile. WBC 8.37 Hgb 11.1 PHYSICAL EXAM: VITAL SIGNS: Reviewed. GENERAL: no acute distress. NEUROLOGIC: Awake. Confused ASSESSMENT: 1. Sacral decubitus ulcer status post debridement PLAN: -Continue local wound care -Continue antibiotics per ID service -Continue offloading Physician Analytical Consultant note has been reviewed by physician. Signing provider agrees with the documented findings, assessment, and plan of care. Objective - Vital Signs Vital signs: Vital Signs Temp 97.8 F 01/09/24 07:41 Pulse 99 01/09/24 07:41 Resp 18 01/09/24 07:41 BP 153/75 01/09/24 07:41 Pulse Ox 94 L 01/09/24 07:41 FiO2 Intake & Output 01/08/24 01/09/24 01/09/24 18:59 06:59 18:59 Intake Total 750 Output Total 610 400 Balance 140 -400 Intake: IV 750 Output: Urine 600 400 Estimated Blood Loss 10 Other: Voiding Method Indwelling Catheter Indwelling Catheter Indwelling Catheter - Labs CBC & Chem 7: 01/09/24 05:54 01/09/24 05:54 Labs: Abnormal Lab Results - Last 24 Hours (Table) 01/09/24 01/09/24 01/09/24 Range/Units 05:54 05:54 10:59 RBC 4.08 L (4.40-5.60) X 10*6/uL Hgb 11.1 L (13.0-17.0) g/dL Hct 35.2 L (39.6-50.0) % MCHC 31.5 L (32.0-37.0) g/dL Lymphocytes # 0.79 L (0.90-5.00) X 10*3/uL BUN 8.9 L (9.0-27.0) mg/dL POC Glucose (mg/dL) 131 H (70-110) mg/dL Calcium 7.9 L (8.7-10.3) mg/dL Microbiology - Last 24 Hours (Table) 01/06/24 17:03 Blood Culture - Preliminary Blood
--- NOTE | 2024-01-09 14:05 | CT ---
EXAMINATION TYPE: CT sacrum wo con DATE OF EXAM: 01/09/2024 COMPARISON: None HISTORY: Sacral ulcer. CT DLP: 1042.2 mGycm Automated exposure control for dose reduction was used. Unenhanced CT of the sacrum was performed in the bony and soft tissue window settings. FINDINGS: There is a soft tissue ulcer measuring 7 cm in length by 2.3 cm to the left of midline extending from approximately S4 through the coccygeal segments. A portion of the S5 segment is not covered by tissu e. No bony destructive process is seen at this time. No additional ulcerations seen. No evidence of f racture. Pillai catheter is noted in place within the urinary bladder. Fat-containing inguinal hernias seen bilaterally. IMPRESSION: SOFT TISSUE ULCERATION DISCUSSED ABOVE WITHOUT EVIDENCE FOR OSTEOMYELITIS AT THIS POINT IN TIME.
--- NOTE | 2024-01-09 15:44 | P.PN ---
Subjective Progress Note Date: 01/08/24 Principal diagnosis: Reason for follow-up infected sacral pressure ulcer Patient is a 68-year-old male with a past medical his significant for diabetes mellitus hypertension hyperlipidemia coronary disease SD patient has been brought into the hospital for evaluation of mental status changes, patient was noticed to have an infected sacral pressure ulcer prompting this consultation On today's evaluation that is 01/08/2024,the patient remains to be afebrile, patient is on room air not requiring supplemental oxygen and patient does not seem to be any distress patient is currently sleepy lethargic unable to provide any history no vomiting or diarrhea has been reported by the nursing staff Patient white count is 8.7, creatinine 0.6 Objective - Vital Signs Vital signs: Vital Signs Temp 97.5 F L 01/08/24 07:20 Pulse 103 H 01/08/24 08:00 Resp 20 01/08/24 08:00 BP 180/75 01/08/24 07:20 Pulse Ox 95 01/08/24 09:15 FiO2 Intake & Output 01/07/24 01/08/24 01/08/24 18:59 06:59 18:59 Output Total 800 800 Balance -800 -800 Weight 113.398 kg Output: Urine 800 800 Other: Voiding Method Indwelling Catheter Indwelling Catheter Indwelling Catheter - Exam GENERAL DESCRIPTION: An elderly male lying in bed in no distress RESPIRATORY SYSTEM: Unlabored breathing , decreased breath sounds at bases HEART: S1 S2 regular rate and rhythm , ABDOMEN: Soft , no tenderness EXTREMITIES: No edema feet - Labs CBC & Chem 7: 01/09/24 05:54 01/09/24 05:54 Labs: Abnormal Lab Results - Last 24 Hours (Table) 01/07/24 01/07/24 01/08/24 Range/Units 16:45 20:05 04:05 RBC (4.40-5.60) X 10*6/uL Hgb (13.0-17.0) g/dL Hct (39.6-50.0) % MCHC (32.0-37.0) g/dL MPV (9.5-12.2) FL Lymphocytes # (0.90-5.00) X 10*3/uL Glucose (70-110) mg/dL POC Glucose (mg/dL) 142 H 151 H (70-110) mg/dL Hemoglobin A1c 8.8 H (<=6.0) % Calcium (8.7-10.3) mg/dL 01/08/24 01/08/24 01/08/24 Range/Units 04:05 04:05 05:58 RBC 4.02 L (4.40-5.60) X 10*6/uL Hgb 10.9 L (13.0-17.0) g/dL Hct 35.1 L (39.6-50.0) % MCHC 31.1 L (32.0-37.0) g/dL MPV 9.3 L (9.5-12.2) FL Lymphocytes # 0.89 L (0.90-5.00) X 10*3/uL Glucose 160 H (70-110) mg/dL POC Glucose (mg/dL) 192 H (70-110) mg/dL Hemoglobin A1c (<=6.0) % Calcium 8.0 L (8.7-10.3) mg/dL 01/08/24 01/08/24 Range/Units 08:46 11:27 RBC (4.40-5.60) X 10*6/uL Hgb (13.0-17.0) g/dL Hct (39.6-50.0) % MCHC (32.0-37.0) g/dL MPV (9.5-12.2) FL Lymphocytes # (0.90-5.00) X 10*3/uL Glucose (70-110) mg/dL POC Glucose (mg/dL) 169 H 135 H (70-110) mg/dL Hemoglobin A1c (<=6.0) % Calcium (8.7-10.3) mg/dL Microbiology - Last 24 Hours (Table) 01/06/24 17:03 Blood Culture - Preliminary Blood Assessment and Plan (1) Infected decubitus ulcer Current Visit: Yes Status: Acute Code(s): L89.90 - PRESSURE ULCER OF UNSPECIFIED SITE, UNSPECIFIED STAGE; L08.9 - LOCAL INFECTION OF THE SKIN AND SUBCUTANEOUS TISSUE, UNSP SNOMED Code(s): 772923431 (2) Pressure ulcer of sacral region, stage 4 Current Visit: Yes Status: Acute Code(s): L89.154 - PRESSURE ULCER OF SACRAL REGION, STAGE 4 SNOMED Code(s): 52981500116038 (3) Penicillin allergy Current Visit: Yes Status: Acute Code(s): Z88.0 - ALLERGY STATUS TO PENICILLIN SNOMED Code(s): 85811623 Plan: 1patient presented to hospital with infected sacral pressure ulcer to the sacral area stage IV with the patient has for couple of months and apparently failing outpatient therapy no concern for possible deeper infection likely from gram-positive skin jethro gram-negative pressure not entirely excluded 2-patient with a penicillin allergy however has tolerated Zosyn without any problem clinical doubt true penicillin allergy 3-patient to continue with the vancomycin and cefepime, currently waiting for surgical debridement nursing staff has been advised to make sure cultures obtained at the time of debridement and drainage Dictation was produced using [employer] dictation software. please excuse any grammatical, word or spelling errors. Time with Patient: Less than 30
--- NOTE | 2024-01-09 15:45 | P.PN ---
Subjective Progress Note Date: 01/09/24 Principal diagnosis: Reason for follow-up infected sacral pressure ulcer Patient is a 68-year-old male with a past medical his significant for diabetes mellitus hypertension hyperlipidemia coronary disease [place] patient has been brought into the hospital for evaluation of mental status changes, patient was noticed to have an infected sacral pressure ulcer prompting this consultation.Patient is status post surgical debridement of his sacral pressure ulcer complicated by surgery on 01/08/2024 no OR cultures were done On today's evaluation 01/09/2024, the patient continues to be afebrile, the patient is on room air and breathing comfortably, the Pt is slightly more awake alert today denies any chest pain no cough no worsening pedal sacral wound and no diarrhea was reported. Patient did have a white count of 8.37, creatinine 0.7 Objective - Vital Signs Vital signs: Vital Signs Temp 97.8 F 01/09/24 07:41 Pulse 99 01/09/24 07:41 Resp 18 01/09/24 07:41 BP 153/75 01/09/24 07:41 Pulse Ox 94 L 01/09/24 07:41 FiO2 Intake & Output 01/08/24 01/09/24 01/09/24 18:59 06:59 18:59 Intake Total 750 Output Total 610 400 Balance 140 -400 Intake: IV 750 Output: Urine 600 400 Estimated Blood Loss 10 Other: Voiding Method Indwelling Catheter Indwelling Catheter Indwelling Catheter - Exam GENERAL DESCRIPTION: An elderly male lying in bed in no distress RESPIRATORY SYSTEM: Unlabored breathing , decreased breath sounds at bases HEART: S1 S2 regular rate and rhythm , ABDOMEN: Soft , no tenderness Patient did have a stage IV sacral ulcer did have a lot of burnout tissue from cauterization yesterday however bone was palpable - Labs CBC & Chem 7: 01/09/24 05:54 01/09/24 05:54 Labs: Abnormal Lab Results - Last 24 Hours (Table) 01/08/24 01/09/24 01/09/24 Range/Units 11:27 05:54 05:54 RBC 4.08 L (4.40-5.60) X 10*6/uL Hgb 11.1 L (13.0-17.0) g/dL Hct 35.2 L (39.6-50.0) % MCHC 31.5 L (32.0-37.0) g/dL Lymphocytes # 0.79 L (0.90-5.00) X 10*3/uL BUN 8.9 L (9.0-27.0) mg/dL POC Glucose (mg/dL) 135 H (70-110) mg/dL Calcium 7.9 L (8.7-10.3) mg/dL 01/09/24 Range/Units 10:59 RBC (4.40-5.60) X 10*6/uL Hgb (13.0-17.0) g/dL Hct (39.6-50.0) % MCHC (32.0-37.0) g/dL Lymphocytes # (0.90-5.00) X 10*3/uL BUN (9.0-27.0) mg/dL POC Glucose (mg/dL) 131 H (70-110) mg/dL Calcium (8.7-10.3) mg/dL Microbiology - Last 24 Hours (Table) 01/06/24 17:03 Blood Culture - Preliminary Blood Assessment and Plan (1) Infected decubitus ulcer Current Visit: Yes Status: Acute Code(s): L89.90 - PRESSURE ULCER OF UNSPECIFIED SITE, UNSPECIFIED STAGE; L08.9 - LOCAL INFECTION OF THE SKIN AND SUBCUTANEOUS TISSUE, UNSP SNOMED Code(s): 612528895 (2) Penicillin allergy Current Visit: Yes Status: Acute Code(s): Z88.0 - ALLERGY STATUS TO PENICILLIN SNOMED Code(s): 26217073 (3) Pressure ulcer of sacral region, stage 4 Current Visit: Yes Status: Acute Code(s): L89.154 - PRESSURE ULCER OF SACRAL REGION, STAGE 4 SNOMED Code(s): 26499013687674 Plan: 1patient presented to hospital with infected sacral pressure ulcer to the sacral area stage IV with the patient has for couple of months and apparently failing outpatient therapy no concern for possible deeper infection likely from gram-positive skin jethro gram-negative pressure not entirely excluded 2-patient with a penicillin allergy however has tolerated Zosyn without any problem clinical doubt true penicillin allergy 3-patient is status post surgical debridement unfortunately no cultures were done patient did have a deep wound and there was concern from 1 palpable we will check a CT of the sacrum inflammatory markers will need culture once the wound is clean off from all this cauterized tissue for now continue with vancomycin and cefepime and Flagyl Dictation was produced using [employer] dictation software. please excuse any grammatical, word or spelling errors. Time with Patient: Less than 30
[2024-01-09 16:12] LABS: Glucose,Whole Blood 105 mg/dL (70-110)
[2024-01-09 20:11] LABS: Glucose,Whole Blood 98 mg/dL (70-110)
--- NOTE | 2024-01-10 06:49 | P.PN ---
Subjective Progress Note Date: 01/09/24 Patient is evaluated today on the medical floor. Postoperative day #1 surgical debridement of the stage IV sacral decubitus ulceration. Patient is scheduled to undergo CT of his sacrum today. Review of Systems Constitutional: Denied any fatigue denied any fever. Cardio vascular: denied any chest pain, palpitations Gastrointestinal: denied any nausea, vomiting, diarrhea Pulmonary: Denied any shortness of breath cough Neurologic denied any new focal deficits All inpatient medications were reviewed and appropriate changes in these medications as dictated in the interval history and assessment and plan. PHYSICAL EXAMINATION: GENERAL: The patient is alert and oriented x3, not in any acute distress. Well developed, well nourished. HEENT: Pupils are round and equally reacting to light. EOMI. No scleral icterus. No conjunctival pallor. Normocephalic, atraumatic. No pharyngeal erythema. No thyromegaly. CARDIOVASCULAR: S1 and S2 present. No murmurs, rubs, or gallops. PULMONARY: Chest is clear to auscultation, no wheezing or crackles. ABDOMEN: Soft, nontender, nondistended, normoactive bowel sounds. No palpable organomegaly. MUSCULOSKELETAL: No joint swelling or deformity. EXTREMITIES: No cyanosis, clubbing, or pedal edema. NEUROLOGICAL: Gross neurological examination did not reveal any focal deficits. SKIN: No rashes. Stage IV decubitus ulceration. Assessment and Plan Decubitus ulceration stage IV sacrum with failure of outpatient treatment currently on course of IV antibiotics, ID following. Status post debridement Altered mental status due to acute metabolic encephalopathy with underlying dementia Hx of asthma with no acute exacerbation Diabetes mellitus type 2 continue accuechecks ACHS and sliding scale insulin Hypertension maintained on lisinopril Hx coronary artery disease Parkinsons on cinemet Charcot foot History of MRSA GI prophylaxis DVT prophylaxis Full Code Continue antibiotics with IV cefepime, metronidazole and IV vancomycin. Cultures pending. ID following. Local wound care with santyl. Continue hydration. Repeat labs in the AM. The impression and plan of care has been dictated by Holly Bojorquez Nurse Practitioner as directed. Dr. Gerson MD I have performed a history and physical examination and medical decision making of this patient, discussed the same with the dictator, and agree with the dictators assessment and plan as written, documented as a scribe. Based on total visit time, I have performed more than 50% of this visit. Objective - Vital Signs Vital signs: Vital Signs Temp 99.1 F 01/09/24 19:46 Pulse 93 01/09/24 19:46 Resp 20 01/09/24 19:46 BP 157/80 01/09/24 19:46 Pulse Ox 93 L 01/09/24 19:46 FiO2 Intake & Output 01/09/24 01/09/24 01/10/24 06:59 18:59 06:59 Output Total 400 300 Balance -400 -300 Output: Urine 400 300 Other: Voiding Method Indwelling Catheter Indwelling Catheter - Labs CBC & Chem 7: 01/09/24 05:54 01/09/24 05:54 Labs: Abnormal Lab Results - Last 24 Hours (Table) 01/09/24 01/09/24 01/09/24 Range/Units 05:54 05:54 10:59 RBC 4.08 L (4.40-5.60) X 10*6/uL Hgb 11.1 L (13.0-17.0) g/dL Hct 35.2 L (39.6-50.0) % MCHC 31.5 L (32.0-37.0) g/dL Lymphocytes # 0.79 L (0.90-5.00) X 10*3/uL BUN 8.9 L (9.0-27.0) mg/dL POC Glucose (mg/dL) 131 H (70-110) mg/dL Calcium 7.9 L (8.7-10.3) mg/dL Microbiology - Last 24 Hours (Table) 01/06/24 17:03 Blood Culture - Preliminary Blood Assessment and Plan Time with Patient: Less than 30
[2024-01-10 08:19] LABS: African American GFR (CKD) >90 (>60 ml/min/1.73 sqM); Anion Gap 2 mmol/L; Blood Urea Nitrogen 7 mg/dL (9-20); Calcium 7.7 mg/dL (8.4-10.2); Carbon Dioxide 27 mmol/L (22-30); Chloride 108 mmol/L (98-107); Glucose 129 mg/dL (74-99); Non-African American GFR(CKD) >90 (>60 ml/min/1.73 sqM); Potassium 3.1 mmol/L (3.5-5.1); Sodium 137 mmol/L (137-145)
[2024-01-10] MEDS ORDERED: POTASSIUM CHLORIDE ER 20 MEQ TAB.ER PO SCH (10:00)
[2024-01-10] MEDS ORDERED: POTASSIUM CHLORIDE 20 MEQ in SODIUM CHLORIDE 0.9% 100 ML IVPB SCH (11:00)
[2024-01-10 11:16] LABS: Glucose,Whole Blood 166 mg/dL (70-110)
[2024-01-10] MEDS: POTASSIUM CHLORIDE 20 MEQ in WATER FOR INJECTION 1 100ML.BAG IVPB SCH (12:37)
--- NOTE | 2024-01-10 13:24 | P.PN ---
Subjective Progress Note Date: 01/10/24 CHIEF COMPLAINT: sacral decubitus ulcer HISTORY OF PRESENT ILLNESS: Postop day #2 status post debridement of sacral decubitus ulcer of necrotic skin and fat and muscle. Patient has no new complaints. Afebrile. WBC 8.37 PHYSICAL EXAM: VITAL SIGNS: Reviewed. GENERAL: no acute distress. NEUROLOGIC: Awake. Confused ASSESSMENT: 1. Sacral decubitus ulcer status post debridement PLAN: -Continue local wound care -Continue antibiotics per ID service -Continue offloading -Patient followed by infectious disease and wound care service. Physician Philosophy Instructor note has been reviewed by physician. Signing provider agrees with the documented findings, assessment, and plan of care. Objective - Vital Signs Vital signs: Vital Signs Temp 98.0 F 01/10/24 07:33 Pulse 98 01/10/24 07:33 Resp 18 01/10/24 07:33 BP 175/90 01/10/24 07:33 Pulse Ox 94 L 01/10/24 07:33 FiO2 Intake & Output 01/09/24 01/10/24 01/10/24 18:59 06:59 18:59 Output Total 091 480 0352 Balance -300 -400 -1000 Output: Urine 817 190 1750 Other: Voiding Method Indwelling Catheter Indwelling Catheter Indwelling Catheter - Labs CBC & Chem 7: 01/09/24 05:54 01/10/24 07:27 Labs: Abnormal Lab Results - Last 24 Hours (Table) 01/09/24 01/10/24 01/10/24 Range/Units 05:54 07:27 11:15 Potassium 3.1 L (3.5-5.1) mmol/L Chloride 108 H (98-107) mmol/L BUN 7 L (9-20) mg/dL Creatinine 0.60 L (0.66-1.25) mg/dL Glucose 129 H (74-99) mg/dL POC Glucose (mg/dL) 166 H (70-110) mg/dL Calcium 7.7 L (8.4-10.2) mg/dL C-Reactive Protein 15.80 H (0.00-0.80) mg/dL Microbiology - Last 24 Hours (Table) 01/06/24 17:03 Blood Culture - Preliminary Blood
--- NOTE | 2024-01-10 13:31 | P.PN ---
Subjective Progress Note Date: 01/10/24 Principal diagnosis: Reason for follow-up infected sacral pressure ulcer Patient is a 68-year-old male with a past medical his significant for diabetes mellitus hypertension hyperlipidemia coronary disease [place] patient has been brought into the hospital for evaluation of mental status changes, patient was noticed to have an infected sacral pressure ulcer prompting this consultation.Patient is status post surgical debridement of his sacral pressure ulcer complicated by surgery on 01/08/2024 no OR cultures were done On today's evaluation 01/10/2024, Patient is afebrile patient is currently on room air and breathing comfortably no distress no vomiting diarrhea or any other changes reported by nursing staff patient himself not a very good historian. Patient did have a creatinine 0.60 no CBC was done today blood cultures so far negative CT abdominal pelvis did not show any destructive changes to the sacrum however there was an area of exposed bones clinically compatible with osteomyelitis Objective - Vital Signs Vital signs: Vital Signs Temp 98.0 F 01/10/24 07:33 Pulse 98 01/10/24 07:33 Resp 18 01/10/24 07:33 BP 175/90 01/10/24 07:33 Pulse Ox 94 L 01/10/24 07:33 FiO2 Intake & Output 01/09/24 01/10/24 01/10/24 18:59 06:59 18:59 Output Total 937 298 2303 Balance -300 -400 -1000 Output: Urine 147 950 3867 Other: Voiding Method Indwelling Catheter Indwelling Catheter Indwelling Catheter - Exam GENERAL DESCRIPTION: An elderly male lying in bed in no distress RESPIRATORY SYSTEM: Unlabored breathing , decreased breath sounds at bases HEART: S1 S2 regular rate and rhythm , ABDOMEN: Soft , no tenderness Patient did have a stage IV sacral ulcer wound base was clean wound is palpable cultures obtained - Labs CBC & Chem 7: 01/09/24 05:54 01/10/24 07:27 Labs: Abnormal Lab Results - Last 24 Hours (Table) 01/09/24 01/10/24 01/10/24 Range/Units 05:54 07:27 11:15 Potassium 3.1 L (3.5-5.1) mmol/L Chloride 108 H (98-107) mmol/L BUN 7 L (9-20) mg/dL Creatinine 0.60 L (0.66-1.25) mg/dL Glucose 129 H (74-99) mg/dL POC Glucose (mg/dL) 166 H (70-110) mg/dL Calcium 7.7 L (8.4-10.2) mg/dL C-Reactive Protein 15.80 H (0.00-0.80) mg/dL Microbiology - Last 24 Hours (Table) 01/06/24 17:03 Blood Culture - Preliminary Blood Assessment and Plan (1) Infected decubitus ulcer Current Visit: Yes Status: Acute Code(s): L89.90 - PRESSURE ULCER OF UNSPECIFIED SITE, UNSPECIFIED STAGE; L08.9 - LOCAL INFECTION OF THE SKIN AND SUBCUTANEOUS TISSUE, UNSP SNOMED Code(s): 523086476 (2) Penicillin allergy Current Visit: Yes Status: Acute Code(s): Z88.0 - ALLERGY STATUS TO PENICILLIN SNOMED Code(s): 19434819 (3) Pressure ulcer of sacral region, stage 4 Current Visit: Yes Status: Acute Code(s): L89.154 - PRESSURE ULCER OF SACRAL REGION, STAGE 4 SNOMED Code(s): 37275257922196 Plan: 1patient presented to hospital with infected sacral pressure ulcer to the sacral area stage IV with the patient has for couple of months and apparently failing outpatient therapy no concern for possible deeper infection likely from gram-positive skin jethro gram-negative pressure not entirely excluded 2-patient with a penicillin allergy however has tolerated Zosyn without any problem clinical doubt true penicillin allergy 3-patient is status post surgical debridement unfortunately no cultures were done, patient did have a CT of sacrum no bony destruction however there is exposed wound with a clinical diagnosis of osteomyelitis culture has been obtained today that will determine his discharge antibiotics 4-for now continue with vancomycin and cefepime and Flagyl Dictation was produced using [employer] dictation software. please excuse any grammatical, word or spelling errors. Time with Patient: Less than 30
--- NOTE | 2024-01-10 16:00 | IR ---
EXAMINATION TYPE: IR cvc insert >=5 years Intraoperative/procedural fluoroscopic services were provid ed. CLINICAL INDICATION:Male, 68 years old with history of ABX, 37cm, left cephalic vein, 0.9min fluoro, 1.276Jqzh3; , [facility] Total fluoroscopy time is 1.0 min. DAP: 183.31 Gycm2 uGym2 Please see the operative/procedural note for further details.
[2024-01-10 16:26] LABS: Glucose,Whole Blood 134 mg/dL (70-110)
--- NOTE | 2024-01-10 17:12 | P.PCN ---
Date of Procedure: 01/10/24 Preoperative Diagnosis: Sacral wound with abscess and need for long-term IV antibiotics Postoperative Diagnosis: Same Procedure(s) Performed: Left cephalic vein PICC line placement under ultrasound and fluoroscopic guidance Anesthesia: local Pathology: none sent Disposition: floor Description of Procedure: After written and informed consent was obtained the patient and all risks, benefits and competitions were described the patient was brought to the [facility] and laid in a supine position with his left arm outstretched on an armboard. The area of the left arm was prepped and draped in usual sterile fashion. Timeout was performed in normal fashion. Utilizing ultrasound the cephalic vein was visualized and shown to be compressible without any visible thrombus. Under ultrasound guidance the cephalic vein was then cannulated with a micropuncture needle and wire was placed under direct visualization of fluoroscopy. Introducer sheath was then placed. The catheter was measured and cut to the appropriate length which was 47 cm. The catheter was then guided through the breakaway sheath and the sheath was removed with good positioning was visualized under fluoroscopy. The catheter was pulled and flushed easily. It was then secured in place in normal fashion. Patient tolerated the procedure well was sent back to his room for recovery.
--- NOTE | 2024-01-10 19:00 | P.PN ---
Subjective Progress Note Date: 01/10/24 Patient is evaluated today on the medical floor. Postoperative day #1 surgical debridement of the stage IV sacral decubitus ulceration. Patient is scheduled to undergo CT of his sacrum today. 01/10/2024 Patient is evaluated today resting in bed. Alert x 2. Postoperative day #2 surgical debridement of the sacral decub. Sacral CT does not reveal osteomyelitis. PICC line was placed today for outpatient antibiotics. Potassium 3.1 today. Renal function WNL. Review of Systems Constitutional: Denied any fatigue denied any fever. Cardiovascular: denied any chest pain, palpitations Gastrointestinal: denied any nausea, vomiting, diarrhea Pulmonary: Denied any shortness of breath cough Neurologic denied any new focal deficits All inpatient medications were reviewed and appropriate changes in these med ications as dictated in the interval history and assessment and plan. PHYSICAL EXAMINATION: GENERAL: The patient is alert and oriented x3, not in any acute distress. Well developed, well nourished. HEENT: Pupils are round and equally reacting to light. EOMI. No scleral icterus. No conjunctival pallor. Normocephalic, atraumatic. No pharyngeal erythema. No thyromegaly. CARDIOVASCULAR: S1 and S2 present. No murmurs, rubs, or gallops. PULMONARY: Chest is clear to auscultation, no wheezing or crackles. ABDOMEN: Soft, nontender, nondistended, normoactive bowel sounds. No palpable organomegaly. MUSCULOSKELETAL: No joint swelling or deformity. EXTREMITIES: No cyanosis, clubbing, or pedal edema. Left BKA. NEUROLOGICAL: Gross neurological examination did not reveal any focal deficits. SKIN: No rashes. Stage IV decubitus ulceration. Assessment and Plan Decubitus ulceration stage IV sacrum with failure of outpatient treatment currently on course of IV antibiotics, ID following. Status post debridement Altered mental status due to acute metabolic encephalopathy with underlying dementia Hx of asthma with no acute exacerbation Diabetes mellitus type 2 continue accuechecks ACHS and sliding scale insulin Hypertension maintained on lisinopril Hx coronary artery disease Parkinsons on cinemet Charcot foot History of MRSA GI prophylaxis DVT prophylaxis Full Code Continue antibiotics with IV cefepime, metronidazole and IV vancomycin. Cultures pending. ID following. Local wound care with santyl. Continue hydration. Repeat labs in the AM. PICC line placed today for outpatient antibiotics. Deep tissue cultures not collected during surgical debridement. Have been ordered today and need final cultures for discharge planning. The impression and plan of care has been dictated by Holly Bojorquez, Nurse Practitioner as directed. Dr. Gerson MD I have performed a history and physical examination and medical decision making of this patient, discussed the same with the dictator, and agree with the dictators assessment and plan as written, documented as a scribe. Based on total visit time, I have performed more than 50% of this visit. Objective - Vital Signs Vital signs: Vital Signs Temp 98.1 F 01/10/24 14:00 Pulse 92 01/10/24 14:00 Resp 16 01/10/24 14:00 BP 153/77 01/10/24 14:00 Pulse Ox 97 01/10/24 14:00 FiO2 Intake & Output 01/09/24 01/10/24 01/10/24 18:59 06:59 18:59 Output Total 945 102 9141 Balance -300 -400 -1800 Weight 113.398 kg Output: Urine 044 019 1507 Other: Voiding Method Indwelling Catheter Indwelling Catheter Indwelling Catheter - Labs CBC & Chem 7: 01/09/24 05:54 01/10/24 07:27 Labs: Abnormal Lab Results - Last 24 Hours (Table) 01/09/24 01/10/24 01/10/24 Range/Units 05:54 07:27 11:15 Potassium 3.1 L (3.5-5.1) mmol/L Chloride 108 H (98-107) mmol/L BUN 7 L (9-20) mg/dL Creatinine 0.60 L (0.66-1.25) mg/dL Glucose 129 H (74-99) mg/dL POC Glucose (mg/dL) 166 H (70-110) mg/dL Calcium 7.7 L (8.4-10.2) mg/dL C-Reactive Protein 15.80 H (0.00-0.80) mg/dL 01/10/24 Range/Units 16:22 Potassium (3.5-5.1) mmol/L Chloride (98-107) mmol/L BUN (9-20) mg/dL Creatinine (0.66-1.25) mg/dL Glucose (74-99) mg/dL POC Glucose (mg/dL) 134 H (70-110) mg/dL Calcium (8.4-10.2) mg/dL C-Reactive Protein (0.00-0.80) mg/dL Microbiology - Last 24 Hours (Table) 01/06/24 17:03 Blood Culture - Preliminary Blood Assessment and Plan Time with Patient: Less than 30
[2024-01-10 20:19] LABS: Glucose,Whole Blood 120 mg/dL (70-110)
[2024-01-10] MEDS: VANCOMYCIN 1,750 MG in SODIUM CHLORIDE 0.9% 500 ML 500 ML IVPB SCH (21:37)
[2024-01-11 05:57] LABS: Glucose,Whole Blood 104 mg/dL (70-110)
[2024-01-11 11:09] LABS: Glucose,Whole Blood 192 mg/dL (70-110)
--- NOTE | 2024-01-11 11:16 | P.PN ---
Progress Note - Text Progress Note Date: 01/11/24 CHIEF COMPLAINT: sacral decubitus ulcer HISTORY OF PRESENT ILLNESS: Postop day #3 status post debridement of sacral decubitus ulcer of necrotic skin and fat and muscle. Patient has no new complaints. Afebrile. PHYSICAL EXAM: VITAL SIGNS: Reviewed. GENERAL: no acute distress. NEUROLOGIC: Awake. Confused ASSESSMENT: 1. Sacral decubitus ulcer status post debridement PLAN: -Continue local wound care -Continue antibiotics per ID service -Continue offloading -Patient followed by infectious disease and wound care service.
--- NOTE | 2024-01-11 15:15 | P.PN ---
Subjective Progress Note Date: 01/11/24 Patient is evaluated today on the medical floor. Postoperative day #1 surgical debridement of the stage IV sacral decubitus ulceration. Patient is scheduled to undergo CT of his sacrum today. 01/10/2024 Patient is evaluated today resting in bed. Alert x 2. Postoperative day #2 surgical debridement of the sacral decub. Sacral CT does not reveal osteomyelitis. PICC line was placed today for outpatient antibiotics. Potassium 3.1 today. Renal function WNL. 01/11/2024 Patient bed today resting in bed he is alert x 2-3 with moments of confusion. He is postoperative day #3 surgical debridement of his sacral decubitus ulceration with wound cultures currently pending. Patient remains on IV antibiotics and PICC line was placed. Wound culture from the shows Dina. Review of Systems Constitutional: Denied any fatigue denied any fever. Cardiovascular: denied any chest pain, palpitations Gastrointestinal: denied any nausea, vomiting, diarrhea Pulmonary: Denied any shortness of breath cough Neurologic denied any new focal deficits All inpatient medications were reviewed and appropriate changes in these medications as dictated in the interval history and assessment and plan. PHYSICAL EXAMINATION: GENERAL: The patient is alert and oriented x3, not in any acute distress. Well developed, well nourished. HEENT: Pupils are round and equally reacting to light. EOMI. No scleral icterus. No conjunctival pallor. Normocephalic, atraumatic. No pharyngeal erythema. No thyromegaly. CARDIOVASCULAR: S1 and S2 present. No murmurs, rubs, or gallops. PULMONARY: Chest is clear to auscultation, no wheezing or crackles. ABDOMEN: Soft, nontender, nondistended, normoactive bowel sounds. No palpable organomegaly. MUSCULOSKELETAL: No joint swelling or deformity. EXTREMITIES: No cyanosis, clubbing, or pedal edema. Left BKA. NEUROLOGICAL: Gross neurological examination did not reveal any focal deficits. SKIN: No rashes. Stage IV decubitus ulceration. Assessment and Plan Decubitus ulceration stage IV sacrum with failure of outpatient treatment currently on course of IV antibiotics, ID following. Status post debridement Altered mental status due to acute metabolic encephalopathy with underlying dementia Hx of asthma with no acute exacerbation Diabetes mellitus type 2 continue accuechecks ACHS and sliding scale insulin Hypertension maintained on lisinopril Hx coronary artery disease Parkinsons on cinemet Charcot foot History of MRSA GI prophylaxis DVT prophylaxis Full Code Continue antibiotics with IV cefepime, metronidazole and IV vancomycin. Cultures pending. ID following. Local wound care with santyl. Continue hydration. Repeat labs in the AM. PICC line placed today for outpatient antibiotics. Deep tissue cultures not collected during surgical debridement. Have been collected and pending final cultures for discharge antibiotics. Patient will return to [facility] when medically stable. The impression and plan of care has been dictated by Holly Bojorquez, Nurse Practitioner as directed. Dr. Gerson MD I have performed a history and physical examination and medical decision making of this patient, discussed the same with the dictator, and agree with the d ictators assessment and plan as written, documented as a scribe. Based on total visit time, I have performed more than 50% of this visit. Objective - Vital Signs Vital signs: Vital Signs Temp 98.2 F 01/11/24 14:00 Pulse 82 01/11/24 14:00 Resp 18 01/11/24 14:00 BP 184/90 01/11/24 14:00 Pulse Ox 96 01/11/24 14:00 FiO2 Intake & Output 01/10/24 01/11/24 01/11/24 18:59 06:59 18:59 Output Total 1800 1500 Balance -1800 -1500 Weight 113.398 kg Output: Urine 1800 1500 Other: Voiding Method Indwelling Catheter Indwelling Catheter - Labs CBC & Chem 7: 01/09/24 05:54 01/10/24 07:27 Labs: Abnormal Lab Results - Last 24 Hours (Table) 01/10/24 01/10/24 01/11/24 Range/Units 16:22 20:17 11:07 POC Glucose (mg/dL) 134 H 120 H 192 H (70-110) mg/dL Microbiology - Last 24 Hours (Table) 01/10/24 12:20 Gram Stain - Preliminary Other - Other Wound Culture - Preliminary Dina albicans Assessment and Plan Time with Patient: Less than 30
[2024-01-11 16:40] LABS: African American GFR (CKD) >90 (>60 ml/min/1.73 sqM); Anion Gap 4 mmol/L; Blood Urea Nitrogen 7 mg/dL (9-20); Calcium 7.7 mg/dL (8.4-10.2); Carbon Dioxide 25 mmol/L (22-30); Chloride 109 mmol/L (98-107); Glucose 120 mg/dL (74-99); Non-African American GFR(CKD) >90 (>60 ml/min/1.73 sqM); Potassium 3.3 mmol/L (3.5-5.1); Sodium 138 mmol/L (137-145)
[2024-01-11 16:58] LABS: Glucose,Whole Blood 138 mg/dL (70-110)
[2024-01-11] MEDS: amLODIPine 5 MG TAB PO SCH (17:26)
[2024-01-11 20:25] LABS: Glucose,Whole Blood 219 mg/dL (70-110)
[2024-01-12 06:09] LABS: Glucose,Whole Blood 164 mg/dL (70-110)
[2024-01-12 10:59] LABS: African American GFR (CKD) >90 (>60 ml/min/1.73 sqM); Non-African American GFR(CKD) >90 (>60 ml/min/1.73 sqM)
[2024-01-12 11:33] LABS: Glucose,Whole Blood 205 mg/dL (70-110)
--- NOTE | 2024-01-12 12:04 | P.PN ---
Subjective Progress Note Date: 01/12/24 Principal diagnosis: Sacral decubitus ulcer Patient doing well today. Slightly confused. Denies pain. He is afebrile. Objective - Vital Signs Vital signs: Vital Signs Temp 99.1 F 01/12/24 08:00 Pulse 82 01/12/24 08:00 Resp 18 01/12/24 08:00 BP 172/82 01/12/24 08:00 Pulse Ox 97 01/12/24 08:00 FiO2 Intake & Output 01/11/24 01/12/24 01/12/24 18:59 06:59 18:59 Output Total 2500 1100 950 Balance -2500 -1100 -950 Output: Urine 2500 1100 950 Uretheral (Pillai) 950 Other: Voiding Method Indwelling Catheter Indwelling Catheter # Bowel Movements 1 1 - Exam Sacral wound with dressing in place, minimal tenderness - Labs CBC & Chem 7: 01/09/24 05:54 01/12/24 10:10 Labs: Abnormal Lab Results - Last 24 Hours (Table) 01/11/24 01/11/24 01/11/24 Range/Units 15:49 16:56 20:24 Potassium 3.3 L (3.5-5.1) mmol/L Chloride 109 H (98-107) mmol/L BUN 7 L (9-20) mg/dL Creatinine 0.55 L (0.66-1.25) mg/dL Glucose 120 H (74-99) mg/dL POC Glucose (mg/dL) 138 H 219 H (70-110) mg/dL Calcium 7.7 L (8.4-10.2) mg/dL 01/12/24 01/12/24 01/12/24 Range/Units 06:07 10:10 11:17 Potassium (3.5-5.1) mmol/L Chloride (98-107) mmol/L BUN (9-20) mg/dL Creatinine 0.58 L (0.66-1.25) mg/dL Glucose (74-99) mg/dL POC Glucose (mg/dL) 164 H 205 H (70-110) mg/dL Calcium (8.4-10.2) mg/dL Microbiology - Last 24 Hours (Table) 01/10/24 12:20 Gram Stain - Final Other - Other Wound Culture - Final Dina albicans 01/06/24 17:03 Blood Culture - Final Blood Assessment and Plan (1) Infected decubitus ulcer Narrative/Plan: 68-year-old male with decubitus ulcer. Continue local wound care. Continue optimization of nutrition. Continue offloading. Current Visit: Yes Status: Acute Code(s): L89.90 - PRESSURE ULCER OF UNSPECIFIED SITE, UNSPECIFIED STAGE; L08.9 - LOCAL INFECTION OF THE SKIN AND SUBCUTANEOUS TISSUE, UNSP SNOMED Code(s): 457440499
[2024-01-12 12:56] LABS: BUN/Creat Ratio 9.14 Ratio (12.00-20.00); Blood Urea Nitrogen 6.4 mg/dL (9.0-27.0); Carbon Dioxide 25.1 mmol/L (21.6-31.8); Chloride 105 mmol/L (96-109); Glucose 156 mg/dL (70-110); Potassium 3.3 mmol/L (3.5-5.5); Sodium 141 mmol/L (135-145)
[2024-01-12] MEDS: VANCOMYCIN TROUGH DUE 1 EACH MISC MISCELLANE ONE (13:13)
[2024-01-12] MEDS ORDERED: Magnesium Replacement Protocol 1 EACH MISC MISCELLANE PRN (13:32)
--- NOTE | 2024-01-12 13:32 | P.PN ---
Subjective Progress Note Date: 01/12/24 Patient is evaluated today on the medical floor. Postoperative day #1 surgical debridement of the stage IV sacral decubitus ulceration. Patient is scheduled to undergo CT of his sacrum today. 01/10/2024 Patient is evaluated today resting in bed. Alert x 2. Postoperative day #2 surgical debridement of the sacral decub. Sacral CT does not reveal osteomyelitis. PICC line was placed today for outpatient antibiotics. Potassium 3.1 today. Renal function WNL. 01/11/2024 Patient bed today resting in bed he is alert x 2-3 with moments of confusion. He is postoperative day #3 surgical debridement of his sacral decubitus ulceration with wound cultures currently pending. Patient remains on IV antibiotics and PICC line was placed. Wound culture from the shows Dina. 01/12/2024 Patient is evaluated in follow up today on the [facility] floor. He is alert x 2 to 3 and continues with moments of confustion. He reports improved pain to the sacral ulcer. He is status post surgical debridement. Cultures showing dina. Continues on IV cefepime, IV flagyl, IV vancomycin. Potassium 3.3., magnesium 1. 6. Review of Systems Constitutional: Denied any fatigue denied any fever. Cardiovascular: denied any chest pain, palpitations Gastrointestinal: denied any nausea, vomiting, diarrhea Pulmonary: Denied any shortness of breath cough Neurologic denied any new focal deficits All inpatient medications were reviewed and appropriate changes in these medications as dictated in the interval history and assessment and plan. PHYSICAL EXAMINATION: GENERAL: The patient is alert and oriented x3, not in any acute distress. Well developed, well nourished. HEENT: Pupils are round and equally reacting to light. EOMI. No scleral icterus. No conjunctival pallor. Normocephalic, atraumatic. No pharyngeal erythema. No thyromegaly. CARDIOVASCULAR: S1 and S2 present. No murmurs, rubs, or gallops. PULMONARY: Chest is clear to auscultation, no wheezing or crackles. ABDOMEN: Soft, nontender, nondistended, normoactive bowel sounds. No palpable organomegaly. MUSCULOSKELETAL: No joint swelling or deformity. EXTREMITIES: No cyanosis, clubbing, or pedal edema. Left BKA. NEUROLOGICAL: Gross neurological examination did not reveal any focal deficits. SKIN: No rashes. Stage IV decubitus ulceration. Assessment and Plan Decubitus ulceration stage IV sacrum with failure of outpatient treatment currently on course of IV antibiotics, ID following. Status post debridement Altered mental status due to acute metabolic encephalopathy with underlying dementia Hx of asthma with no acute exacerbation Diabetes mellitus type 2 continue accuechecks ACHS and sliding scale insulin Hypertension maintained on lisinopril Hx coronary artery disease Parkinsons on cinemet Charcot foot History of MRSA GI prophylaxis DVT prophylaxis Full Code Continue antibiotics with IV cefepime, metronidazole and IV vancomycin. Cultures pending. ID following. Local wound care with santyl. Continue hydration. Repeat labs in the AM. PICC line placed today for outpatient antibiotics. Deep tissue cultures not collected during surgical debridement. Have been collected and pending final cultures for discharge antibiotics. Patient will return to [facility] when medically stable. The impression and plan of care has been dictated by Holly Bojorquez, Nurse Practitioner as directed. Dr. Gerson MD I have performed a history and physical examination and medical decision making of this patient, discussed the same with the dictator, and agree with the dictators assessment and plan as written, documented as a scribe. Based on total visit time, I have performed more than 50% of this visit. Objective - Vital Signs Vital signs: Vital Signs Temp 98.2 F 01/12/24 02:00 Pulse 84 01/12/24 02:00 Resp 18 01/11/24 14:00 BP 168/102 01/12/24 02:00 Pulse Ox 96 01/12/24 02:00 FiO2 Intake & Output 01/11/24 01/12/24 01/12/24 18:59 06:59 18:59 Output Total 2500 1100 Balance -2500 -1100 Output: Urine 2500 1100 Other: Voiding Method Indwelling Catheter Indwelling Catheter # Bowel Movements 1 - Labs CBC & Chem 7: 01/09/24 05:54 01/12/24 10:10 Labs: Abnormal Lab Results - Last 24 Hours (Table) 01/11/24 01/11/24 01/11/24 Range/Units 11:07 15:49 16:56 Potassium 3.3 L (3.5-5.1) mmol/L Chloride 109 H (98-107) mmol/L BUN 7 L (9-20) mg/dL Creatinine 0.55 L (0.66-1.25) mg/dL Glucose 120 H (74-99) mg/dL POC Glucose (mg/dL) 192 H 138 H (70-110) mg/dL Calcium 7.7 L (8.4-10.2) mg/dL 01/11/24 01/12/24 Range/Units 20:24 06:07 Potassium (3.5-5.1) mmol/L Chloride (98-107) mmol/L BUN (9-20) mg/dL Creatinine (0.66-1.25) mg/dL Glucose (74-99) mg/dL POC Glucose (mg/dL) 219 H 164 H (70-110) mg/dL Calcium (8.4-10.2) mg/dL Microbiology - Last 24 Hours (Table) 01/06/24 17:03 Blood Culture - Final Blood 01/10/24 12:20 Gram Stain - Preliminary Other - Other Wound Culture - Preliminary Dina albicans Assessment and Plan Time with Patient: Less than 30
[2024-01-12] MEDS: VANCOMYCIN 1,500 MG in SODIUM CHLORIDE 0.9% 500 ML 500 ML IVPB SCH (14:47)
[2024-01-12 16:21] LABS: Glucose,Whole Blood 197 mg/dL (70-110)
--- NOTE | 2024-01-12 16:32 | P.PN ---
Subjective Progress Note Date: 01/11/24 Principal diagnosis: Reason for follow-up infected sacral pressure ulcer Patient is a 68-year-old male with a past medical his significant for diabetes mellitus hypertension hyperlipidemia coronary disease [place] patient has been brought into the hospital for evaluation of mental status changes, patient was noticed to have an infected sacral pressure ulcer prompting this consultation.Patient is status post surgical debridement of his sacral pressure ulcer complicated by surgery on 01/08/2024 no OR cultures were done On today's evaluation 01/11/2024, patient has been afebrile, patient is breathing comfortably and is currently on room air, patient not have adequate hi storian but does not seem to be any distressed no vomiting or diarrhea reported by nursing staff No CBC was done today Objective - Vital Signs Vital signs: Vital Signs Temp 98.2 F 01/11/24 14:00 Pulse 82 01/11/24 14:00 Resp 18 01/11/24 14:00 BP 184/90 01/11/24 14:00 Pulse Ox 96 01/11/24 14:00 FiO2 Intake & Output 01/10/24 01/11/24 01/11/24 18:59 06:59 18:59 Output Total 1800 1500 Balance -1800 -1500 Weight 113.398 kg Output: Urine 1800 1500 Other: Voiding Method Indwelling Catheter Indwelling Catheter Indwelling Catheter - Exam GENERAL DESCRIPTION: An elderly male lying in bed in no distress RESPIRATORY SYSTEM: Unlabored breathing , decreased breath sounds at bases HEART: S1 S2 regular rate and rhythm , ABDOMEN: Soft , no tenderness Patient did have a stage IV sacral ulcer wound base was clean wound is palpable cultures obtained - Labs CBC & Chem 7: 01/09/24 05:54 01/12/24 10:10 Labs: Abnormal Lab Results - Last 24 Hours (Table) 01/10/24 01/11/24 01/11/24 Range/Units 20:17 11:07 15:49 Potassium 3.3 L (3.5-5.1) mmol/L Chloride 109 H (98-107) mmol/L BUN 7 L (9-20) mg/dL Creatinine 0.55 L (0.66-1.25) mg/dL Glucose 120 H (74-99) mg/dL POC Glucose (mg/dL) 120 H 192 H (70-110) mg/dL Calcium 7.7 L (8.4-10.2) mg/dL 01/11/24 Range/Units 16:56 Potassium (3.5-5.1) mmol/L Chloride (98-107) mmol/L BUN (9-20) mg/dL Creatinine (0.66-1.25) mg/dL Glucose (74-99) mg/dL POC Glucose (mg/dL) 138 H (70-110) mg/dL Calcium (8.4-10.2) mg/dL Microbiology - Last 24 Hours (Table) 01/10/24 12:20 Gram Stain - Preliminary Other - Other Wound Culture - Preliminary Dina albicans Assessment and Plan (1) Infected decubitus ulcer Current Visit: Yes Status: Acute Code(s): L89.90 - PRESSURE ULCER OF UNSPECIFIED SITE, UNSPECIFIED STAGE; L08.9 - LOCAL INFECTION OF THE SKIN AND SUBCUTANEOUS TISSUE, UNSP SNOMED Code(s): 778350147 (2) Penicillin allergy Current Visit: Yes Status: Acute Code(s): Z88.0 - ALLERGY STATUS TO PENICILLIN SNOMED Code(s): 49798281 (3) Pressure ulcer of sacral region, stage 4 Current Visit: Yes Status: Acute Code(s): L89.154 - PRESSURE ULCER OF SACRAL REGION, STAGE 4 SNOMED Code(s): 36338882586698 Plan: 1patient presented to hospital with infected sacral pressure ulcer to the sacral area stage IV with the patient has for couple of months and apparently failing outpatient therapy no concern for possible deeper infection likely from gram-positive skin jethro gram-negative pressure not entirely excluded 2-patient with a penicillin allergy however has tolerated Zosyn without any problem clinical doubt true penicillin allergy 3-patient is status post surgical debridement unfortunately no cultures were done, patient did have a CT of sacrum no bony destruction however there is exposed wound with a clinical diagnosis of osteomyelitis culture has been obtained at the bedside results will be followed and for now continue with the vancomycin and cefepime and Flagyl Dictation was produced using [employer] dictation software. please excuse any grammatical, word or spelling errors. Time with Patient: Less than 30
--- NOTE | 2024-01-12 16:33 | P.PN ---
Subjective Progress Note Date: 01/12/24 Principal diagnosis: Reason for follow-up infected sacral pressure ulcer Patient is a 68-year-old male with a past medical his significant for diabetes mellitus hypertension hyperlipidemia coronary disease [place] patient has been brought into the hospital for evaluation of mental status changes, patient was noticed to have an infected sacral pressure ulcer prompting this consultation.Patient is status post surgical debridement of his sacral pressure ulcer complicated by surgery on 01/08/2024 no OR cultures were done On today's evaluation 01/12/2024,the patient continues to be afebrile he is breathing comfortably on room air patient does not seem any distress not a good historian no vomiting diarrhea or any other changes reported by the nursing staff. Patient did have a creatinine 0.58 vancomycin trough was 18.4, cultures growing Dina Objective - Vital Signs Vital signs: Vital Signs Temp 97.9 F 01/12/24 14:00 Pulse 72 01/12/24 14:00 Resp 16 01/12/24 14:00 BP 171/61 01/12/24 14:00 Pulse Ox 96 01/12/24 14:00 FiO2 Intake & Output 01/11/24 01/12/24 01/12/24 18:59 06:59 18:59 Output Total 2500 1100 950 Balance -2500 -1100 -950 Output: Urine 2500 1100 950 Uretheral (Pillai) 950 Other: Voiding Method Indwelling Catheter Indwelling Catheter # Bowel Movements 1 1 - Exam GENERAL DESCRIPTION: An elderly male lying in bed in no distress RESPIRATORY SYSTEM: Unlabored breathing , decreased breath sounds at bases HEART: S1 S2 regular rate and rhythm , ABDOMEN: Soft , no tenderness Patient did have a stage IV sacral ulcer wound base was clean wound is palpable cultures obtained - Labs CBC & Chem 7: 01/09/24 05:54 01/12/24 10:10 Labs: Abnormal Lab Results - Last 24 Hours (Table) 01/11/24 01/11/24 01/11/24 Range/Units 15:49 16:56 20:24 Potassium 3.3 L (3.5-5.1) mmol/L Chloride 109 H (98-107) mmol/L BUN 7 L (9-20) mg/dL Creatinine 0.55 L (0.66-1.25) mg/dL BUN/Creatinine Ratio (12.00-20.00) Ratio Glucose 120 H (74-99) mg/dL POC Glucose (mg/dL) 138 H 219 H (70-110) mg/dL Calcium 7.7 L (8.4-10.2) mg/dL 01/12/24 01/12/24 01/12/24 Range/Units 03:37 06:07 10:10 Potassium 3.3 L (3.5-5.1) mmol/L Chloride (98-107) mmol/L BUN 6.4 L (9-20) mg/dL Creatinine 0.58 L (0.66-1.25) mg/dL BUN/Creatinine Ratio 9.14 L (12.00-20.00) Ratio Glucose 156 H (74-99) mg/dL POC Glucose (mg/dL) 164 H (70-110) mg/dL Calcium 8.0 L (8.4-10.2) mg/dL 01/12/24 01/12/24 Range/Units 11:17 16:14 Potassium (3.5-5.1) mmol/L Chloride (98-107) mmol/L BUN (9-20) mg/dL Creatinine (0.66-1.25) mg/dL BUN/Creatinine Ratio (12.00-20.00) Ratio Glucose (74-99) mg/dL POC Glucose (mg/dL) 205 H 197 H (70-110) mg/dL Calcium (8.4-10.2) mg/dL Microbiology - Last 24 Hours (Table) 01/10/24 12:20 Anaerobic Culture - Preliminary Coccyx 01/10/24 12:20 Gram Stain - Final Other - Other Wound Culture - Final Dina albicans 01/06/24 17:03 Blood Culture - Final Blood Assessment and Plan (1) Infected decubitus ulcer Current Visit: Yes Status: Acute Code(s): L89.90 - PRESSURE ULCER OF UNSPECIFIED SITE, UNSPECIFIED STAGE; L08.9 - LOCAL INFECTION OF THE SKIN AND SUBCUTANEOUS TISSUE, UNSP SNOMED Code(s): 043345544 (2) Penicillin allergy Current Visit: Yes Status: Acute Code(s): Z88.0 - ALLERGY STATUS TO PENICILLIN SNOMED Code(s): 92364050 (3) Pressure ulcer of sacral region, stage 4 Current Visit: Yes Status: Acute Code(s): L89.154 - PRESSURE ULCER OF SACRAL REGION, STAGE 4 SNOMED Code(s): 77875454941979 Plan: 1patient presented to hospital with infected sacral pressure ulcer to the sacral area stage IV with the patient has for couple of months and apparently failing outpatient therapy no concern for possible deeper infection likely from gram-positive skin jethro gram-negative pressure not entirely excluded 2-patient with a penicillin allergy however has tolerated Zosyn without any prob socrates clinical doubt true penicillin allergy 3-patient is status post surgical debridement unfortunately no cultures were done, patient did have a CT of sacrum no bony destruction however there is expos ed wound with a clinical diagnosis of osteomyelitis culture has been obtained at the bedside which did grew Dina questionably colonizer versus pathogen as no resistant pathogen has been grown we will discontinue vancomycin and cefepime, add Rocephin Diflucan and continue with the Flagyl Dictation was produced using [employer] dictation software. please excuse any grammatical, word or spelling errors. Time with Patient: Less than 30
[2024-01-12] MEDS: POTASSIUM CHLORIDE ER 20 MEQ TAB.ER PO STA (18:24)
[2024-01-12] MEDS: metroNIDAZOLE 500 MG TAB PO SCH (18:32)
[2024-01-12] MEDS: MAGNESIUM SULFATE-D5W PMX 1 GM in DEXTROSE/WATER 1 100ML.BAG IVPB SCH (18:32)
[2024-01-12] MEDS: FLUCONAZOLE 100 MG TAB PO SCH (18:32)
[2024-01-12 19:41] LABS: Glucose,Whole Blood 217 mg/dL (70-110)
[2024-01-13] MEDS: ACETAMINOPHEN TAB 325 MG TAB PO PRN (03:48)
[2024-01-13 06:14] LABS: Glucose,Whole Blood 132 mg/dL (70-110)
[2024-01-13] MEDS: amLODIPine 10 MG TAB PO SCH (07:48)
[2024-01-13 08:47] LABS: Blood Urea Nitrogen 6.3 mg/dL (9.0-27.0); Chloride 103 mmol/L (96-109); Glucose 133 mg/dL (70-110); Potassium 3.4 mmol/L (3.5-5.5); Sodium 141 mmol/L (135-145)
[2024-01-13 08:48] LABS: Carbon Dioxide 28.4 mmol/L (21.6-31.8)
[2024-01-13] MEDS: POTASSIUM CHLORIDE ER 10 MEQ TAB.ER.PRT PO SCH (09:32)
[2024-01-13 11:54] LABS: Glucose,Whole Blood 120 mg/dL (70-110)
--- NOTE | 2024-01-13 14:11 | P.DS ---
Providers Date of admission: 01/06/24 16:18 Attending physician: Rosalba Mcdowell Consults: 01/07/24 11:33 Consult Physician Routine Consulting Provider: Jhonatan Eric Consult Reason/Comments: stage 4 pressure ulcer/surgical debridement Do you want consulting provider notified?: Yes 01/07/24 13:28 Consult Physician Routine Consulting Provider: Thomas Sanabria Consult Reason/Comments: sacral wound, infected, ams, uti, @ [facility] Do you want consulting provider notified?: Yes Primary care physician: Tomy Yen Hospital Course: Final Diagnosis Decubitus ulceration stage IV sacrum with failure of outpatient treatment currently on course of IV antibiotics, ID following. Status post debridement Osteomyelitis and sepsis from the sacral decubitus ulceration Altered mental status due to acute metabolic encephalopathy with underlying dementia Hx of asthma with no acute exacerbation Diabetes mellitus type 2 continue accuechecks ACHS and sliding scale insulin Hypertension maintained on lisinopril, added amlodipine. Hx coronary artery disease Parkinsons on cinemet Charcot foot History of MRSA Full Code Discharge Disposition Patient is stable for discharge back to [facility]. Patient was seen in consultation by [facility] wound [facility] recommending application of negative pressure wound VAC if the ulceration has greater than 70% of granulation noted. Until that time continue with Karoyl. He is status post surgical debridement. Patient will return to the [facility] wound care center upon discharge. Patient has PICC line placed and will discharge on a combination of oral and IV antibiotics. Weekly blood work on discharge. Recommending to discontinue Seroquel as patient will need to be on Diflucan for the next 14 days. Hospital Course This is a 68-year-old male with history of asthma, coronary artery disease, diabetes mellitus type 2, hypertension, hyperlipidemia, Parkinson's, Charcot disease, history of MRSA. Patient comes in from the hospital secondary to a stage IV sacral decubitus ulceration with necrotic area failed outpatient treatment. Patient was admitted to the hospital under medicine with consult placed to infectious disease, wound care and general surgery. Patient had concern for altered mental status on admission. Brain CT was done showing age- related atrophic and chronic small vessel ischemic change without acute intracranial processes at this time. Patient underwent debridement of the sacral decubitus ulceration on January 07. Surgical cultures were not done during the debridement they were done the day after and final cultures are showing Dina albicans. Had a CT done of the sacrum shows soft tissue ulceration as a cause above without evidence for osteomyelitis however based on clinical representation infectious disease felt that there is osteomyelitis present. As above wound care recommended wound vac on the ulceration when the wound bed has 70% granulation until then can use santyl daily Patient had PICC Line placed for outpatient antibiotics with diflucan daily for 2 weeks and 2 grams IV rocephin daily for 6 weeks and oral flagyl for 6 weeks. Patient is alert and oriented x 3 with moments of confusion appears to be at baseline He has no chest pain no shortness of breath. No nausea vomiting or diarrhea. His lungs are clear, S1 S2 auscultated abdomen is soft and nontender focal neurological exam is negative. Recent blood work showing a sodium level of 141, potassium 3.4, BUN of 6.3, creatinine 0.6, magnesium 2.0. White blood cell count 8.37. Patient is on room air. Please see medication reconciliation for a list of current medications. Thank you for allowing us to participate in the care of this patient. The impression and plan of care has been dictated by Holly Bojorquez, Nurse Practitioner as directed. Dr. Gerson MD I have performed a history and physical examination and medical decision making of this patient, discussed the same with the dictator, and agree with the dictators assessment and plan as written, documented as a scribe. Based on total visit time, I have performed more than 50% of this visit. Patient Condition at Discharge: Fair Plan - Discharge Summary Discharge Rx Participant: No New Discharge Prescriptions: New metroNIDAZOLE [Flagyl] 500 mg PO TID 42 Days #126 tab amLODIPine [Norvasc] 10 mg PO DAILY tab cefTRIAXone [Rocephin] 2 gm IVPB Q24H 42 Days #42 each Collagenase [Santyl Ointment] 1 applic TOPICAL DAILY each Fluconazole [Diflucan] 100 mg PO DAILY 14 Days #14 tab Heparin Sodium,Porcine (1 ml) [Heparin Sodium] 5,000 unit SQ Q12HR each Continue Carbidopa-Levodopa 25-100 mg [Sinemet 25-100 mg] 1 tab PO Q8H Tussin Dm 10 ml PO Q4H PRN PRN Reason: Cough INSULIN LISPRO (HumaLOG) [humaLOG] See Protocol SQ ACHS lisinopriL [Zestril] 10 mg PO BID Tamsulosin HCl [Flomax] 0.4 mg PO DAILY guaiFENesin 400 mg PO Q4H PRN PRN Reason: cough/congestion Magnesium Hydroxide [Milk of Magnesia] 2,400 mg PO DAILY PRN PRN Reason: Constipation Acetaminophen Tab [Tylenol] 650 mg PO Q4H PRN PRN Reason: Pain Or Fever > 100.5 House Supplement 120 ml PO BID Fluticasone Propion/Salmeterol [Advair 100-50 Diskus] 1 puff PO RT-BID Sennosides/Docusate Sodium [Senna-S 8.6-50 mg Tablet] 2 tab PO DAILY FLUoxetine HCL [PROzac] 10 mg PO DAILY Pimavanserin Tartrate [Nuplazid] 34 mg PO HS Metoprolol Succinate (ER) [Toprol XL] 100 mg PO DAILY Insulin Glargine,Hum.rec.anlog [Lantus Solostar Pen] 20 units SQ DAILY Atorvastatin [Lipitor] 10 mg PO HS Active Liquid Protein 30 ml PO DAILY Changed traMADol HCL 50 mg PO TID PRN #8 tab PRN Reason: Pain Discontinued ALPRAZolam [Xanax] 0.5 mg PO Q8H PRN PRN Reason: Anxiety Acetaminophen Tab [Tylenol] 650 mg PO BID QUEtiapine [SEROquel] 100 mg PO BID Discharge Medication List Carbidopa-Levodopa 25-100 mg [Sinemet 25-100 mg] 1 tab PO Q8H 09/11/19 [History] Acetaminophen Tab [Tylenol] 650 mg PO Q4H PRN 01/06/24 [History] Active Liquid Protein 30 ml PO DAILY 01/06/24 [History] Atorvastatin [Lipitor] 10 mg PO HS 01/06/24 [History] FLUoxetine HCL [PROzac] 10 mg PO DAILY 01/06/24 [History] Fluticasone Propion/Salmeterol [Advair 100-50 Diskus] 1 puff PO RT-BID 01/06/24 [History] House Supplement 120 ml PO BID 01/06/24 [History] INSULIN LISPRO (HumaLOG) [humaLOG] See Protocol SQ ACHS 01/06/24 [History] Insulin Glargine,Hum.rec.anlog [Lantus Solostar Pen] 20 units SQ DAILY 01/06/24 [History] Magnesium Hydroxide [Milk of Magnesia] 2,400 mg PO DAILY PRN 01/06/24 [History] Metoprolol Succinate (ER) [Toprol XL] 100 mg PO DAILY 01/06/24 [History] Pimavanserin Tartrate [Nuplazid] 34 mg PO HS 01/06/24 [History] Sennosides/Docusate Sodium [Senna-S 8.6-50 mg Tablet] 2 tab PO DAILY 01/06/24 [History] Tamsulosin HCl [Flomax] 0.4 mg PO DAILY 01/06/24 [History] Tussin Dm 10 ml PO Q4H PRN 01/06/24 [History] guaiFENesin 400 mg PO Q4H PRN 01/06/24 [History] lisinopriL [Zestril] 10 mg PO BID 01/06/24 [History] Collagenase [Santyl Ointment] 1 applic TOPICAL DAILY each 01/13/24 [Rx] Fluconazole [Diflucan] 100 mg PO DAILY 14 Days #14 tab 01/13/24 [Rx] Heparin Sodium,Porcine (1 ml) [Heparin Sodium] 5,000 unit SQ Q12HR each [Rx] amLODIPine [Norvasc] 10 mg PO DAILY tab 01/13/24 [Rx] cefTRIAXone [Rocephin] 2 gm IVPB Q24H 42 Days #42 each 01/13/24 [Rx] metroNIDAZOLE [Flagyl] 500 mg PO TID 42 Days #126 tab 01/13/24 [Rx] traMADol HCL 50 mg PO TID PRN #8 tab 01/13/24 [Rx] Follow up Appointment(s)/Referral(s): Ernesto Zepeda, [NON-STAFF] - As Needed Tomy Yen MD [Primary Care Provider] - 1-2 days Ambulatory/Diagnostic Orders: Basic Metabolic Panel [LAB.AMB] Time Frame: 3 Days, Location: None Selected Complete Blood Count w/diff [LAB.AMB] Location: None Selected Activity/Diet/Wound Care/Special Instructions: Local wound care: Local wound care with santyl daily to the sacral ulceration Follow up with Dr Sanabria in the office. Discharge Disposition: TRANSFER TO SNF/ECF
--- NOTE | 2024-01-13 14:47 | P.PN ---
Subjective Progress Note Date: 01/13/24 CHIEF COMPLAINT: sacral decubitus ulcer HISTORY OF PRESENT ILLNESS: Postop day #5 status post debridement of sacral decubitus ulcer of necrotic skin and fat and muscle. Patient has no new complaints. Afebrile. PHYSICAL EXAM: VITAL SIGNS: Reviewed. GENERAL: no acute distress. NEUROLOGIC: Awake. Confused ASSESSMENT: 1. Sacral decubitus ulcer status post debridement PLAN: -Continue local wound care -Continue antibiotics per ID service -Continue offloading -Patient can be discharged from surgical standpoint Physician Food Adviser note has been reviewed by physician. Signing provider agrees with the documented findings, assessment, and plan of care. Objective - Vital Signs Vital signs: Vital Signs Temp 98.6 F 01/13/24 07:45 Pulse 85 01/13/24 07:45 Resp 18 01/13/24 08:33 BP 152/40 01/13/24 07:45 Pulse Ox 94 L 01/13/24 07:45 FiO2 Intake & Output 01/12/24 01/13/24 01/13/24 18:59 06:59 18:59 Intake Total 118 150 Output Total 950 1525 700 Balance -832 -1375 -700 Intake: Oral 118 150 Output: Urine 950 1525 700 Uretheral (Pillai) 950 Other: Voiding Method Indwelling Catheter Indwelling Catheter Indwelling Catheter # Bowel Movements 1 1 - Labs CBC & Chem 7: 01/09/24 05:54 01/13/24 04:27 Labs: Abnormal Lab Results - Last 24 Hours (Table) 01/12/24 01/12/24 01/13/24 Range/Units 16:14 19:36 04:27 Potassium 3.4 L (3.5-5.5) mmol/L BUN 6.3 L (9.0-27.0) mg/dL BUN/Creatinine Ratio 10.50 L (12.00-20.00) Ratio Glucose 133 H (70-110) mg/dL POC Glucose (mg/dL) 197 H 217 H (70-110) mg/dL Calcium 8.0 L (8.7-10.3) mg/dL 01/13/24 01/13/24 Range/Units 06:12 11:52 Potassium (3.5-5.5) mmol/L BUN (9.0-27.0) mg/dL BUN/Creatinine Ratio (12.00-20.00) Ratio Glucose (70-110) mg/dL POC Glucose (mg/dL) 132 H 120 H (70-110) mg/dL Calcium (8.7-10.3) mg/dL Microbiology - Last 24 Hours (Table) 01/10/24 12:20 Anaerobic Culture - Preliminary Coccyx
[2024-01-13 16:54] LABS: Glucose,Whole Blood 106 mg/dL (70-110)
--- NOTE | 2024-01-13 17:09 | CDI ---
Documentation Clarification Form Date: 01/13/2024 04:58:23 PM From: Vicky Chacon RN CCDS Phone: [phone] Admit Date: 01/06/2024 04:18:00 PM Patient Name: Edwin Louise Visit Number: [id number] Discharge Date: ATTENTION: The Clinical Documentation Specialists (CDI) and [facility] Coding Staff appreciate your assistance in clarifying documentation. Please respond to the clarification below the line at the bottom and electronically sign. The CDI & [facility] Coding staff will review the response and follow-up if needed. Please note: Queries are made part of the Legal Health Record. If you have any questions, please contact the author of this message via ITS. Dr. Jhonatan Eric A debridement is documented 01/07, Surgical note. Additional clarification regarding the procedure is requested. History/Risk Factors: 68 year-old male presented to ED from Wound care for change in mental status, progression of decubitus ulcer and fever. Medical History: DM2, HTN, CAD, Parkinsons and history of MRSA. 01/06, H&P. Clinical Indicators: 01/07 Debridment surgery: There was necrotic skin muscle flap. Using a 10 blade the decubitus ulcer was sharply debrided.Then using electrocautery the specimen was further dissected Treatment: Debridement of sacral decubitus ulcer of necrotic skin and fat and muscle Please clarify the type of procedure performed: [ xx] Excisional debridement (the removal of necrotic, devitalized tissue or slough by means of cutting away of tissue) [ ] Non-excisional debridement (the removal of necrotic, devitalized tissue or slough by means of flushing, brushing, or washing. (Irrigation) [ ] Other; please specify [ ] Unable to determine Five elements required for accurate and compliant documentation of a debridement: Technique used (e.g., excisional, excised, cutting, brushing, jet lavage etc.) Instrument(s) used (e.g., scalpel, curette, etc.) Nature of the tissue removed (e.g., necrotic, devitalized tissues, non-viable tissue, etc.) Appearance and size of the wound (e.g., down to fresh bleeding tissue, 7cm x 10cm, etc.) Depth of the debridement* (e.g., skin, subcutaneous tissue, fascia, muscle, bone, etc.) (Template Last Revised: October 2020) MTDD
[2024-01-13 21:18] LABS: Glucose,Whole Blood 109 mg/dL (70-110)
[2024-01-14 06:15] LABS: Glucose,Whole Blood 114 mg/dL (70-110)
[2024-01-14 08:47] VITALS: RESP 17
--- NOTE | 2024-01-14 09:32 | P.DS ---
Providers Date of admission: 01/06/24 16:18 Attending physician: Rosalba Mcdowell Consults: 01/07/24 11:33 Consult Physician Routine Consulting Provider: Jhonatan Eric Consult Reason/Comments: stage 4 pressure ulcer/surgical debridement Do you want consulting provider notified?: Yes 01/07/24 13:28 Consult Physician Routine Consulting Provider: Thomas Sanabria Consult Reason/Comments: sacral wound, infected, ams, uti, @ [facility] Do you want consulting provider notified?: Yes Primary care physician: Tomy Yen Hospital Course: Final Diagnosis Decubitus ulceration stage IV sacrum with failure of outpatient treatment currently on course of IV antibiotics, ID following. Status post debridement Osteomyelitis and sepsis, present on admission from the sacral decubitus ulceration Altered mental status due to acute metabolic encephalopathy with underlying dementia Hx of asthma with no acute exacerbation Diabetes mellitus type 2 continue accuechecks ACHS and sliding scale insulin Hypertension maintained on lisinopril, added amlodipine. Hx coronary artery disease Parkinsons on cinemet Charcot foot History of MRSA Full Code Discharge Disposition Patient is stable for discharge back to [facility]. Patient was seen in consultation by medical wound care center recommending application of negative pressure wound VAC if the ulceration has greater than 70% of granulation noted. Until that time continue with Karoyl. He is status post surgical debridement. Patient will return to the [facility] wound care center upon discharge. Patient has PICC line placed and will discharge on a combination of oral and IV antibiotics. Weekly blood work on discharge. Recommending to discontinue Seroquel as patient will need to be on Diflucan for the next 14 days. Hospital Course This is a 68-year-old male with history of asthma, coronary artery disease, diabetes mellitus type 2, hypertension, hyperlipidemia, Parkinson's, Charcot disease, history of MRSA. Patient comes in from the hospital secondary to a stage IV sacral decubitus ulceration with necrotic area failed outpatient treatment. Patient was admitted to the hospital under medicine with consult placed to infectious disease, wound care and general surgery. Patient had concern for altered mental status on admission. Brain CT was done showing age- related atrophic and chronic small vessel ischemic change without acute intracranial processes at this time. Patient underwent debridement of the sacral decubitus ulceration on January 07. Surgical cultures were not done during the debridement they were done the day after and final cultures are showing Dina albicans. Had a CT done of the sacrum shows soft tissue ulceration as a cause above without evidence for osteomyelitis however based on clinical representation infectious disease felt that there is osteomyelitis present. As above wound care recommended wound vac on the ulceration when the wound bed has 70% granulation until then can use santyl daily Patient had PICC Line placed for outpatient antibiotics with diflucan daily for 2 weeks and 2 grams IV rocephin daily for 6 weeks and oral flagyl for 6 weeks. Patient is alert and oriented x 3 with moments of confusion appears to be at baseline He has no chest pain no shortness of breath. No nausea vomiting or diarrhea. His lungs are clear, S1 S2 auscultated abdomen is soft and nontender focal neurological exam is negative. Recent blood work showing a sodium level of 141, potassium 3.4, BUN of 6.3, creatinine 0.6, magnesium 2.0. White blood cell count 8.37. Patient is on room air. Please see medication reconciliation for a list of current medications. Thank you for allowing us to participate in the care of this patient. The impression and plan of care has been dictated by Holly Bojorquez, Nurse Practitioner as directed. Dr. Gerson MD I have performed a history and physical examination and medical decision making of this patient, discussed the same with the dictator, and agree with the dictators assessment and plan as written, documented as a scribe. Based on total visit time, I have performed more than 50% of this visit. Patient Condition at Discharge: Fair Plan - Discharge Summary Discharge Rx Participant: No New Discharge Prescriptions: New metroNIDAZOLE [Flagyl] 500 mg PO TID 42 Days #126 tab amLODIPine [Norvasc] 10 mg PO DAILY tab cefTRIAXone [Rocephin] 2 gm IVPB Q24H 42 Days #42 each Collagenase [Santyl Ointment] 1 applic TOPICAL DAILY each Fluconazole [Diflucan] 100 mg PO DAILY 14 Days #14 tab Heparin Sodium,Porcine (1 ml) [Heparin Sodium] 5,000 unit SQ Q12HR each Continue Carbidopa-Levodopa 25-100 mg [Sinemet 25-100 mg] 1 tab PO Q8H Tussin Dm 10 ml PO Q4H PRN PRN Reason: Cough INSULIN LISPRO (HumaLOG) [humaLOG] See Protocol SQ ACHS lisinopriL [Zestril] 10 mg PO BID Tamsulosin HCl [Flomax] 0.4 mg PO DAILY guaiFENesin 400 mg PO Q4H PRN PRN Reason: cough/congestion Magnesium Hydroxide [Milk of Magnesia] 2,400 mg PO DAILY PRN PRN Reason: Constipation Acetaminophen Tab [Tylenol] 650 mg PO Q4H PRN PRN Reason: Pain Or Fever > 100.5 House Supplement 120 ml PO BID Fluticasone Propion/Salmeterol [Advair 100-50 Diskus] 1 puff PO RT-BID Sennosides/Docusate Sodium [Senna-S 8.6-50 mg Tablet] 2 tab PO DAILY FLUoxetine HCL [PROzac] 10 mg PO DAILY Pimavanserin Tartrate [Nuplazid] 34 mg PO HS Metoprolol Succinate (ER) [Toprol XL] 100 mg PO DAILY Insulin Glargine,Hum.rec.anlog [Lantus Solostar Pen] 20 units SQ DAILY Atorvastatin [Lipitor] 10 mg PO HS Active Liquid Protein 30 ml PO DAILY Changed traMADol HCL 50 mg PO TID PRN #8 tab PRN Reason: Pain Discontinued ALPRAZolam [Xanax] 0.5 mg PO Q8H PRN PRN Reason: Anxiety Acetaminophen Tab [Tylenol] 650 mg PO BID QUEtiapine [SEROquel] 100 mg PO BID Discharge Medication List Carbidopa-Levodopa 25-100 mg [Sinemet 25-100 mg] 1 tab PO Q8H 09/11/19 [History] Acetaminophen Tab [Tylenol] 650 mg PO Q4H PRN 01/06/24 [History] Active Liquid Protein 30 ml PO DAILY 01/06/24 [History] Atorvastatin [Lipitor] 10 mg PO HS 01/06/24 [History] FLUoxetine HCL [PROzac] 10 mg PO DAILY 01/06/24 [History] Fluticasone Propion/Salmeterol [Advair 100-50 Diskus] 1 puff PO RT-BID 01/06/24 [History] House Supplement 120 ml PO BID 01/06/24 [History] INSULIN LISPRO (HumaLOG) [humaLOG] See Protocol SQ ACHS 01/06/24 [History] Insulin Glargine,Hum.rec.anlog [Lantus Solostar Pen] 20 units SQ DAILY 01/06/24 [History] Magnesium Hydroxide [Milk of Magnesia] 2,400 mg PO DAILY PRN 01/06/24 [History] Metoprolol Succinate (ER) [Toprol XL] 100 mg PO DAILY 01/06/24 [History] Pimavanserin Tartrate [Nuplazid] 34 mg PO HS 01/06/24 [History] Sennosides/Docusate Sodium [Senna-S 8.6-50 mg Tablet] 2 tab PO DAILY 01/06/24 [History] Tamsulosin HCl [Flomax] 0.4 mg PO DAILY 01/06/24 [History] Tussin Dm 10 ml PO Q4H PRN 01/06/24 [History] guaiFENesin 400 mg PO Q4H PRN 01/06/24 [History] lisinopriL [Zestril] 10 mg PO BID 01/06/24 [History] Collagenase [Santyl Ointment] 1 applic TOPICAL DAILY each 01/13/24 [Rx] Fluconazole [Diflucan] 100 mg PO DAILY 14 Days #14 tab 01/13/24 [Rx] Heparin Sodium,Porcine (1 ml) [Heparin Sodium] 5,000 unit SQ Q12HR each 01/13/24 [Rx] amLODIPine [Norvasc] 10 mg PO DAILY tab 01/13/24 [Rx] cefTRIAXone [Rocephin] 2 gm IVPB Q24H 42 Days #42 each 01/13/24 [Rx] metroNIDAZOLE [Flagyl] 500 mg PO TID 42 Days #126 tab 01/13/24 [Rx] traMADol HCL 50 mg PO TID PRN #8 tab 01/13/24 [Rx] Follow up Appointment(s)/Referral(s): Ernesto Zepeda, [NON-STAFF] - As Needed Tomy Yen MD [Primary Care Provider] - 1-2 days [facility] [NON-STAFF] - 1 Week Thomas Sanabria MD [STAFF PHYSICIAN] - 1 Week Ambulatory/Diagnostic Orders: Basic Metabolic Panel [LAB.AMB] Time Frame: 3 Days, Location: None Selected Complete Blood Count w/diff [LAB.AMB] Location: None Selected Complete Blood Count w/diff [LAB.AMB] Location: None Selected Comprehensive Metabolic Panel [LAB.AMB] Location: None Selected Erythrocyte Sedimentation Rate [LAB.AMB] Location: None Selected C Reactive Protein [LAB.AMB] Time Frame: 1 Week, Location: None Selected Activity/Diet/Wound Care/Special Instructions: Local wound care: Local wound care with santyl daily to the sacral ulceration Follow up with Dr Sanabria in the office. Discharge Disposition: TRANSFER TO SNF/ECF
[2024-01-14 11:15] LABS: Glucose,Whole Blood 116 mg/dL (70-110)
[2024-01-14] MEDS ORDERED: POTASSIUM CHLORIDE ER 20 MEQ TAB.ER PO SCH ×2 (13:00)
[2024-01-14 14:28] VITALS: BP 133/62; PULSE 71; TEMP 98.7
--- NOTE | 2024-01-14 14:54 | P.PN ---
Subjective Progress Note Date: 01/13/24 Principal diagnosis: Reason for follow-up infected sacral pressure ulcer Patient is a 68-year-old male with a past medical his significant for diabetes mellitus hypertension hyperlipidemia coronary disease [place] patient has been brought into the hospital for evaluation of mental status changes, patient was noticed to have an infected sacral pressure ulcer prompting this consultation.Patient is status post surgical debridement of his sacral pressure ulcer complicated by surgery on 01/08/2024 no OR cultures were done On today's evaluation 01/13/2024,the patient remains to be afebrile, patient is on room air not requiring supplemental oxygen and denies any shortness of breath no chest pain or cough.Patient no vomiting or diarrhea preventing nursing staff, no worsening pain to the sacral wound area. Patient did have a sed rate of 48 creatinine 0.6 sacral wound culture with Dina albicans Objective - Vital Signs Vital signs: Vital Signs Temp 98.6 F 01/13/24 07:45 Pulse 85 01/13/24 07:45 Resp 18 01/13/24 08:33 BP 152/40 01/13/24 07:45 Pulse Ox 94 L 01/13/24 07:45 FiO2 Intake & Output 01/12/24 01/13/24 01/13/24 18:59 06:59 18:59 Intake Total 118 150 Output Total 950 1525 700 Balance -833 -5850 -700 Intake: Oral 118 150 Output: Urine 950 1525 700 Uretheral (Pillai) 950 Other: Voiding Method Indwelling Catheter Indwelling Catheter Indwelling Catheter # Bowel Movements 1 1 - Exam GENERAL DESCRIPTION: An elderly male lying in bed in no distress RESPIRATORY SYSTEM: Unlabored breathing , decreased breath sounds at bases HEART: S1 S2 regular rate and rhythm , ABDOMEN: Soft , no tenderness Patient did have a stage IV sacral ulcer wound base was clean wound is palpable cultures obtained - Labs CBC & Chem 7: 01/09/24 05:54 01/13/24 04:27 Labs: Abnormal Lab Results - Last 24 Hours (Table) 01/12/24 01/12/24 01/12/24 Range/Units 03:37 16:14 19:36 Potassium 3.3 L (3.5-5.5) mmol/L BUN 6.4 L (9.0-27.0) mg/dL BUN/Creatinine Ratio 9.14 L (12.00-20.00) Ratio Glucose 156 H (70-110) mg/dL POC Glucose (mg/dL) 197 H 217 H (70-110) mg/dL Calcium 8.0 L (8.7-10.3) mg/dL 01/13/24 01/13/24 01/13/24 Range/Units 04:27 06:12 11:52 Potassium 3.4 L (3.5-5.5) mmol/L BUN 6.3 L (9.0-27.0) mg/dL BUN/Creatinine Ratio 10.50 L (12.00-20.00) Ratio Glucose 133 H (70-110) mg/dL POC Glucose (mg/dL) 132 H 120 H (70-110) mg/dL Calcium 8.0 L (8.7-10.3) mg/dL Microbiology - Last 24 Hours (Table) 01/10/24 12:20 Anaerobic Culture - Preliminary Coccyx 01/10/24 12:20 Gram Stain - Final Other - Other Wound Culture - Final Dina albicans Assessment and Plan (1) Infected decubitus ulcer Status: Acute Code(s): L89.90 - PRESSURE ULCER OF UNSPECIFIED SITE, UNSPECIFIED STAGE; L08.9 - LOCAL INFECTION OF THE SKIN AND SUBCUTANEOUS TISSUE, UNSP SNOMED Code(s): 116325865 (2) Penicillin allergy Status: Acute Code(s): Z88.0 - ALLERGY STATUS TO PENICILLIN SNOMED Code(s): 01883098 (3) Pressure ulcer of sacral region, stage 4 Status: Acute Code(s): L89.154 - PRESSURE ULCER OF SACRAL REGION, STAGE 4 SNOMED Code(s): 07161075161163 Plan: 1patient presented to hospital with infected sacral pressure ulcer to the sacral area stage IV with the patient has for couple of months and apparently failing outpatient therapy no concern for possible deeper infection likely from gram-positive skin jethro gram-negative pressure not entirely excluded 2-patient with a penicillin allergy however has tolerated Zosyn without any problem clinical doubt true penicillin allergy 3-patient is status post surgical debridement unfortunately no cultures were done, patient did have a CT of sacrum no bony destruction however there is exposed wound with a clinical diagnosis of osteomyelitis culture has been obtained at the bedside which did grew Dina questionably colonizer versus pathogen patient antibiotic history to Rocephin Diflucan and Flagyl with the patient agreed on discharge discussed with the nursing staff Dictation was produced using [employer] dictation software. please excuse any grammatical, word or spelling errors. Time with Patient: Less than 30
--- NOTE | 2024-01-14 14:55 | P.PN ---
Subjective Progress Note Date: 01/14/24 Principal diagnosis: Reason for follow-up infected sacral pressure ulcer Patient is a 68-year-old male with a past medical his significant for diabetes mellitus hypertension hyperlipidemia coronary disease CT patient has been brought into the hospital for evaluation of mental status changes, patient was noticed to have an infected sacral pressure ulcer prompting this consultation.Patient is status post surgical debridement of his sacral pressure ulcer complicated by surgery on 01/08/2024 no OR cultures were done On today's evaluation 01/14/2024, the patient continues to be afebrile, the patient is on room air and breathing comfortably, the Pt denies having any chest pain or cough, the patient denies having any abdominal pain no vomiting or any diarrhea has been reported by the nursing staff. No new labs obtained today, sacral wound culture grew Dina albicans only Objective - Vital Signs Vital signs: Vital Signs Temp 98.9 F 01/14/24 07:35 Pulse 93 01/14/24 07:35 Resp 17 01/14/24 07:35 BP 173/91 01/14/24 07:35 Pulse Ox 95 01/14/24 07:35 FiO2 Intake & Output 01/13/24 01/14/24 01/14/24 18:59 06:59 18:59 Output Total 1100 400 Balance -1100 -400 Output: Urine 1100 400 Other: Voiding Method Indwelling Catheter Indwelling Catheter Indwelling Catheter # Bowel Movements 1 - Exam GENERAL DESCRIPTION: An elderly male lying in bed in no distress RESPIRATORY SYSTEM: Unlabored breathing , decreased breath sounds at bases HEART: S1 S2 regular rate and rhythm , ABDOMEN: Soft , no tenderness Patient did have a stage IV sacral ulcer wound base was clean wound is palpable cultures obtained - Labs CBC & Chem 7: 01/09/24 05:54 01/13/24 04:27 Labs: Abnormal Lab Results - Last 24 Hours (Table) 01/13/24 01/13/24 01/14/24 Range/Units 04:27 11:52 06:12 ESR 48 H (0-20) mm/Hr POC Glucose (mg/dL) 120 H 114 H (70-110) mg/dL Assessment and Plan (1) Infected decubitus ulcer Status: Acute Code(s): L89.90 - PRESSURE ULCER OF UNSPECIFIED SITE, UNSPECIFIED STAGE; L08.9 - LOCAL INFECTION OF THE SKIN AND SUBCUTANEOUS TISSUE, UNSP SNOMED Code(s): 520725918 (2) Penicillin allergy Status: Acute Code(s): Z88.0 - ALLERGY STATUS TO PENICILLIN SNOMED Code(s): 34877887 (3) Pressure ulcer of sacral region, stage 4 Status: Acute Code(s): L89.154 - PRESSURE ULCER OF SACRAL REGION, STAGE 4 SNOMED Code(s): 46470965112051 Plan: 1patient presented to hospital with infected sacral pressure ulcer to the sacral area stage IV with the patient has for couple of months and apparently failing outpatient therapy no concern for possible deeper infection likely from gram-positive skin jethro gram-negative pressure not entirely excluded 2-patient with a penicillin allergy however has tolerated Zosyn without any problem clinical doubt true penicillin allergy 3-patient is status post surgical debridement unfortunately no cultures were done, patient did have a CT of sacrum no bony destruction however there is exposed wound with a clinical diagnosis of osteomyelitis culture has been obtained at the bedside which did grew Dina questionably colonizer versus pathogen patient to continue Diflucan oral x 2 weeks along with Rocephin 2 g daily and oral Flagyl x 6 weeks and close outpatient follow-up with weekly monitoring of CRP and sed rate Dictation was produced using [employer] dictation software. please excuse any grammatical, word or spelling errors. Time with Patient: Less than 30
--- NOTE | 2024-01-14 15:54 | P.PN ---
Subjective Progress Note Date: 01/14/24 CHIEF COMPLAINT: sacral decubitus ulcer HISTORY OF PRESENT ILLNESS: Postop day #6 status post debridement of sacral decubitus ulcer of necrotic skin and fat and muscle. Patient has no new complaints. Afebrile. PHYSICAL EXAM: VITAL SIGNS: Reviewed. GENERAL: no acute distress. NEUROLOGIC: Awake. Confused ASSESSMENT: 1. Sacral decubitus ulcer status post debridement PLAN: -Patient being discharged today to ECF -Continue local wound care -Continue antibiotics per ID service -Continue offloading -Patient can be discharged from surgical standpoint Physician Orchard Pruner note has been reviewed by physician. Signing provider agrees with the documented findings, assessment, and plan of care. Objective - Vital Signs Vital signs: Vital Signs Temp 98.7 F 01/14/24 14:00 Pulse 71 01/14/24 14:00 Resp 17 01/14/24 14:00 BP 133/62 01/14/24 14:00 Pulse Ox 96 01/14/24 14:00 FiO2 Intake & Output 01/13/24 01/14/24 01/14/24 18:59 06:59 18:59 Output Total 1100 400 175 Balance -1100 -400 -175 Output: Urine 1100 400 175 Other: Voiding Method Indwelling Catheter Indwelling Catheter Indwelling Catheter # Bowel Movements 1 1 - Labs CBC & Chem 7: 01/09/24 05:54 01/13/24 04:27 Labs: Abnormal Lab Results - Last 24 Hours (Table) 01/13/24 01/14/24 01/14/24 Range/Units 04:27 06:12 11:14 ESR 48 H (0-20) mm/Hr POC Glucose (mg/dL) 114 H 116 H (70-110) mg/dL Microbiology - Last 24 Hours (Table) 01/10/24 12:20 Anaerobic Culture - Final Coccyx
== END 2024-01-14 14:42 | DRG 853 ==
LOC: EC 11:23 → 4SSUR 16:18
PROVIDERS: ADMIT Hospitalist; ATTEND Hospitalist
PROC: 0KBN0ZZ Excision of Right Hip Muscle, Open Approach (ICD-10-PCS; 2024-01-08)
PROC: 0KBP0ZZ Excision of Left Hip Muscle, Open Approach (ICD-10-PCS; principal; 2024-01-08 14:25)
PROC: 02HV33Z Insertion of Infusion Device into Superior Vena Cava, Percutaneous Approach (ICD-10-PCS; 2024-01-10)
DX: A41.9 Sepsis, unspecified organism (principal); G93.41 Metabolic encephalopathy; L89.154 Pressure ulcer of sacral region, stage 4; E11.52 Type 2 diabetes mellitus with diabetic peripheral angiopathy with gangrene; F02.82 Dementia in other diseases classified elsewhere, unspecified severity, with psychotic disturbance; M86.8X8 Other osteomyelitis, other site; B37.89 Other sites of candidiasis; A52.16 Charcot's arthropathy (tabetic); F05 Delirium due to known physiological condition; N39.0 Urinary tract infection, site not specified; L02.818 Cutaneous abscess of other sites; E11.622 Type 2 diabetes mellitus with other skin ulcer; E11.628 Type 2 diabetes mellitus with other skin complications; E11.22 Type 2 diabetes mellitus with diabetic chronic kidney disease; E11.69 Type 2 diabetes mellitus with other specified complication; E11.40 Type 2 diabetes mellitus with diabetic neuropathy, unspecified; Z79.4 Long term (current) use of insulin; G20.A1 Parkinson's disease without dyskinesia, without mention of fluctuations; J45.909 Unspecified asthma, uncomplicated; I12.9 Hypertensive chronic kidney disease with stage 1 through stage 4 chronic kidney disease, or unspecified chronic kidney disease; G47.30 Sleep apnea, unspecified; H91.90 Unspecified hearing loss, unspecified ear; I25.10 Atherosclerotic heart disease of native coronary artery without angina pectoris; E78.5 Hyperlipidemia, unspecified; Z79.51 Long term (current) use of inhaled steroids; I25.2 Old myocardial infarction; Z86.14 Personal history of Methicillin resistant Staphylococcus aureus infection; Z79.899 Other long term (current) drug therapy; Z88.0 Allergy status to penicillin; N18.9 Chronic kidney disease, unspecified
CPT/HCPCS: 36415; 36573; 70450; 71046; 72192; 80048; 80053; 80202; 81001; 82140; 82565; 83036; 83605; 83735; 83880; 84100; 84443; 84484; 85025; 85610; 85652; 85730; 86140; 87040; 87070; 87075; 87205; 88304; 93005; 94640; 96361; 96365; 96367; 99285